=== PATIENT | female | born 1945 | race Caucasian/White ===

== ENCOUNTER 2018-11-21 12:35 | Emergency (ER) | payer MEDICARE, OTHER ==
[2018-11-21 12:49] VITALS: BP 170/72
--- NOTE | 2018-11-21 13:00 | EDM.PDOC ---
ED HPI GENERAL MEDICAL PROBLEM - General Chief Complaint: Respiratory Problem Stated Complaint: RESPIRATORY ISSUES Time Seen by Provider: 11/21/18 12:56 - History of Present Illness INITIAL COMMENTS - FREE TEXT/NARRATIVE: 73-year-old female presents emergency room with increasing shortness of breath. Patient has O2 dependent COPD she's on 2-1/2 L all the time. Yesterday she started coming down with a runny nose and when she woke up this morning she had worsening shortness of breath. Patient has nebulizers at home she uses albuterol once a day then she uses her inhalers later in the day if she needs them. She has not increased the use of her nebulizer. She's had some increasing chest discomfort with this shortness of breath. She's not aware of any fevers or chills. Left Flank Pain Score (Numeric/FACES): 8 - Related Data Allergies Allergy/AdvReac Type Severity Reaction Status Date / Time No Known Allergies Allergy Verified 11/21/18 12:49 Home Meds: Home Meds Abaloparatide [Tymlos] 1.56 ml SQ DAILY 08/13/17 [History] Acetaminophen/HYDROcodone [[place] 325-5 MG] 1 tab PO Q12H 08/13/17 [History] Acetaminophen/HYDROcodone [[place] 325-5 MG] 1 tab PO Q12H 08/13/17 [History] Albuterol [Proventil HFA] 2 puff INH Q6H 08/13/17 [History] Albuterol [Proventil Neb Soln] 1 dose NEB Q4H PRN 08/13/17 [History] Albuterol [Proventil Neb Soln] 1 dose NEB TID 08/13/17 [History] Allopurinol [Zyloprim] 100 mg PO BID 08/13/17 [History] Aspirin [Halfprin] 81 mg PO DAILY 08/13/17 [History] Clopidogrel [Plavix] 75 mg PO DAILY 08/13/17 [History] Cranberry Fruit Concentrate [Azo Cranberry] 1 tab PO DAILY 08/13/17 [History] Ezetimibe [Zetia] 10 mg PO DAILY 08/13/17 [History] Furosemide [Lasix] 20 mg PO DAILY 08/13/17 [History] Gabapentin [Gralise] 600 mg PO BID 08/13/17 [History] Insulin Detemir [Levemir] 30 units SQ DAILY 08/13/17 [History] Isosorbide Mononitrate [Imdur] 30 mg PO DAILY 08/13/17 [History] Losartan [Cozaar] 50 mg PO DAILY 08/13/17 [History] Metoprolol Tartrate [Lopressor] 25 mg PO BID 08/13/17 [History] Nitroglycerin [Nitrostat] 0.4 mg SL ASDIRECTED PRN 08/13/17 [History] Spironolactone [Aldactone] 25 mg PO QAM 08/13/17 [History] Tiotropium Br/Olodaterol HCl [Stiolto Respimat Inhal [place]] 2 puff INH DAILY [History] amLODIPine Besylate [Norvasc] 10 mg PO DAILY 08/13/17 [History] atorvaSTATin [Lipitor] 40 mg PO DAILY 08/13/17 [History] Doxycycline [Vibramycin] 100 mg PO Q12H #14 tab 11/21/18 [Rx] predniSONE 10 mg PO .TAPER #30 tab 11/21/18 [Rx] Past Medical History HEENT History: Reports: Impaired Vision Other HEENT History: Wears glasses Cardiovascular History: Reports: CAD, High Cholesterol, Hypertension, [place], Stents , Other (See Below) Other Cardiovascular History: edema, hypotension Respiratory History: Reports: COPD, Sleep Apnea, SOB, Other (See Below) Other Respiratory History: restrictive lung disease, oxygen at night and during Gastrointestinal History: Reports: GERD Other Genitourinary History: HX of Renal Insuff. 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 Musculoskeletal History: Reports: Arthritis, Osteoporosis Neurological History: Reports: Other (See Below) Other Neuro History: back surgery Psychiatric History: Reports: None Endocrine/Metabolic History: Reports: Diabetes, Type II Hematologic History: Reports: None Immunologic History: Reports: None Oncologic (Cancer) History: Reports: None Other Dermatologic History: eczema - Past Surgical History Head Surgeries/Procedures: Reports: None Cardiovascular Surgical History: Reports: None Respiratory Surgical History: Reports: None GI Surgical History: Reports: None Endocrine Surgical History: Reports: None Neurological Surgical History: Reports: None Musculoskeletal Surgical History: Reports: Arthroscopic Knee, Shoulder Surgery Other Musculoskeletal Surgeries/Procedures:: Knee surgery 3 months ago Social & Family History - Tobacco Use Smoking Status *Q: Never Smoker Second Hand Smoke Exposure: No - Caffeine Use Caffeine Use: Reports: Energy Drinks, Tea - Recreational Drug Use Recreational Drug Use: No ED ROS GENERAL - Review of Systems Review Of Systems: See Below Constitutional: Reports: No Symptoms HEENT: Reports: Rhinitis, Sinus Problem Respiratory: Reports: Shortness of Breath, Wheezing, Pleuritic Chest Pain, Cough , Sputum (Perhaps a little bit she is unsure if it's coming from her lungs or from postnasal drip). Denies: Hemoptysis Cardiovascular: Denies: Dyspnea on Exertion, Edema, Palpitations Endocrine: Reports: No Symptoms GI/Abdominal: Reports: No Symptoms : Reports: No Symptoms ED EXAM, GENERAL - Physical Exam Exam: See Below Exam Limited By: No Limitations General Appearance: Alert, No Apparent Distress Eye Exam: Bilateral Eye: Conjunctival Injection (Not much conjunctival injection she's got a fair amount of dried debris on the eyelashes most consistent with blepharitis.) Ears: Normal External Exam, Normal Canal, Hearing Grossly Normal Nose: Clear Rhinorrhea, Other (No sinus tenderness with percussion) Throat/Mouth: Normal Inspection, Normal Lips, Normal Oropharynx, Normal Voice, No Airway Compromise Head: Atraumatic, Normocephalic Neck: Normal Inspection, Supple, Non-Tender, Full Range of Motion Respiratory/Chest: No Respiratory Distress, Normal Breath Sounds, Crackles ( bilateral lung bases), Other (Slightly diminished breath sounds lung sounds otherwise clear). No: Lungs Clear Cardiovascular: Regular Rate, Rhythm, Systolic Murmur (3/6 heard best in the left upper sternal border) GI/Abdominal: Normal Bowel Sounds, Soft, Non-Tender, Other (Obese) Neurological: Alert, Oriented, Normal Cognition Course - Vital Signs Last Recorded V/S: Last Vital Signs Temp 37.2 C 11/21/18 12:48 Pulse 93 11/21/18 12:48 Resp 20 11/21/18 12:48 BP 170/72 H 11/21/18 12:48 Pulse Ox 90 L 11/21/18 13:19 - Orders/Labs/Meds Orders: Active Orders 24 hr Category Date Time Status EKG Documentation Completion [RC] STAT Care 11/21/18 13:20 Active RT Aerosol Therapy [RC] ASDIRECTED Care 11/21/18 13:19 Active Chest 1V Frontal [CR] Stat Exams 11/21/18 13:19 Taken Labs: Laboratory Tests 11/21/18 11/21/18 Range/Units 13:31 13:31 WBC 14.47 H (3.98-10.04) K/mm3 RBC 4.53 (3.98-5.22) M/mm3 Hgb 13.9 (11.2-15.7) gm/L Hct 42.2 (34.1-44.9) % MCV 93.2 (79.4-94.8) fl MCH 30.7 (25.6-32.2) pg MCHC 32.9 (32.2-35.5) g/dl RDW Std Deviation 43.5 (36.4-46.3) fL Plt Count 280 (182-369) K/mm3 MPV 9.1 L (9.4-12.3) fl Neutrophils % (Manual) 83 H (40-60) % Band Neutrophils % 0 (0-10) % Lymphocytes % (Manual) 9 L (20-40) % Atypical Lymphs % 0 % Monocytes % (Manual) 7 (2-10) % Eosinophils % (Manual) 1 (0.7-5.8) % Basophils % (Manual) 0 L (0.1-1.2) Platelet Estimate Adequate RBC Morph Comment Normal Sodium 138 (136-145) mEq/L Potassium 3.6 (3.5-5.1) mEq/L Chloride 103 (98-107) mEq/L Carbon Dioxide 25 (21-32) mEq/L Anion Gap 13.6 (5-15) BUN 14 (7-18) mg/dL Creatinine 1.0 (0.55-1.02) mg/dL Est Cr Clr Drug Dosing 34.91 mL/min Estimated GFR (MDRD) 54 (>60) mL/min BUN/Creatinine Ratio 14.0 (14-18) Glucose 116 H (83-115) mg/dL Calcium 9.6 (8.5-10.1) mg/dL Total Bilirubin 0.6 (0.2-1.0) mg/dL AST 20 (15-37) U/L ALT 16 (14-59) U/L Alkaline Phosphatase 105 (46-116) U/L Troponin I < 0.017 (0.00-0.056) ng/mL Total Protein 7.4 (6.4-8.2) g/dl Albumin 2.9 L (3.4-5.0) g/dl Globulin 4.5 gm/dL Albumin/Globulin Ratio 0.6 L (1-2) Meds: Medications Discontinued Medications Generic Name Dose Route Start Last Admin Trade Name Anival PRN Reason Stop Dose Admin Albuterol/Ipratropium 3 ml 11/21/18 13:19 11/21/18 13:27 Duoneb 3.0-0.5 Mg/3 Ml NEB 11/21/18 13:20 3 ml ONETIME ONE Administration Prednisone 60 mg 11/21/18 13:21 11/21/18 13:41 Prednisone PO 11/21/18 13:22 60 mg ONETIME ONE Administration - Re-Assessments/Exams Free Text/Narrative Re-Assessment/Exam: 11/21/18 15:17 Labs reviewed patient is doing much better and would really like to go home chest x-ray shows some atelectasis in the right lung base suspect she may have an infiltrate or some atelectasis behind the heart but I one view chest discomfort hard to know for sure. Discussed this with the patient she would like to go home we'll start her on doxycycline she'll increase her albuterol nebulizers to 4 times a day at home from once a day and put her on some oral steroids. Departure - Departure Time of Disposition: 15:19 Disposition: Home, Self-Care 01 Clinical Impression: COPD exacerbation, Blepharitis of both eyes - Discharge Information Prescriptions: Doxycycline [Vibramycin] 100 mg PO Q12H #14 tab predniSONE 10 mg PO .TAPER #30 tab Referrals: Man Corbett MD [Primary Care Provider] - Forms: ED Department Discharge Additional Instructions: Return to emergency room with any questions problems worsening symptoms. Take the medications as directed. You be on a prednisone taper and doxycycline twice daily for a week. Increase her nebulizers to at least 4 times a day every 6 hours and if needed may increase it to every 4 hours. Follow-up with Dr. Ballesteros early this next week. Use warm moist compresses over your eyes every couple hours while awake and first thing in the morning when in the shower use Pedro's baby shampoo over the eyelashes. - My Orders Last 24 Hours: My Active Orders 11/21/18 13:19 RT Aerosol Therapy [RC] ASDIRECTED Chest 1V Frontal [CR] Stat 11/21/18 13:20 EKG Documentation Completion [RC] STAT - Assessment/Plan Last 24 Hours: My Active Orders 11/21/18 13:19 RT Aerosol Therapy [RC] ASDIRECTED Chest 1V Frontal [CR] Stat 11/21/18 13:20 EKG Documentation Completion [RC] STAT
[2018-11-21] MEDS ORDERED: Albuterol/Ipratropium 3.0-0.5 MG/3 ML Neb Soln NEB ONE (13:19)
[2018-11-21] MEDS ORDERED: predniSONE 20 MG Tab PO ONE (13:21)
[2018-11-21] MEDS ORDERED: Doxycycline 100 MG Cap PO ONE (15:18)
--- NOTE | 2018-11-23 09:22 | CR ---
Chest: Portable view of the chest was obtained. Comparison: Prior chest CT study of 08/09/16 and chest x-ray of 05/01/09. Heart size and mediastinum are within normal limits for portable technique. Slight increased density is noted behind the left heart. Lungs otherwise are clear. Bony structures show degenerative change within both shoulders. Scoliosis and degenerative change are seen within the spine. Impression: 1. Slight increased density behind the left heart. Mild area of pneumonia is a possibility if patient has infectious symptoms. 2. Other findings believed to be chronic. Diagnostic code #3
== END 2018-11-21 15:38 | disposition home or self-care (01) ==
LOC: JD.ED 12:35
DX: J44.1 Chronic obstructive pulmonary disease with (acute) exacerbation (principal); H01.006 Unspecified blepharitis left eye, unspecified eyelid; H01.003 Unspecified blepharitis right eye, unspecified eyelid; I10 Essential (primary) hypertension; E11.9 Type 2 diabetes mellitus without complications; I25.2 Old myocardial infarction; E78.00 Pure hypercholesterolemia, unspecified; Z79.899 Other long term (current) drug therapy; Z79.51 Long term (current) use of inhaled steroids; Z79.82 Long term (current) use of aspirin; Z90.710 Acquired absence of both cervix and uterus
CPT/HCPCS: 36415; 71045; 80053; 84484; 85007; 85027; 93005; 94640; 99284; A9270; 99283; J7620-GY

== ENCOUNTER 2019-04-15 17:41 | Emergency (ER) | payer MEDICARE, OTHER ==
[2019-04-15 18:15] VITALS: BP 140/83; PULSE 83
--- NOTE | 2019-04-15 18:44 | EDM.PDOC ---
<Josselin Felix - Last Filed: 04/15/19 18:35> ED HPI GENERAL MEDICAL PROBLEM - General Chief Complaint: Respiratory Problem Stated Complaint: COLD Time Seen by Provider: 04/15/19 18:25 Source of Information: Reports: Patient History Limitations: Reports: No Limitations - History of Present Illness INITIAL COMMENTS - FREE TEXT/NARRATIVE: 73-year-old female presents with a productive cough and shortness of breath for a couple days. She states that she has a history of COPD and had an acute exacerbation in the fall for which she was placed on antibiotics. She has received her influenza vaccination and is a non-smoker. She describes this episode's cough as productive, but denies hemoptysis. She has also had chills but no fever. The patient states that she becomes very short of breath with activity, which mildly improves with rest. She has been using her home oxygen more frequently which has caused a few scant nosebleeds. The patient denies sinus congestion, ear pain, vomiting, and diarrhea. She has had body aches, nausea, and a mild sore throat. Onset: Other (a couple days ago) Location: Reports: Chest Improves with: Reports: Rest Worsens with: Reports: Movement Associated Symptoms: Reports: cough w sputum, Fever/Chills (chills, no fever ), Nausea/Vomiting (nausea, no vomiting), Shortness of Breath. 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 Shoulder Pain Score (Numeric/FACES): 5 - Related Data Allergies Allergy/AdvReac Type Severity Reaction Status Date / Time No Known Allergies Allergy Verified 02/01/19 15:44 Home Meds: Home Meds Abaloparatide [Tymlos] 1.56 ml SQ DAILY 08/13/17 [History] Acetaminophen/HYDROcodone [[place] 325-5 MG] 1 tab PO Q12H 08/13/17 [History] Acetaminophen/HYDROcodone [[place] 325-5 MG] 1 tab PO Q12H 08/13/17 [History] Albuterol [Proventil HFA] 2 puff INH Q6H 08/13/17 [History] Albuterol [Proventil Neb Soln] 1 dose NEB Q4H PRN 08/13/17 [History] Albuterol [Proventil Neb Soln] 1 dose NEB TID 08/13/17 [History] Aspirin [Halfprin] 81 mg PO DAILY 08/13/17 [History] Clopidogrel [Plavix] 75 mg PO DAILY 08/13/17 [History] Cranberry Fruit Concentrate [Azo Cranberry] 1 tab PO DAILY 08/13/17 [History] Ezetimibe [Zetia] 10 mg PO DAILY 08/13/17 [History] Furosemide [Lasix] 20 mg PO DAILY 08/13/17 [History] Gabapentin [Gralise] 600 mg PO BID 08/13/17 [History] Insulin Detemir [Levemir] 30 units SQ DAILY 08/13/17 [History] Isosorbide Mononitrate [Imdur] 30 mg PO DAILY 08/13/17 [History] Losartan [Cozaar] 50 mg PO DAILY 08/13/17 [History] Metoprolol Tartrate [Lopressor] 25 mg PO BID 08/13/17 [History] Nitroglycerin [Nitrostat] 0.4 mg SL ASDIRECTED PRN 08/13/17 [History] Spironolactone [Aldactone] 25 mg PO QAM 08/13/17 [History] Tiotropium Br/Olodaterol HCl [Stiolto Respimat Inhal [place]] 2 puff INH DAILY [History] allopurinoL [Zyloprim] 100 mg PO BID 08/13/17 [History] amLODIPine Besylate [Norvasc] 10 mg PO DAILY 08/13/17 [History] atorvaSTATin [Lipitor] 40 mg PO DAILY 08/13/17 [History] Doxycycline [Vibramycin] 100 mg PO Q12H #14 tab 11/21/18 [Rx] predniSONE 10 mg PO .TAPER #30 tab 11/21/18 [Rx] Doxycycline [Vibramycin] 100 mg PO BID #14 tab 04/15/19 [Rx] predniSONE 20 mg PO ASDIRECTED #15 tab 04/15/19 [Rx] Past Medical History HEENT History: Reports: Impaired Vision Other HEENT History: Wears glasses Cardiovascular History: Reports: CAD, High Cholesterol, Hypertension, [place], Stents , Other (See Below) Other Cardiovascular History: edema, hypotension Respiratory History: Reports: COPD, Sleep Apnea, SOB, Other (See Below) Other Respiratory History: restrictive lung disease, oxygen at night and during Gastrointestinal History: Reports: GERD Other Genitourinary History: HX of Renal Insuff. 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 Musculoskeletal History: Reports: Arthritis, Osteoporosis Neurological History: Reports: Other (See Below) Other Neuro History: back surgery Psychiatric History: Reports: None Endocrine/Metabolic History: Reports: Diabetes, Type II Hematologic History: Reports: None Immunologic History: Reports: None Oncologic (Cancer) History: Reports: None Other Dermatologic History: eczema - Past Surgical History Head Surgeries/Procedures: Reports: None Cardiovascular Surgical History: Reports: None Respiratory Surgical History: Reports: None GI Surgical History: Reports: None Female Surgical History: Reports: Hysterectomy Endocrine Surgical History: Reports: None Neurological Surgical History: Reports: None Musculoskeletal Surgical History: Reports: Arthroscopic Knee, Shoulder Surgery, Other (See Below) Other Musculoskeletal Surgeries/Procedures:: Knee surgery 3 months ago, back surgery. Social & Family History - Tobacco Use Smoking Status *Q: Never Smoker Second Hand Smoke Exposure: Yes - Caffeine Use Caffeine Use: Reports: Coffee, Energy Drinks, Tea - Recreational Drug Use Recreational Drug Use: No ED ROS GENERAL - Review of Systems Review Of Systems: See Below Constitutional: Reports: Chills, Fatigue. Denies: Fever HEENT: Reports: Nosebleed (scant from oxygen use), Throat Pain (mild). Denies: Ear Pain, Eye Pain, Sinus Problem, Throat Swelling Respiratory: Reports: Shortness of Breath, Cough, Sputum. Denies: Hemoptysis Cardiovascular: Reports: Dyspnea on Exertion. Denies: Chest Pain, Palpitations GI/Abdominal: Reports: Nausea. Denies: Abdominal Pain, Constipation, Diarrhea, Vomiting : Reports: No Symptoms Musculoskeletal: Reports: Other (generalized body aches) Skin: Reports: No Symptoms Neurological: Reports: No Symptoms Psychiatric: Reports: No Symptoms Immunologic: Reports: No Symptoms ED EXAM, GENERAL - Physical Exam Exam: See Below Exam Limited By: No Limitations General Appearance: Alert, WD/WN, Mild Distress Ears: Normal External Exam, Normal Canal, Hearing Grossly Normal, Normal TMs Nose: Normal Inspection, Normal Mucosa, No Blood Throat/Mouth: Normal Inspection, Normal Lips, Normal Teeth, Normal Gums, Normal Oropharynx, Normal Voice, No Airway Compromise Head: Atraumatic, Normocephalic Neck: Normal Inspection, Supple, Non-Tender, Full Range of Motion Respiratory/Chest: No Accessory Muscle Use, Chest Non-Tender, Respiratory Distress (mild), Crackles Cardiovascular: Normal Peripheral Pulses, Regular Rate, Rhythm, Systolic Murmur (2+) Neurological: Alert, Oriented, Normal Cognition Psychiatric: Normal Affect, Normal Mood Skin Exam: Warm, Dry, Intact, Normal Color, No Rash Course - Vital Signs Last Recorded V/S: Last Vital Signs Temp 97.7 F 04/15/19 18:03 Pulse 83 04/15/19 18:03 Resp 18 04/15/19 18:03 BP 140/83 04/15/19 18:03 Pulse Ox 90 L 04/15/19 18:39 - Orders/Labs/Meds Labs: Laboratory Tests 04/15/19 04/15/19 Range/Units 18:45 18:45 WBC 11.41 H (3.98-10.04) K/mm3 RBC 4.31 (3.98-5.22) M/mm3 Hgb 13.4 (11.2-15.7) gm/dl Hct 41.5 (34.1-44.9) % MCV 96.3 H (79.4-94.8) fl MCH 31.1 (25.6-32.2) pg MCHC 32.3 (32.2-35.5) g/dl RDW Std Deviation 48.7 H (36.4-46.3) fL Plt Count 274 (182-369) K/mm3 MPV 8.9 L (9.4-12.3) fl Neutrophils % (Manual) 82 H (40-60) % Band Neutrophils % 0 (0-10) % Lymphocytes % (Manual) 16 L (20-40) % Atypical Lymphs % 0 % Monocytes % (Manual) 2 (2-10) % Eosinophils % (Manual) 0 L (0.7-5.8) % Basophils % (Manual) 0 L (0.1-1.2) Platelet Estimate Adequate RBC Morph Comment Normal Sodium 138 (136-145) mEq/L Potassium 3.9 (3.5-5.1) mEq/L Chloride 102 (98-107) mEq/L Carbon Dioxide 27 (21-32) mEq/L Anion Gap 12.9 (5-15) BUN 13 (7-18) mg/dL Creatinine 1.2 H (0.55-1.02) mg/dL Est Cr Clr Drug Dosing 29.10 mL/min Estimated GFR (MDRD) 44 (>60) mL/min BUN/Creatinine Ratio 10.8 L (14-18) Glucose 90 (83-115) mg/dL Calcium 10.2 H (8.5-10.1) mg/dL Total Bilirubin 0.6 (0.2-1.0) mg/dL AST 33 (15-37) U/L ALT 26 (14-59) U/L Alkaline Phosphatase 115 (46-116) U/L Total Protein 7.7 (6.4-8.2) g/dl Albumin 3.3 L (3.4-5.0) g/dl Globulin 4.4 gm/dL Albumin/Globulin Ratio 0.8 L (1-2) Departure - Departure Disposition: Home, Self-Care 01 Clinical Impression: Bronchopneumonia, COPD exacerbation - Discharge Information Instructions: Chronic Obstructive Pulmonary Disease Exacerbation, [id number] Referrals: Man Corbett MD [Primary Care Provider] - Forms: ED Department Discharge Additional Instructions: You were evaluated in the ED today regarding your increased respiratory difficulty and cough. Laboratory evaluation demonstrates to have a mildly increased white count, and your chest x-ray was suggestive of a bronchopneumonia. You will be started on a course of prednisone; and doxycycline, an antibiotic. Please take 1 tab 2 times daily until gone. You may continue to use your home oxygen as tolerated, you may try to use some saline moisturizing gel to help provide lubrication to your nares to help prevent nosebleeds due to increased oxygen use. Please continue to use your albuterol inhalers/nebulizers as directed, you may want to try to increase your nebulizer to 4 times daily if you are not already doing so. This should help also relieve the work of breathing. Recommend a close follow-up with your family physician early next week, or seek re-evaluation sooner if your symptoms seem to change or worsen. Please return to the ED at any time if your symptoms change or worsen. Sepsis Event Note - Evaluation Sepsis Screening Result: No Definite Risk - Focused Exam Vital Signs: Vital Signs Temp Pulse Resp BP Pulse Ox Pulse Ox 04/15/19 18:39 90 L 04/15/19 18:03 97.7 F 83 18 140/83 88 L Date Exam was Performed: 04/15/19 Time Exam was Performed: 18:35 <Roseanne Quiroz - Last Filed: 04/15/19 20:04> Course - Re-Assessments/Exams Free Text/Narrative Re-Assessment/Exam: 04/15/19 19:10 I have read and reviewed the student's HPI and examined the patient and agree with NEERU Vasquez-student. Patient presents to the ED for the evaluation of a cough and increasing congestion. CBC, CMP, influenza screen, chest x-ray will be done at this time. If all are within normal limits, patient is likely having an exacerbation of her chronic lung disease. Patient will likely be treated with steroids and a possible antibiotic. 04/15/19 19:58 Patient's chest x-ray is read as increased lung markings within the right side of the chest, with lesser increased markings noted on the left side, findings presumably represent rather diffuse bronchopneumonia. And other incidental findings. Due to the patient's clinical course, her laboratory evaluation demonstrates a mildly elevated CBC at 11,000, patient will be treated with prednisone and antibiotics and sent home at this time with other general recommendations. Departure - Departure Time of Disposition: 20:00 Condition: Fair - Discharge Information *PRESCRIPTION DRUG MONITORING PROGRAM REVIEWED*: No *COPY OF PRESCRIPTION DRUG MONITORING REPORT IN PATIENT CRISTÓBAL: No Sepsis Event Note - Focused Exam Date Exam was Performed: 04/15/19 Time Exam was Performed: 19:58
--- NOTE | 2019-04-15 19:42 | CR ---
Chest: 2 views of the chest were obtained. Comparison: Prior chest x-ray of 02/15/19. Increased lung markings are noted within the right side of the chest. Lesser increased markings are noted on the left side. Heart size is normal. Upper mediastinum is normal. Scoliosis and degenerative change is noted within the spine. Impression: 1. Increased lung markings as described above. Findings presumably represent rather diffuse bronchopneumonia. 2. Other findings which are believed to be incidental as noted above. Diagnostic code #3 Study was dictated in [place] Standard Time
== END 2019-04-15 20:25 | disposition home or self-care (01) ==
LOC: JD.ED 17:41
DX: J18.0 Bronchopneumonia, unspecified organism (principal); J44.1 Chronic obstructive pulmonary disease with (acute) exacerbation; I25.10 Atherosclerotic heart disease of native coronary artery without angina pectoris; E78.00 Pure hypercholesterolemia, unspecified; I10 Essential (primary) hypertension; I25.2 Old myocardial infarction; M81.0 Age-related osteoporosis without current pathological fracture; E11.9 Type 2 diabetes mellitus without complications; Z95.5 Presence of coronary angioplasty implant and graft; Z79.82 Long term (current) use of aspirin; Z79.02 Long term (current) use of antithrombotics/antiplatelets; Z79.4 Long term (current) use of insulin; Z79.899 Other long term (current) drug therapy; Z79.51 Long term (current) use of inhaled steroids; Z79.52 Long term (current) use of systemic steroids
CPT/HCPCS: 36415; 71046; 71046-26; 80053; 85007; 85027; 87804; 99285-25

== ENCOUNTER 2019-05-19 14:15 | Inpatient (IN) | payer MEDICARE, OTHER ==
[2019-05-19] MEDS ORDERED: Sodium Chloride 0.9% 10 ML Syringe FLUSH PRN (14:34)
[2019-05-19] MEDS ORDERED: Albuterol/Ipratropium 3.0-0.5 MG/3 ML Neb Soln NEB ONE (14:35)
[2019-05-19] MEDS ORDERED: methylPREDNISolone Sodium Succinate 125 MG/2 ML SDV IVPUSH ONE (14:36)
--- NOTE | 2019-05-19 14:41 | EDM.PDOC ---
ED HPI GENERAL MEDICAL PROBLEM - General Chief Complaint: Respiratory Problem Stated Complaint: SOB Time Seen by Provider: 05/19/19 14:30 Source of Information: Reports: Patient History Limitations: Reports: No Limitations - History of Present Illness INITIAL COMMENTS - FREE TEXT/NARRATIVE: The patient presents for shortness of breath, chest pain and a cough. She has a history of COPD and she is on inhalers and nebs. She is also on home oxygen as needed. She said about 3 weeks ago she got over pneumonia and since then she has been coughing, short of breath and having chest pain. The pain is in the center of the chest and worse when taking a deep breath. She has no fever or chills. She has no abdominal pain, nausea or vomiting. She has no history of DVR or PE. She is on coumadin for a "clot in her heart." Onset: Gradual Duration: Week(s): Location: Reports: Chest Quality: Reports: Sharp Severity: Mild Improves with: Reports: None Worsens with: Reports: None Associated Symptoms: Reports: Chest Pain, Cough, Shortness of Breath. Denies: Fever/Chills, Headaches, Nausea/Vomiting - Related Data Allergies Allergy/AdvReac Type Severity Reaction Status Date / Time No Known Allergies Allergy Verified 05/19/19 14:34 Home Meds: Home Meds Abaloparatide [Tymlos] 1.56 ml SQ DAILY 08/13/17 [History] Acetaminophen/HYDROcodone [[place] 325-5 MG] 1 tab PO Q12H 08/13/17 [History] Albuterol [Proventil HFA] 2 puff INH Q6H 08/13/17 [History] Albuterol [Proventil Neb Soln] 1 dose NEB TID 08/13/17 [History] Aspirin [Halfprin] 81 mg PO DAILY 08/13/17 [History] Cranberry Fruit Concentrate [Azo Cranberry] 1 tab PO DAILY 08/13/17 [History] Ezetimibe [Zetia] 10 mg PO DAILY 08/13/17 [History] Furosemide [Lasix] 20 mg PO DAILY 08/13/17 [History] Gabapentin [Gralise] 600 mg PO BID 08/13/17 [History] Insulin Detemir [Levemir] 30 units SQ DAILY 08/13/17 [History] Isosorbide Mononitrate [Imdur] 30 mg PO DAILY 08/13/17 [History] Losartan [Cozaar] 50 mg PO DAILY 08/13/17 [History] Metoprolol Tartrate [Lopressor] 25 mg PO BID 08/13/17 [History] Nitroglycerin [Nitrostat] 0.4 mg SL ASDIRECTED PRN 08/13/17 [History] Spironolactone [Aldactone] 25 mg PO QAM 08/13/17 [History] Tiotropium Br/Olodaterol HCl [Stiolto Respimat Inhal [place]] 2 puff INH DAILY [History] allopurinoL [Zyloprim] 100 mg PO BID 08/13/17 [History] amLODIPine Besylate [Norvasc] 10 mg PO DAILY 08/13/17 [History] atorvaSTATin [Lipitor] 40 mg PO DAILY 08/13/17 [History] Insulin Aspart [NovoLOG] 6 unit SQ BEDTIME 05/19/19 [History] Warfarin Sodium [Coumadin] 2 mg PO MOWEFR 05/19/19 [History] Warfarin Sodium [Coumadin] 3 mg PO SUTUTHSA 05/19/19 [History] Past Medical History HEENT History: Reports: Impaired Vision Other HEENT History: Wears glasses Cardiovascular History: Reports: CAD, High Cholesterol, Hypertension, CT, Stents , Other (See Below) Other Cardiovascular History: edema, hypotension Respiratory History: Reports: COPD, Sleep Apnea, SOB, Other (See Below) Other Respiratory History: restrictive lung disease, oxygen at night and during Gastrointestinal History: Reports: GERD Other Genitourinary History: HX of Renal Insuff. Other PULL UP HAND History: hysterectomy Musculoskeletal History: Reports: Arthritis, Osteoporosis Neurological History: Reports: Other (See Below) Other Neuro History: back surgery Psychiatric History: Reports: None Endocrine/Metabolic History: Reports: Diabetes, Type II Hematologic History: Reports: None Immunologic History: Reports: None Oncologic (Cancer) History: Reports: None Other Dermatologic History: eczema - Past Surgical History Head Surgeries/Procedures: Reports: None Cardiovascular Surgical History: Reports: None Respiratory Surgical History: Reports: None GI Surgical History: Reports: None Female Surgical History: Reports: Hysterectomy Endocrine Surgical History: Reports: None Neurological Surgical History: Reports: None Musculoskeletal Surgical History: Reports: Arthroscopic Knee, Shoulder Surgery, Other (See Below) Other Musculoskeletal Surgeries/Procedures:: Knee surgery 3 months ago, back surgery. Social & Family History - Caffeine Use Caffeine Use: Reports: Coffee, Energy Drinks, Tea ED ROS GENERAL - Review of Systems Review Of Systems: See Below Constitutional: Reports: No Symptoms HEENT: Reports: No Symptoms Respiratory: Reports: Shortness of Breath, Cough Cardiovascular: Reports: Chest Pain Endocrine: Reports: No Symptoms GI/Abdominal: Reports: No Symptoms : Reports: No Symptoms Musculoskeletal: Reports: No Symptoms ED EXAM, GENERAL - Physical Exam Exam: See Below Exam Limited By: No Limitations General Appearance: Alert, No Apparent Distress Ears: Normal External Exam Nose: Normal Inspection Head: Atraumatic, Normocephalic Neck: Normal Inspection Respiratory/Chest: No Respiratory Distress, Decreased Breath Sounds Cardiovascular: Regular Rate, Rhythm, No Edema, No Murmur GI/Abdominal: Soft, Non-Tender, No Organomegaly, No Mass Back Exam: Normal Inspection Extremities: Normal Inspection Course - Vital Signs Last Recorded V/S: Last Vital Signs Temp 97.8 F 05/19/19 14:29 Pulse 102 H 05/19/19 14:29 Resp 27 H 05/19/19 14:29 BP 141/83 H 05/19/19 14:29 Pulse Ox 95 05/19/19 14:35 - Orders/Labs/Meds Orders: Active Orders 24 hr Category Date Time Status Cardiac Monitoring [RC] . DIRECTED Care 05/19/19 14:34 Active EKG Documentation Completion [RC] STAT Care 05/19/19 14:35 Active Oxygen Therapy [RC] PRN Care 05/19/19 14:34 Active Peripheral IV Care [RC] . DIRECTED Care 05/19/19 14:35 Active RT Aerosol Therapy [RC] ASDIRECTED Care 05/19/19 14:35 Active RT Aerosol Therapy [RC] ASDIRECTED Care 05/19/19 16:06 Active Chest 1V Frontal [CR] Stat Exams 05/19/19 14:35 Taken ABG [BLOOD GAS ARTERIAL] [BG] Stat Lab 05/19/19 16:19 Ordered PROCALCITONIN [REF] Stat Lab 05/19/19 16:18 Ordered Sodium Chloride 0.9% [Saline Flush] Med 05/19/19 14:34 Active 10 ml FLUSH ASDIRECTED PRN Peripheral IV Insertion Adult [OM.PC] Stat Oth 05/19/19 14:34 Ordered Medication Orders Sodium Chloride (Saline Flush) 10 ml FLUSH ASDIRECTED PRN PRN Reason: Keep Vein Open Labs: Laboratory Tests 05/19/19 05/19/19 05/19/19 Range/Units 15:05 15:05 15:05 WBC 10.38 H (3.98-10.04) K/mm3 RBC 4.52 (3.98-5.22) M/mm3 Hgb 13.8 (11.2-15.7) gm/dl Hct 43.0 (34.1-44.9) % MCV 95.1 H (79.4-94.8) fl MCH 30.5 (25.6-32.2) pg MCHC 32.1 L (32.2-35.5) g/dl RDW Std Deviation 48.6 H (36.4-46.3) fL Plt Count 431 H D (182-369) K/mm3 MPV 8.8 L (9.4-12.3) fl Neut % (Auto) 68.4 (34.0-71.1) % Lymph % (Auto) 18.1 L (19.3-51.7) % [place] % (Auto) 10.4 (4.7-12.5) % Eos % (Auto) 1.9 (0.7-5.8) Baso % (Auto) 0.6 (0.1-1.2) % Neut # (Auto) 7.10 H (1.56-6.13) K/mm3 Lymph # (Auto) 1.88 (1.18-3.74) K/mm3 [place] # (Auto) 1.08 H (0.24-0.36) K/mm3 Eos # (Auto) 0.20 (0.04-0.36) K/mm3 Baso # (Auto) 0.06 (0.01-0.08) K/mm3 Manual Slide Review Abnormal smear PT (9.7-12.0) SECONDS INR Sodium 141 (136-145) mEq/L Potassium 4.0 (3.5-5.1) mEq/L Chloride 104 (98-107) mEq/L Carbon Dioxide 26 (21-32) mEq/L Anion Gap 15.0 (5-15) BUN 18 (7-18) mg/dL Creatinine 1.3 H (0.55-1.02) mg/dL Est Cr Clr Drug Dosing 26.86 mL/min Estimated GFR (MDRD) 40 (>60) mL/min BUN/Creatinine Ratio 13.8 L (14-18) Glucose 137 H (83-115) mg/dL Calcium 10.9 H (8.5-10.1) mg/dL Total Bilirubin 0.4 (0.2-1.0) mg/dL AST 33 (15-37) U/L ALT 32 (14-59) U/L Alkaline Phosphatase 114 (46-116) U/L Troponin I < 0.017 (0.00-0.056) ng/mL NT-Pro-B Natriuret Pep 148 (0-450) pg/mL Total Protein 7.5 (6.4-8.2) g/dl Albumin 3.1 L (3.4-5.0) g/dl Globulin 4.4 gm/dL Albumin/Globulin Ratio 0.7 L (1-2) 03//20 Range/Units 15:05 WBC (3.98-10.04) K/mm3 RBC (3.98-5.22) M/mm3 Hgb (11.2-15.7) gm/dl Hct (34.1-44.9) % MCV (79.4-94.8) fl MCH (25.6-32.2) pg MCHC (32.2-35.5) g/dl RDW Std Deviation (36.4-46.3) fL Plt Count (182-369) K/mm3 MPV (9.4-12.3) fl Neut % (Auto) (34.0-71.1) % Lymph % (Auto) (19.3-51.7) % [place] % (Auto) (4.7-12.5) % Eos % (Auto) (0.7-5.8) Baso % (Auto) (0.1-1.2) % Neut # (Auto) (1.56-6.13) K/mm3 Lymph # (Auto) (1.18-3.74) K/mm3 [place] # (Auto) (0.24-0.36) K/mm3 Eos # (Auto) (0.04-0.36) K/mm3 Baso # (Auto) (0.01-0.08) K/mm3 Manual Slide Review PT 27.9 H (9.7-12.0) SECONDS INR 2.71 Sodium (136-145) mEq/L Potassium (3.5-5.1) mEq/L Chloride (98-107) mEq/L Carbon Dioxide (21-32) mEq/L Anion Gap (5-15) BUN (7-18) mg/dL Creatinine (0.55-1.02) mg/dL Est Cr Clr Drug Dosing mL/min Estimated GFR (MDRD) (>60) mL/min BUN/Creatinine Ratio (14-18) Glucose (83-115) mg/dL Calcium (8.5-10.1) mg/dL Total Bilirubin (0.2-1.0) mg/dL AST (15-37) U/L ALT (14-59) U/L Alkaline Phosphatase (46-116) U/L Troponin I (0.00-0.056) ng/mL NT-Pro-B Natriuret Pep (0-450) pg/mL Total Protein (6.4-8.2) g/dl Albumin (3.4-5.0) g/dl Globulin gm/dL Albumin/Globulin Ratio (1-2) Meds: Medications Generic Name Dose Route Start Last Admin Trade Name Freq PRN Reason Stop Dose Admin Sodium Chloride 10 ml 05/19/19 14:34 Saline Flush FLUSH ASDIRECTED PRN Keep Vein Open Discontinued Medications Generic Name Dose Route Start Last Admin Trade Name Freq PRN Reason Stop Dose Admin Albuterol 2.5 mg 05/19/19 16:06 Proventil Neb Soln NEB 05/19/19 16:07 ONETIME ONE Albuterol/Ipratropium 3 ml 05/19/19 14:35 05/19/19 15:02 Duoneb 3.0-0.5 Mg/3 Ml NEB 05/19/19 14:36 3 ml ONETIME ONE Administration Methylprednisolone Sodium Succinate 125 mg 05/19/19 14:36 05/19/19 15:10 Solu-Medrol IVPUSH 05/19/19 14:37 125 mg ONETIME ONE Administration - Re-Assessments/Exams Free Text/Narrative Re-Assessment/Exam: 05/19/19 14:40 I ordered oxygen, IV saline lock, labs, CXR, EKG, solu-medrol 125mg IV, and duoneb. Her oxygen saturations when she walked back was 79%. 05/19/19 16:20 Her EKG shows no acute changes. Her WBC was slightly elevated. Her creatinine was slightly elevated at 1.3. Her CXR shows no infiltrates. She feels a little better and she is moving more air. I will give her an albuterol treatment. I also feel she needs to be admitted for COPD exacerbation. I called Dr Dash and she agreed to the admission. Departure - Departure Time of Disposition: 16:25 Disposition: Refer to Observation Condition: Fair Clinical Impression: COPD exacerbation - Discharge Information Referrals: aMn Corbett MD [Primary Care Provider] - Forms: ED Department Discharge Sepsis Event Note - Evaluation Sepsis Screening Result: No Definite Risk - Focused Exam Vital Signs: Vital Signs Temp Pulse Resp BP Pulse Ox Pulse Ox 05/19/19 14:35 95 05/19/19 14:34 90 L 05/19/19 14:29 97.8 F 102 H 27 H 141/83 H 79 L Date Exam was Performed: 05/19/19 Time Exam was Performed: 16:20 - My Orders Last 24 Hours: My Active Orders 05/19/19 14:34 Cardiac Monitoring [RC] . DIRECTED Oxygen Therapy [RC] PRN Sodium Chloride 0.9% [Saline Flush] 10 ml FLUSH ASDIRECTED PRN Peripheral IV Insertion Adult [OM.PC] Stat 05/19/19 14:35 EKG Documentation Completion [RC] STAT Peripheral IV Care [RC] . DIRECTED RT Aerosol Therapy [RC] ASDIRECTED Chest 1V Frontal [CR] Stat 05/19/19 16:06 RT Aerosol Therapy [RC] ASDIRECTED 05/19/19 16:18 PROCALCITONIN [REF] Stat 05/19/19 16:19 ABG [BLOOD GAS ARTERIAL] [BG] Stat - Assessment/Plan Last 24 Hours: My Active Orders 05/19/19 14:34 Cardiac Monitoring [RC] . DIRECTED Oxygen Therapy [RC] PRN Sodium Chloride 0.9% [Saline Flush] 10 ml FLUSH ASDIRECTED PRN Peripheral IV Insertion Adult [OM.PC] Stat 05/19/19 14:35 EKG Documentation Completion [RC] STAT Peripheral IV Care [RC] . DIRECTED RT Aerosol Therapy [RC] ASDIRECTED Chest 1V Frontal [CR] Stat 05/19/19 16:06 RT Aerosol Therapy [RC] ASDIRECTED 05/19/19 16:18 PROCALCITONIN [REF] Stat 05/19/19 16:19 ABG [BLOOD GAS ARTERIAL] [BG] Stat
[2019-05-19] MEDS ORDERED: Albuterol 0.083% 2.5 MG/3 ML Neb Soln NEB ONE (16:06)
--- NOTE | 2019-05-19 16:38 | PCM.HP.2 ---
H&P History of Present Illness - General Date of Service: 05/19/19 - History of Present Illness Initial Comments - Free Text/Narative: This is a 73 year old female with past medical history of COPD, HTN and diabetes who comes to the ED complaining of worsening shortness of breath for approximately 3 weeks. As per patient she was in usual state of health up to 6 weeks ago when she was diagnosed with pneumonia, she was diagnosed in the ED and was sent home with 1 antibiotic to take for 1.5 weeks. She completed treatment and was "healthy or fine" for 1 day. Afterwards she started having increased coughing, sneezing, nasal congestion and productive cough of clear sputum and eventually turned green 4 days later. She started taking OTC medications for cold and sinus which she took for approximately 5 days. Her sinuses " cleared up" but she continued to have coughing episodes and runny nose associated with MARTINES. Once she noticed she was unable to ambulate a couple of feet without getting short of breath and O2 requirements during increased to 2LPM constantly she decided to come in for further evaluation Endorses headaches, pleuritic chest pain, productive green cough, chills, unquantified fever. Did get flu shot about 4 months ago States daughter, granddaughter where diagnosed with pneumonia. - Related Data Allergies/Adverse Reactions: Allergies Allergy/AdvReac Type Severity Reaction Status Date / Time No Known Allergies Allergy Verified 05/19/19 17:46 Home Medications: Home Meds Abaloparatide [Tymlos] 1.56 ml SQ DAILY 08/13/17 [History] Acetaminophen/HYDROcodone [[place] 325-5 MG] 1 tab PO Q12H 08/13/17 [History] Albuterol [Proventil HFA] 2 puff INH Q6H 08/13/17 [History] Albuterol [Proventil Neb Soln] 1 dose NEB TID 08/13/17 [History] Aspirin [Halfprin] 81 mg PO DAILY 08/13/17 [History] Cranberry Fruit Concentrate [Azo Cranberry] 1 tab PO DAILY 08/13/17 [History] Ezetimibe [Zetia] 10 mg PO DAILY 08/13/17 [History] Furosemide [Lasix] 20 mg PO DAILY 08/13/17 [History] Gabapentin [Gralise] 600 mg PO BID 08/13/17 [History] Insulin Detemir [Levemir] 30 units SQ DAILY 08/13/17 [History] Isosorbide Mononitrate [Imdur] 30 mg PO DAILY 08/13/17 [History] Losartan [Cozaar] 50 mg PO DAILY 08/13/17 [History] Metoprolol Tartrate [Lopressor] 25 mg PO BID 08/13/17 [History] Nitroglycerin [Nitrostat] 0.4 mg SL ASDIRECTED PRN 08/13/17 [History] Spironolactone [Aldactone] 25 mg PO QAM 08/13/17 [History] Tiotropium Br/Olodaterol HCl [Stiolto Respimat Inhal [place]] 2 puff INH DAILY [History] allopurinoL [Zyloprim] 100 mg PO BID 08/13/17 [History] amLODIPine Besylate [Norvasc] 10 mg PO DAILY 08/13/17 [History] atorvaSTATin [Lipitor] 40 mg PO DAILY 08/13/17 [History] Insulin Aspart [NovoLOG] 6 unit SQ BEDTIME 05/19/19 [History] Warfarin Sodium [Coumadin] 2 mg PO MOWEFR 05/19/19 [History] Warfarin Sodium [Coumadin] 3 mg PO SUTUTHSA 05/19/19 [History] Past Medical History HEENT History: Reports: Impaired Vision Other HEENT History: Wears glasses Cardiovascular History: Reports: CAD, High Cholesterol, Hypertension, [place], Stents , Other (See Below) Other Cardiovascular History: edema, hypotension Respiratory History: Reports: COPD, Sleep Apnea, SOB, Other (See Below) Other Respiratory History: restrictive lung disease, oxygen at night and during Gastrointestinal History: Reports: GERD Other Genitourinary History: HX of Renal Insuff. Other OB/BYN History: hysterectomy Musculoskeletal History: Reports: Arthritis, Osteoporosis Neurological History: Reports: Other (See Below) Other Neuro History: back surgery Psychiatric History: Reports: None Endocrine/Metabolic History: Reports: Diabetes, Type II Hematologic History: Reports: None Immunologic History: Reports: None Oncologic (Cancer) History: Reports: None Dermatologic History: Reports: Eczema Other Dermatologic History: eczema - Past Surgical History Head Surgeries/Procedures: Reports: None Cardiovascular Surgical History: Reports: None Respiratory Surgical History: Reports: None GI Surgical History: Reports: None Female Surgical History: Reports: Hysterectomy Endocrine Surgical History: Reports: None Neurological Surgical History: Reports: None Musculoskeletal Surgical History: Reports: Arthroscopic Knee, Shoulder Surgery, Other (See Below) Other Musculoskeletal Surgeries/Procedures:: Knee surgery 3 months ago, back surgery. Social & Family History - Tobacco Use Smoking Status *Q: Never Smoker - Caffeine Use Caffeine Use: Reports: Coffee, Energy Drinks, Tea - Recreational Drug Use Recreational Drug Use: No H&P Review of Systems - Review of Systems: Review Of Systems: See Below General: Reports: Fever, Chills, Malaise, Weakness, Fatigue, Weight Loss. Denies: Night Sweats, Decreased Appetite HEENT: Reports: Ear Pain, Headaches, Rhinitis, Post Nasal Drip, Sinus Congestion , Sore Throat Pulmonary: Reports: Shortness of Breath, Wheezing, Pleuritic Chest Pain, Cough, Sputum Cardiovascular: Reports: Chest Pain, Palpitations, Dyspnea on Exertion, Orthopnea. Denies: PND, Edema, Lightheadedness, Syncope Gastrointestinal: Reports: Anorexia, Decreased Appetite, Nausea. Denies: Abdominal Pain, Constipation, Diarrhea, Difficulty Swallowing, Vomiting Genitourinary: Denies: Dysuria, Frequency, Burning, Pain, Urgency Musculoskeletal: Reports: Back Pain, Joint Pain, Muscle Pain. Denies: Joint Swelling, Muscle Stiffness Psychiatric: Denies: Confusion, Depression Neurological: Reports: Dizziness, Headache. Denies: Confusion, Numbness, Paresthesia Exam - Exam Exam: See Below - Vital Signs Vital Signs: Last Vital Signs Temp 97.8 F 05/19/19 14:29 Pulse 102 H 05/19/19 14:29 Resp 27 H 05/19/19 14:29 BP 141/83 H 05/19/19 14:29 Pulse Ox 97 05/19/19 16:21 Weight: 73.482 kg - Exam Quality Assessment: Supplemental Oxygen General: Alert, Oriented, Cooperative, Mild Distress HEENT: Conjunctiva Clear, EACs Clear, EOMI, Hearing Intact, Mucosa Moist & [place] , Nares Patent, Normal Nasal Septum, Posterior Pharynx Clear Neck: Supple, Trachea Midline, +2 Carotid Pulse wo Bruit, Full Range of Motion. No: Lymphadenopathy Lungs: Normal Respiratory Effort, Decreased Breath Sounds, Crackles (worse at bases ). No: Rales, Rhonchi, Rub, Stridor, Wheezing Cardiovascular: Regular Rate, Regular Rhythm. No: Systolic Murmur, Diastolic Murmur, Rubs, Gallop/S3, Gallop/S4 GI/Abdominal Exam: Normal Bowel Sounds, Soft, Non-Tender. No: Distended, Guarding, Rigid, Rebound Back Exam: Normal Inspection. No: CVA Tenderness (L), CVA Tenderness (R) Extremities: Normal Inspection, Normal Range of Motion, Non-Tender, No Pedal Edema, Normal Capillary Refill Skin: Warm, Dry - Patient Data Result Diagrams: 05/19/19 15:05 05/19/19 15:05 Sepsis Event Note - Evaluation Sepsis Screening Result: No Definite Risk - Focused Exam Vital Signs: Vital Signs Temp Pulse Resp BP Pulse Ox Pulse Ox 05/19/19 16:21 97 05/19/19 14:35 95 05/19/19 14:34 90 L 05/19/19 14:29 97.8 F 102 H 27 H 141/83 H 79 L Date Exam was Performed: 05/19/19 Time Exam was Performed: 17:44 - Problem List (1) Community acquired bacterial pneumonia SNOMED Code(s): 902726325, 781855265 ICD Code: J15.9 - UNSPECIFIED BACTERIAL PNEUMONIA Status: Acute Current Visit: Yes (2) COPD (chronic obstructive pulmonary disease) SNOMED Code(s): 23064878 ICD Code: J44.9 - CHRONIC OBSTRUCTIVE PULMONARY DISEASE, UNSPECIFIED Status : Acute Current Visit: Yes (3) Diabetes mellitus SNOMED Code(s): 11791396 ICD Code: E11.9 - TYPE 2 DIABETES MELLITUS WITHOUT COMPLICATIONS Status: Acute Current Visit: Yes (4) Peripheral neuropathy SNOMED Code(s): 659700218 ICD Code: G62.9 - POLYNEUROPATHY, UNSPECIFIED Status: Acute Current Visit : Yes (5) Hypertension SNOMED Code(s): 73735160 ICD Code: I10 - ESSENTIAL (PRIMARY) HYPERTENSION Status: Acute Current Visit: Yes (6) Chronic anticoagulation SNOMED Code(s): 274096665 ICD Code: Z79.01 - TUNNEL KILN OPERATOR (CURRENT) USE OF ANTICOAGULANTS Status: Acute Current Visit: Yes (7) Warfarin anticoagulation SNOMED Code(s): 74057099, 192994900, 149888258 ICD Code: Z79.01 - TUNNEL KILN OPERATOR (CURRENT) USE OF ANTICOAGULANTS Status: Acute Current Visit: Yes (8) COPD exacerbation SNOMED Code(s): 030275172 ICD Code: J44.1 - CHRONIC OBSTRUCTIVE PULMONARY DISEASE W (ACUTE) EXACERBATION Status: Acute Current Visit: Yes (9) Dyslipidemia SNOMED Code(s): 424210911 ICD Code: E78.5 - HYPERLIPIDEMIA, UNSPECIFIED Status: Acute Current Visit : Yes (10) Coronary artery disease SNOMED Code(s): 21613247 ICD Code: I25.10 - ATHSCL HEART DISEASE OF [place] CORONARY ARTERY W/O ANG PCTRS Status: Acute Current Visit: Yes (11) Acute on chronic respiratory failure with hypoxemia SNOMED Code(s): 51373708717998937 ICD Code: J96.21 - ACUTE AND CHRONIC RESPIRATORY FAILURE WITH HYPOXIA Status: Acute Current Visit: Yes (12) Intracardiac thrombus SNOMED Code(s): 514236549 ICD Code: I51.3 - INTRACARDIAC THROMBOSIS, NOT ELSEWHERE CLASSIFIED Status : Acute Current Visit: Yes (13) Diastolic dysfunction SNOMED Code(s): 8273362 ICD Code: I51.89 - OTHER ILL-DEFINED HEART DISEASES Status: Acute Current Visit: Yes (14) Thrombocytosis SNOMED Code(s): 6227655 ICD Code: D47.3 - ESSENTIAL (HEMORRHAGIC) THROMBOCYTHEMIA Status: Acute Current Visit: Yes (15) Obstructive sleep apnea SNOMED Code(s): 91190899 ICD Code: G47.33 - OBSTRUCTIVE SLEEP APNEA (ADULT) (PEDIATRIC) Status: Acute Current Visit: Yes Problem List Initiated/Reviewed/Updated: Yes Assessment/Plan Comment:: Community acquired bacterial pneumonia vs COPD exacerbation Acute on chronic hypoxemic respiratory failure COPD (chronic obstructive pulmonary disease) Obstructive sleep apnea Evaluated in ED on 04/15 for productive cough and worsening shortness of breath for a couple of days --> "increased lung marking on R chest" + leukocytosis --> diagnosed with pneumonia and COPD exacerbation --> discharged on Doxycycline BID x 7 days As per patient felt better during treatment but had a couple of days after treatment where she felt ok She then started having worsening productive cough of white sputum which turned green eventually associated with rhinorrhea + chills + decreased appetite + headaches Did get flu vaccine 4 months ago Unclear etiology of COPD, patient denies smoking history --> no previous PFTs Usually on 2L NC during the night but has been using it at 2L constantly for at least 10 days CXR with very poor technique which precludes interpretation Due to worsening and suboptimal clinical improvement + sick contacts and hypoxemia will treat as both infectious and acute exacerbation process Did not hear any wheezing but was very wheezy and "tight" as per ED physician, given solumedrol in ED PLAN - Rocephin and Azithromycin - Procalcitonin to evaluate ATB usage - ABGs - DuoNebs q4h - Medrol dose taper - CPT with neb treatments - O2 supplementation for goal satO2 > 88% - RT assess and treat - Scheduled guaifenesin - Will evaluate need for budesonide in AM Diabetes mellitus, unknown HbA1c Peripheral neuropathy Admission glucose 137 Patient endorses compliance Home management with Levemir 30u QD PLAN - Accu checks pre-meals and HS - Start glargine 25u bedtime, adjust as necessary - Consistent carbohydrate diet - Hypoglycemia protocol - HbA1c Hypertension BP on admission 141/83 Home management with amlodipine, losartan and metoprolol PLAN - Reconcile home medications - PRN Hydralazine Thrombus in apical septal wall on echocardiogram 01/2019 on warfarin for anticoagulation INR on admission 2.71 PLAN - Pharmacy to dose warfarin - Daily INR Coronary artery disease s/p stent placement Stage 1 diastolic dysfunction Dyslipidemia Echocardiogram 01/2019 with abnormal septal motion with preserved EF at 50% Home management with aspirin, metoprolol, losartan, isosorbide mononitrate, furosemide, spironolactone, atorvastatin PLAN - Reconcile home medications - NO NEED FOR TELEMETRY PROPHYLAXIS DVT- Warfarin GI- not indicated CODE STATUS: FULL CODE DISPOSITION: Patient will be admitted to medsurg unit on scheduled nebulizations, IV antibiotics and respiratory therapy as well as oxygen supplementation. Anticipated LOS 2-3 days. From [place]. Lives at daughter's house with her, , granddaughter and great- granddaughter. Independent in ADLs, and IADLs except for transportation. PCP Dr. Ballesteros. - Mortality Measure Prognosis:: Good
[2019-05-19] MEDS ORDERED: Ondansetron 4 MG/2 ML SDV IV PRN (17:04)
[2019-05-19] MEDS ORDERED: Acetaminophen 325 MG Tab PO PRN (17:04)
[2019-05-19] MEDS ORDERED: 50% Dextrose in Water 50 ML Syringe IVPUSH PRN (17:04)
[2019-05-19] MEDS ORDERED: Ondansetron 4 MG Tab.DIS PO PRN (17:04)
[2019-05-19] MEDS ORDERED: hydrALAZINE 20 MG/ML SDV IVPUSH PRN (17:12)
[2019-05-19] MEDS: Albuterol/Ipratropium 3.0-0.5 MG/3 ML Neb Soln NEB SCH ×2 (17:42→21:31)
[2019-05-19 17:45] LABS: HEMOGLOBIN A1C 5.9 % (4.50-6.20)
[2019-05-19] MEDS ORDERED: cefTRIAXone 2 GM in Sodium Chloride 0.9% 100 ML IV SCH (18:00)
[2019-05-19] MEDS ORDERED: Warfarin Sliding Scale PO SCH (18:00)
[2019-05-19] MEDS ORDERED: Azithromycin 500 MG in Sodium Chloride 0.9% 250 ML IV SCH (18:30)
[2019-05-19] MEDS: cefTRIAXone 2 GM in Sodium Chloride 0.9% 100 ML IV SCH (18:51)
[2019-05-19] MEDS: Insulin Glarg,Human.Rec.Analog 100 Unit/ML SUBCUT SCH (21:57)
[2019-05-19] MEDS: Azithromycin 500 MG in Sodium Chloride 0.9% 250 ML IV SCH (21:59)
[2019-05-19] MEDS: guaiFENesin 600 MG Tab.ER PO SCH (22:00)
[2019-05-20] MEDS: Albuterol/Ipratropium 3.0-0.5 MG/3 ML Neb Soln NEB SCH ×6 (01:30→21:44)
--- NOTE | 2019-05-20 07:05 | CR ---
Chest: Portable view of the chest was obtained. Comparison: Prior chest x-ray of 04/15/19. Study is improved from prior chest x-ray. Lung markings are mildly increased which are felt to be accentuated from technique, although difficult to completely exclude mild bronchitis. Lungs otherwise are clear. Bony structures are grossly intact. Heart size is normal. Impression: 1. Nothing acute is definitely appreciated. 2. Findings are improved from recent exam. Diagnostic code #3 This report was dictated in [place] Standard Time
[2019-05-20] MEDS ORDERED: Enoxaparin 40 MG/0.4 ML Syringe SUBCUT SCH (09:00)
[2019-05-20] MEDS: guaiFENesin 600 MG Tab.ER PO SCH ×3 (10:19→20:11)
--- NOTE | 2019-05-20 12:36 | PCM.PN ---
- General Info Date of Service: 05/20/19 Subjective Update: Feeling better Shortness of breath improved Slept OK Tolerating diet Worked with PT No new complaints BM yesterday - Patient Data Vitals - Most Recent: Last Vital Signs Temp 98.6 F 05/20/19 11:37 Pulse 104 H 05/20/19 11:37 Resp 20 05/20/19 10:21 BP 113/60 05/20/19 11:37 Pulse Ox 93 L 05/20/19 11:37 Weight - Most Recent: 70.76 kg - Exam Quality Assessment: Supplemental Oxygen General: Alert, Oriented, Cooperative, No Acute Distress HEENT: Pupils Equal, Pupils Reactive, EOMI, Mucous Membr. Moist/[place] Neck: Supple, Trachea Midline, No JVD, No Thyromegaly, +2 Carotid Pulse wo Bruit. No: Lymphadenopathy Lungs: Normal Respiratory Effort, Decreased Breath Sounds, Crackles. No: Rales , Rhonchi, Rub, Wheezing Cardiovascular: Regular Rate, Regular Rhythm. No: Murmurs, Gallops, Rubs GI/Abdominal Exam: Normal Bowel Sounds, Soft, Non-Tender, No Organomegaly. No: Distended, Guarding, Rigid Back Exam: Normal Inspection. No: CVA Tenderness (L), CVA Tenderness (R), Paraspinal Tenderness, Vertebral Tenderness Extremities: Normal Inspection, Normal Range of Motion, Non-Tender, No Pedal Edema, Normal Capillary Refill Neurological: No New Focal Deficit Psy/Mental Status: Alert, Normal Affect, Normal Mood Sepsis Event Note - Evaluation Sepsis Screening Result: No Definite Risk - Focused Exam Vital Signs: Vital Signs Temp Pulse Resp BP Pulse Ox Pulse Ox 05/20/19 11:37 98.6 F 104 H 113/60 93 L 05/20/19 10:21 20 05/20/19 09:02 95 05/20/19 08:20 113 H 120/74 95 05/20/19 08:16 112 H 20 92 L 05/20/19 05:57 94 L 05/20/19 05:54 104 H 20 142/79 H 94 L 05/20/19 01:32 94 L Date Exam was Performed: 05/20/19 Time Exam was Performed: 12:28 - Problem List & Annotations (1) Community acquired bacterial pneumonia SNOMED Code(s): 082253165, 841130409 Code(s): J15.9 - UNSPECIFIED BACTERIAL PNEUMONIA Status: Acute Current Visit: Yes (2) COPD (chronic obstructive pulmonary disease) SNOMED Code(s): 41772138 Code(s): J44.9 - CHRONIC OBSTRUCTIVE PULMONARY DISEASE, UNSPECIFIED Status : Acute Current Visit: Yes (3) Diabetes mellitus SNOMED Code(s): 59617958 Code(s): E11.9 - TYPE 2 DIABETES MELLITUS WITHOUT COMPLICATIONS Status: Acute Current Visit: Yes (4) Peripheral neuropathy SNOMED Code(s): 186584035 Code(s): G62.9 - POLYNEUROPATHY, UNSPECIFIED Status: Acute Current Visit : Yes (5) Hypertension SNOMED Code(s): 97861981 Code(s): I10 - ESSENTIAL (PRIMARY) HYPERTENSION Status: Acute Current Visit: Yes (6) Chronic anticoagulation SNOMED Code(s): 490280834 Code(s): Z79.01 - ASSISTED (CURRENT) USE OF ANTICOAGULANTS Status: Acute Current Visit: Yes (7) Warfarin anticoagulation SNOMED Code(s): 25763280, 438026901, 324515562 Code(s): Z79.01 - PARALEGAL LEGAL SECRETARY (CURRENT) USE OF ANTICOAGULANTS Status: Acute Current Visit: Yes (8) COPD exacerbation SNOMED Code(s): 105346134 Code(s): J44.1 - CHRONIC OBSTRUCTIVE PULMONARY DISEASE W (ACUTE) EXACERBATION Status: Acute Current Visit: Yes (9) Dyslipidemia SNOMED Code(s): 788530523 Code(s): E78.5 - HYPERLIPIDEMIA, UNSPECIFIED Status: Acute Current Visit : Yes (10) Coronary artery disease SNOMED Code(s): 00819629 Code(s): I25.10 - ATHSCL HEART DISEASE OF [place] CORONARY ARTERY W/O ANG PCTRS Status: Acute Current Visit: Yes (11) Acute on chronic respiratory failure with hypoxemia SNOMED Code(s): 82056506520751980 Code(s): J96.21 - ACUTE AND CHRONIC RESPIRATORY FAILURE WITH HYPOXIA Status : Acute Current Visit: Yes (12) Intracardiac thrombus SNOMED Code(s): 464663404 Code(s): I51.3 - INTRACARDIAC THROMBOSIS, NOT ELSEWHERE CLASSIFIED Status: Acute Current Visit: Yes (13) Diastolic dysfunction SNOMED Code(s): 9618260 Code(s): I51.89 - OTHER ILL-DEFINED HEART DISEASES Status: Acute Current Visit: Yes (14) Thrombocytosis SNOMED Code(s): 1803104 Code(s): D47.3 - ESSENTIAL (HEMORRHAGIC) THROMBOCYTHEMIA Status: Acute Current Visit: Yes (15) Obstructive sleep apnea SNOMED Code(s): 17455669 Code(s): G47.33 - OBSTRUCTIVE SLEEP APNEA (ADULT) (PEDIATRIC) Status: Acute Current Visit: Yes (16) Hypomagnesemia SNOMED Code(s): 528322473 Code(s): E83.42 - HYPOMAGNESEMIA Status: Acute Current Visit: Yes - Problem List Review Problem List Initiated/Reviewed/Updated: Yes - Plan Plan:: Community acquired bacterial pneumonia vs COPD exacerbation Acute on chronic hypoxemic respiratory failure COPD (chronic obstructive pulmonary disease) Obstructive sleep apnea ED on 04/15 diagnosed with pneumonia and COPD exacerbation --> discharged on Doxycycline BID x 7 days--> minimal improvement Increased O2 requirements in past 10 days Due to worsening and suboptimal clinical improvement + sick contacts and hypoxemia will treat as both infectious and acute exacerbation process O2 sat >90% on 2.5L at rest WBC count improved Tmax 98.6 PLAN - Rocephin and Azithromycin day 2 - Procalcitonin to evaluate ATB usage - DuoNebs q4h - Medrol dose taper - CPT with neb treatments - O2 supplementation for goal satO2 > 88% - RT assess and treat - Scheduled guaifenesin Diabetes mellitus, HbA1c 5.9 Peripheral neuropathy Admission glucose 137 Glucose trend 137-355 Patient endorses compliance Home management with Levemir 30u QD PLAN - Accu checks pre-meals and HS - Continue glargine bedtime, adjust as necessary - Consistent carbohydrate diet - Hypoglycemia protocol Hypertension BP on admission 141/83, trend 136-142/75-81 Home management with amlodipine, losartan and metoprolol PLAN - Reconcile home medications - PRN Hydralazine Thrombus in apical septal wall on echocardiogram 01/2019 on warfarin for anticoagulation Mildly supratherapeutic INR INR on admission 2.71, 3.04 today likely 2/2 ATB PLAN - Pharmacy to dose warfarin - Daily INR Coronary artery disease s/p stent placement Stage 1 diastolic dysfunction Dyslipidemia Echocardiogram 01/2019 with abnormal septal motion with preserved EF at 50% Home management with aspirin, metoprolol, losartan, isosorbide mononitrate, furosemide, spironolactone, atorvastatin PLAN - Reconcile home medications - NO NEED FOR TELEMETRY PROPHYLAXIS DVT- Warfarin GI- not indicated CODE STATUS: FULL CODE DISPOSITION: Patient will remain admitted to medsurg unit on scheduled nebulizations, IV antibiotics and respiratory therapy as well as oxygen supplementation. Anticipated LOS 2-3 days. PT recommending front wheel walker and home with family From [place]. Lives at daughter's house with her, , granddaughter and great- granddaughter. Independent in ADLs, and IADLs except for transportation. PCP Dr. Ballesteros.
[2019-05-20] MEDS ORDERED: Warfarin Sliding Scale PO SCH (18:00)
[2019-05-20] MEDS: cefTRIAXone 2 GM in Sodium Chloride 0.9% 100 ML IV SCH (18:39)
[2019-05-20] MEDS: Acetaminophen/HYDROcodone 325-5 MG Tab PO SCH (18:41)
[2019-05-20] MEDS: Gabapentin 600 MG Tab PO SCH (20:12)
[2019-05-20] MEDS: Losartan 100 MG Tab PO SCH (20:12)
[2019-05-20] MEDS: Allopurinol 100 MG Tab PO SCH (20:12)
[2019-05-20] MEDS: Azithromycin 500 MG in Sodium Chloride 0.9% 250 ML IV SCH (20:16)
[2019-05-20] MEDS: Insulin Glarg,Human.Rec.Analog 100 Unit/ML SUBCUT SCH (20:16)
[2019-05-20] MEDS ORDERED: INSULIN DETEMIR 25 UNIT SQ SCH (21:00)
[2019-05-21] MEDS: Albuterol/Ipratropium 3.0-0.5 MG/3 ML Neb Soln NEB SCH ×5 (02:10→22:15)
[2019-05-21] MEDS: Acetaminophen/HYDROcodone 325-5 MG Tab PO SCH ×2 (06:07→18:02)
[2019-05-21] MEDS: guaiFENesin 600 MG Tab.ER PO SCH ×3 (08:52→20:54)
[2019-05-21] MEDS: Rosuvastatin 10 MG Tab PO SCH (08:52)
[2019-05-21] MEDS: Isosorbide Mononitrate 30 MG Tab.ER PO SCH (08:53)
[2019-05-21] MEDS: Aspirin 81 MG Tab.EC PO SCH (08:54)
[2019-05-21] MEDS: amLODIPine 10 MG Tab PO SCH (08:54)
[2019-05-21] MEDS: Furosemide 20 MG Tab PO SCH (08:54)
[2019-05-21] MEDS: Allopurinol 100 MG Tab PO SCH ×2 (08:54→20:54)
[2019-05-21] MEDS: Spironolactone 25 MG Tab PO SCH (08:54)
[2019-05-21] MEDS: Gabapentin 600 MG Tab PO SCH ×2 (08:54→20:54)
[2019-05-21] MEDS: Ezetimibe 10 MG Tab PO SCH (08:55)
--- NOTE | 2019-05-21 12:35 | PCM.PN ---
- General Info Date of Service: 05/21/19 Subjective Update: BM yesterday Slept OK Had an overall good night Functional Status: Reports: Pain Controlled, Tolerating Diet, Ambulating, Urinating, New Symptoms, Incentive Spirometry, Other (acapella ) - Review of Systems General: Reports: No Symptoms. Denies: Fever, Chills HEENT: Reports: No Symptoms. Denies: Headaches, Sore Throat Pulmonary: Reports: No Symptoms, Cough, Sputum. Denies: Shortness of Breath, Pleuritic Chest Pain, Wheezing Cardiovascular: Reports: No Symptoms. Denies: Chest Pain, Palpitations, Dyspnea on Exertion Gastrointestinal: Reports: No Symptoms. Denies: Abdominal Pain, Constipation, Diarrhea, Nausea, Vomiting Genitourinary: Reports: No Symptoms. Denies: Pain Musculoskeletal: Reports: No Symptoms Skin: Reports: No Symptoms. Denies: Cyanosis Neurological: Reports: No Symptoms. Denies: Confusion Psychiatric: Reports: No Symptoms - Patient Data Vitals - Most Recent: Last Vital Signs Temp 98.1 F 05/21/19 07:44 Pulse 96 05/21/19 07:44 Resp 16 05/21/19 07:44 BP 114/61 05/21/19 08:54 Pulse Ox 96 05/21/19 10:47 Weight - Most Recent: 160 lb I&O - Last 24 Hours: Intake & Output 05/20/19 05/21/19 05/21/19 22:59 06:59 14:59 Intake Total 1640 1450 Output Total 200 1100 Balance 1440 350 Lab Results Last 24 Hours: Laboratory Results - last 24 hr 05/19/19 05/19/19 05/20/19 Range/Units 15:05 18:58 11:39 WBC (3.98-10.04) K/mm3 RBC (3.98-5.22) M/mm3 Hgb (11.2-15.7) gm/dl Hct (34.1-44.9) % MCV (79.4-94.8) fl MCH (25.6-32.2) pg MCHC (32.2-35.5) g/dl RDW Std Deviation (36.4-46.3) fL Plt Count (182-369) K/mm3 MPV (9.4-12.3) fl Neut % (Auto) (34.0-71.1) % Lymph % (Auto) (19.3-51.7) % [place] % (Auto) (4.7-12.5) % Eos % (Auto) (0.7-5.8) Baso % (Auto) (0.1-1.2) % Neut # (Auto) (1.56-6.13) K/mm3 Lymph # (Auto) (1.18-3.74) K/mm3 [place] # (Auto) (0.24-0.36) K/mm3 Eos # (Auto) (0.04-0.36) K/mm3 Baso # (Auto) (0.01-0.08) K/mm3 Manual Slide Review PT (9.7-12.0) SECONDS INR Sodium (136-145) mEq/L Potassium (3.5-5.1) mEq/L Chloride (98-107) mEq/L Carbon Dioxide (21-32) mEq/L Anion Gap (5-15) BUN (7-18) mg/dL Creatinine (0.55-1.02) mg/dL Est Cr Clr Drug Dosing mL/min Estimated GFR (MDRD) (>60) mL/min BUN/Creatinine Ratio (14-18) Glucose (83-115) mg/dL POC Glucose 190 H (83-110) mg/dL Calcium (8.5-10.1) mg/dL Phosphorus (2.6-4.7) mg/dL Magnesium (1.8-2.4) mg/dl Procalcitonin 0.06 (<0.10) ng/mL Adenovirus (PCR) Not detected (Not Detected) B. pertussis DNA (PCR) Not detected (Not Detected) B.parapertussis DNA PCR Not detected (Not Detected) C. pneumoniae DNA (PCR) Not detected (Not Detected) Coronavirus (PCR) Not detected (Not Detected) Human Metapneumovir PCR Not detected (Not Detected) Influenza A (RT-PCR) Not detected (Not Detected) Influenza B (RT-PCR) Not detected (Not Detected) M. pneumoniae (PCR) Not detected (Not Detected) Parainfluen 1,2,3,4 PCR Not detected (Not Detected) RSV (PCR) Not detected (Not Detected) Entero/Rhino (PCR) Not detected (Not Detected) 03/08/0305/20/19 05/21/19 Range/Units 16:43 20:10 06:00 WBC (3.98-10.04) K/mm3 RBC (3.98-5.22) M/mm3 Hgb (11.2-15.7) gm/dl Hct (34.1-44.9) % MCV (79.4-94.8) fl MCH (25.6-32.2) pg MCHC (32.2-35.5) g/dl RDW Std Deviation (36.4-46.3) fL Plt Count (182-369) K/mm3 MPV (9.4-12.3) fl Neut % (Auto) (34.0-71.1) % Lymph % (Auto) (19.3-51.7) % [place] % (Auto) (4.7-12.5) % Eos % (Auto) (0.7-5.8) Baso % (Auto) (0.1-1.2) % Neut # (Auto) (1.56-6.13) K/mm3 Lymph # (Auto) (1.18-3.74) K/mm3 [place] # (Auto) (0.24-0.36) K/mm3 Eos # (Auto) (0.04-0.36) K/mm3 Baso # (Auto) (0.01-0.08) K/mm3 Manual Slide Review PT 25.0 H (9.7-12.0) SECONDS INR 2.41 Sodium (136-145) mEq/L Potassium (3.5-5.1) mEq/L Chloride (98-107) mEq/L Carbon Dioxide (21-32) mEq/L Anion Gap (5-15) BUN (7-18) mg/dL Creatinine (0.55-1.02) mg/dL Est Cr Clr Drug Dosing mL/min Estimated GFR (MDRD) (>60) mL/min BUN/Creatinine Ratio (14-18) Glucose (83-115) mg/dL POC Glucose 214 H 288 H (83-110) mg/dL Calcium (8.5-10.1) mg/dL Phosphorus (2.6-4.7) mg/dL Magnesium (1.8-2.4) mg/dl Procalcitonin (<0.10) ng/mL Adenovirus (PCR) (Not Detected) B. pertussis DNA (PCR) (Not Detected) B.parapertussis DNA PCR (Not Detected) C. pneumoniae DNA (PCR) (Not Detected) Coronavirus (PCR) (Not Detected) Human Metapneumovir PCR (Not Detected) Influenza A (RT-PCR) (Not Detected) Influenza B (RT-PCR) (Not Detected) M. pneumoniae (PCR) (Not Detected) Parainfluen 1,2,3,4 PCR (Not Detected) RSV (PCR) (Not Detected) Entero/Rhino (PCR) (Not Detected) 05/21/19 05/21/19 05/21/19 Range/Units 06:00 06:00 06:04 WBC 19.22 H (3.98-10.04) K/mm3 RBC 3.97 L (3.98-5.22) M/mm3 Hgb 12.1 (11.2-15.7) gm/dl Hct 38.3 (34.1-44.9) % MCV 96.5 H (79.4-94.8) fl MCH 30.5 (25.6-32.2) pg MCHC 31.6 L (32.2-35.5) g/dl RDW Std Deviation 47.9 H (36.4-46.3) fL Plt Count 334 (182-369) K/mm3 MPV 9.3 L (9.4-12.3) fl Neut % (Auto) 84.2 H (34.0-71.1) % Lymph % (Auto) 9.7 L (19.3-51.7) % [place] % (Auto) 5.4 (4.7-12.5) % Eos % (Auto) 0 L (0.7-5.8) Baso % (Auto) 0.1 (0.1-1.2) % Neut # (Auto) 16.19 H (1.56-6.13) K/mm3 Lymph # (Auto) 1.87 (1.18-3.74) K/mm3 [place] # (Auto) 1.03 H (0.24-0.36) K/mm3 Eos # (Auto) 0.00 L (0.04-0.36) K/mm3 Baso # (Auto) 0.02 (0.01-0.08) K/mm3 Manual Slide Review Abnormal smear PT (9.7-12.0) SECONDS INR Sodium 139 (136-145) mEq/L Potassium 4.4 (3.5-5.1) mEq/L Chloride 106 (98-107) mEq/L Carbon Dioxide 25 (21-32) mEq/L Anion Gap 12.4 (5-15) BUN 25 H (7-18) mg/dL Creatinine 0.9 (0.55-1.02) mg/dL Est Cr Clr Drug Dosing 38.79 mL/min Estimated GFR (MDRD) > 60 (>60) mL/min BUN/Creatinine Ratio 27.8 H (14-18) Glucose 128 H (83-115) mg/dL POC Glucose 114 H (83-110) mg/dL Calcium 10.0 (8.5-10.1) mg/dL Phosphorus 4.4 (2.6-4.7) mg/dL Magnesium 1.9 (1.8-2.4) mg/dl Procalcitonin (<0.10) ng/mL Adenovirus (PCR) (Not Detected) B. pertussis DNA (PCR) (Not Detected) B.parapertussis DNA PCR (Not Detected) C. pneumoniae DNA (PCR) (Not Detected) Coronavirus (PCR) (Not Detected) Human Metapneumovir PCR (Not Detected) Influenza A (RT-PCR) (Not Detected) Influenza B (RT-PCR) (Not Detected) M. pneumoniae (PCR) (Not Detected) Parainfluen 1,2,3,4 PCR (Not Detected) RSV (PCR) (Not Detected) Entero/Rhino (PCR) (Not Detected) 05/21/19 Range/Units 11:26 WBC (3.98-10.04) K/mm3 RBC (3.98-5.22) M/mm3 Hgb (11.2-15.7) gm/dl Hct (34.1-44.9) % MCV (79.4-94.8) fl MCH (25.6-32.2) pg MCHC (32.2-35.5) g/dl RDW Std Deviation (36.4-46.3) fL Plt Count (182-369) K/mm3 MPV (9.4-12.3) fl Neut % (Auto) (34.0-71.1) % Lymph % (Auto) (19.3-51.7) % [place] % (Auto) (4.7-12.5) % Eos % (Auto) (0.7-5.8) Baso % (Auto) (0.1-1.2) % Neut # (Auto) (1.56-6.13) K/mm3 Lymph # (Auto) (1.18-3.74) K/mm3 [place] # (Auto) (0.24-0.36) K/mm3 Eos # (Auto) (0.04-0.36) K/mm3 Baso # (Auto) (0.01-0.08) K/mm3 Manual Slide Review PT (9.7-12.0) SECONDS INR Sodium (136-145) mEq/L Potassium (3.5-5.1) mEq/L Chloride (98-107) mEq/L Carbon Dioxide (21-32) mEq/L Anion Gap (5-15) BUN (7-18) mg/dL Creatinine (0.55-1.02) mg/dL Est Cr Clr Drug Dosing mL/min Estimated GFR (MDRD) (>60) mL/min BUN/Creatinine Ratio (14-18) Glucose (83-115) mg/dL POC Glucose 84 (83-110) mg/dL Calcium (8.5-10.1) mg/dL Phosphorus (2.6-4.7) mg/dL Magnesium (1.8-2.4) mg/dl Procalcitonin (<0.10) ng/mL Adenovirus (PCR) (Not Detected) B. pertussis DNA (PCR) (Not Detected) B.parapertussis DNA PCR (Not Detected) C. pneumoniae DNA (PCR) (Not Detected) Coronavirus (PCR) (Not Detected) Human Metapneumovir PCR (Not Detected) Influenza A (RT-PCR) (Not Detected) Influenza B (RT-PCR) (Not Detected) M. pneumoniae (PCR) (Not Detected) Parainfluen 1,2,3,4 PCR (Not Detected) RSV (PCR) (Not Detected) Entero/Rhino (PCR) (Not Detected) Med Orders - Current: Current Medications Acetaminophen (Tylenol) 325 mg PO Q4H PRN PRN Reason: Pain (Mild 1-3)/fever Hydrocodone Bitart/Acetaminophen ([place] 325-5 Mg) 1 tab PO Q12H [facility] Last Admin: 05/21/19 06:07 Dose: 1 tab Albuterol/Ipratropium (Duoneb 3.0-0.5 Mg/3 Ml) 3 ml NEB Q6HRRT [facility] Allopurinol (Zyloprim) 100 mg PO BID [facility] Last Admin: 05/21/19 08:54 Dose: 100 mg Amlodipine Besylate (Norvasc) 10 mg PO DAILY [facility] Last Admin: 05/21/19 08:54 Dose: 10 mg Aspirin (Halfprin) 81 mg PO DAILY [facility] Last Admin: 05/21/19 08:54 Dose: 81 mg Azithromycin (Zithromax) 500 mg PO BEDTIME [facility] Cefdinir (Omnicef) 300 mg PO BID [facility] Dextrose/Water (Dextrose 50% In Water) 50 ml IVPUSH ASDIRECTED PRN PRN Reason: Hypoglycemia Ezetimibe (Zetia) 10 mg PO DAILY [facility] Last Admin: 05/21/19 08:55 Dose: 10 mg Furosemide (Lasix) 20 mg PO DAILY [facility] Last Admin: 05/21/19 08:54 Dose: 20 mg Gabapentin (Neurontin) 600 mg PO BID [facility] Last Admin: 05/21/19 08:54 Dose: 600 mg Guaifenesin (Mucinex) 600 mg PO TID [facility] Last Admin: 05/21/19 08:52 Dose: 600 mg Hydralazine HCl (Apresoline) 10 mg IVPUSH Q2H PRN PRN Reason: Hypertension Insulin Glargine (Lantus) 25 unit SUBCUT BEDTIME [facility] Last Admin: 05/20/19 20:16 Dose: 25 units Isosorbide Mononitrate (Imdur) 30 mg PO DAILY [facility] Last Admin: 05/21/19 08:53 Dose: 30 mg Losartan Potassium (Cozaar) 50 mg PO BEDTIME [facility] Last Admin: 05/20/19 20:12 Dose: 50 mg Methylprednisolone (Medrol) 16 mg PO DAILY [facility] Stop: 05/22/19 09:01 Methylprednisolone (Medrol) 12 mg PO DAILY [facility] Stop: 05/23/19 09:01 Methylprednisolone (Medrol) 8 mg PO DAILY [facility] Stop: 05/24/19 09:01 Methylprednisolone (Medrol) 4 mg PO DAILY [facility] Stop: 05/25/19 09:01 Ondansetron HCl (Zofran Odt) 4 mg PO Q6H PRN PRN Reason: nausea, able to take PO Ondansetron HCl (Zofran) 4 mg IV Q6H PRN PRN Reason: Nausea/Vomiting Rosuvastatin Calcium (Crestor) 10 mg PO DAILY [facility] Last Admin: 05/21/19 08:52 Dose: 10 mg Sodium Chloride (Saline Flush) 10 ml FLUSH ASDIRECTED PRN PRN Reason: Keep Vein Open Spironolactone (Aldactone) 25 mg PO QAM [facility] Last Admin: 05/21/19 08:54 Dose: 25 mg Warfarin Sodium (Pharmacy To Dose - Warfarin) 0 dose .XX ASDIRECTED PRN PRN Reason: RX TO DOSE COUMADIN Warfarin Sodium (Coumadin) 3 mg PO QPM [facility] Stop: 05/21/19 18:01 Discontinued Medications Albuterol (Proventil Neb Soln) 2.5 mg NEB ONETIME ONE Stop: 05/19/19 16:07 Last Admin: 05/19/19 16:21 Dose: 2.5 mg Albuterol/Ipratropium (Duoneb 3.0-0.5 Mg/3 Ml) 3 ml NEB ONETIME ONE Stop: 05/19/19 14:36 Last Admin: 05/19/19 15:02 Dose: 3 ml Albuterol/Ipratropium (Duoneb 3.0-0.5 Mg/3 Ml) 3 ml NEB Q4HRRT [facility] Last Admin: 05/21/19 10:45 Dose: 3 ml Enoxaparin Sodium (Lovenox) 40 mg SUBCUT DAILY [facility] Azithromycin 500 mg/ Sodium (Chloride) 250 mls @ 250 mls/hr IV Q24H [facility] Last Admin: 05/19/19 18:43 Dose: Not Given Ceftriaxone Sodium 2 gm/ (Sodium Chloride) 100 mls @ 200 mls/hr IV Q24H [facility] Last Admin: 05/19/19 18:42 Dose: Not Given Ceftriaxone Sodium 2 gm/ (Sodium Chloride) 100 mls @ 200 mls/hr IV Q24H [facility] Last Admin: 05/20/19 18:39 Dose: 200 mls/hr Azithromycin 500 mg/ Sodium (Chloride) 250 mls @ 250 mls/hr IV Q24H [facility] Last Admin: 05/20/19 20:16 Dose: 250 mls/hr Methylprednisolone (Medrol) 24 mg PO DAILY [facility] Stop: 05/20/19 09:01 Last Admin: 05/20/19 10:19 Dose: 24 mg Methylprednisolone (Medrol) 20 mg PO DAILY [facility] Stop: 05/21/19 09:01 Last Admin: 05/21/19 08:53 Dose: 20 mg Methylprednisolone Sodium Succinate (Solu-Medrol) 125 mg IVPUSH ONETIME ONE Stop: 05/19/19 14:37 Last Admin: 05/19/19 15:10 Dose: 125 mg Warfarin Sodium (Coumadin Sliding Scale) 0 each PO QPM DAYSI Stop: 05/19/19 21:00 Last Admin: 05/19/19 18:05 Dose: Not Given Warfarin Sodium (Coumadin Sliding Scale) 0 each PO QPM [facility] Stop: 05/20/19 18:01 Last Admin: 05/20/19 18:56 Dose: Not Given - Exam Quality Assessment: Supplemental Oxygen (2L), DVT Prophylaxis General: Alert, Oriented, Cooperative, No Acute Distress HEENT: Pupils Equal, Pupils Reactive, Mucous Membr. Moist/[place] Neck: Supple, Trachea Midline Lungs: Normal Respiratory Effort, Decreased Breath Sounds, Crackles Cardiovascular: Regular Rate, Regular Rhythm GI/Abdominal Exam: Normal Bowel Sounds, Soft, Non-Tender, No Distention (Female) Exam: Deferred Back Exam: Normal Inspection, Full Range of Motion Extremities: Normal Inspection, Normal Range of Motion, Non-Tender, No Pedal Edema, Normal Capillary Refill Peripheral Pulses: 2+: Radial (L), Radial (R), Dorsalis Pedis (L), Dorsalis Pedis (R) Skin: Warm, Dry, Intact Neurological: No New Focal Deficit Psy/Mental Status: Alert, Normal Affect, Normal Mood Sepsis Event Note - Evaluation Sepsis Screening Result: No Definite Risk - Focused Exam Vital Signs: Vital Signs Temp Pulse Resp BP Pulse Ox Pulse Ox 05/21/19 10:47 96 05/21/19 08:54 114/61 05/21/19 08:53 114/61 05/21/19 07:44 98.1 F 96 16 97/43 L 95 05/21/19 06:29 61 L 05/21/19 06:06 97.9 F 82 20 121/76 93 L 05/21/19 02:10 94 L Date Exam was Performed: 05/21/19 Time Exam was Performed: 13:46 - Problem List & Annotations (1) Acute on chronic respiratory failure with hypoxemia SNOMED Code(s): 57867986320796737 Code(s): J96.21 - ACUTE AND CHRONIC RESPIRATORY FAILURE WITH HYPOXIA Status : Acute Current Visit: Yes (2) COPD (chronic obstructive pulmonary disease) SNOMED Code(s): 13805630 Code(s): J44.9 - CHRONIC OBSTRUCTIVE PULMONARY DISEASE, UNSPECIFIED Status : Acute Current Visit: Yes (3) COPD exacerbation SNOMED Code(s): 823013819 Code(s): J44.1 - CHRONIC OBSTRUCTIVE PULMONARY DISEASE W (ACUTE) EXACERBATION Status: Acute Current Visit: Yes (4) Chronic anticoagulation SNOMED Code(s): 606988406 Code(s): Z79.01 - CEMENT SACK BREAKER (CURRENT) USE OF ANTICOAGULANTS Status: Acute Current Visit: Yes (5) Community acquired bacterial pneumonia SNOMED Code(s): 856429998, 119187346 Code(s): J15.9 - UNSPECIFIED BACTERIAL PNEUMONIA Status: Acute Current Visit: Yes (6) Coronary artery disease SNOMED Code(s): 38515364 Code(s): I25.10 - ATHSCL HEART DISEASE OF [place] CORONARY ARTERY W/O ANG PCTRS Status: Acute Current Visit: Yes (7) Diabetes mellitus SNOMED Code(s): 89586251 Code(s): E11.9 - TYPE 2 DIABETES MELLITUS WITHOUT COMPLICATIONS Status: Acute Current Visit: Yes (8) Diastolic dysfunction SNOMED Code(s): 0319235 Code(s): I51.89 - OTHER ILL-DEFINED HEART DISEASES Status: Acute Current Visit: Yes (9) Dyslipidemia SNOMED Code(s): 706461706 Code(s): E78.5 - HYPERLIPIDEMIA, UNSPECIFIED Status: Acute Current Visit : Yes (10) Hypertension SNOMED Code(s): 75003168 Code(s): I10 - ESSENTIAL (PRIMARY) HYPERTENSION Status: Acute Current Visit: Yes (11) Hypomagnesemia SNOMED Code(s): 781371650 Code(s): E83.42 - HYPOMAGNESEMIA Status: Acute Current Visit: Yes (12) Intracardiac thrombus SNOMED Code(s): 612572497 Code(s): I51.3 - INTRACARDIAC THROMBOSIS, NOT ELSEWHERE CLASSIFIED Status: Acute Current Visit: Yes (13) Obstructive sleep apnea SNOMED Code(s): 98770533 Code(s): G47.33 - OBSTRUCTIVE SLEEP APNEA (ADULT) (PEDIATRIC) Status: Acute Current Visit: Yes (14) Peripheral neuropathy SNOMED Code(s): 191368924 Code(s): G62.9 - POLYNEUROPATHY, UNSPECIFIED Status: Acute Current Visit : Yes (15) Thrombocytosis SNOMED Code(s): 1430418 Code(s): D47.3 - ESSENTIAL (HEMORRHAGIC) THROMBOCYTHEMIA Status: Acute Current Visit: Yes (16) Warfarin anticoagulation SNOMED Code(s): 94014591, 017926487, 050629963 Code(s): Z79.01 - CARE HOME (CURRENT) USE OF ANTICOAGULANTS Status: Acute Current Visit: Yes - Problem List Review Problem List Initiated/Reviewed/Updated: Yes - Plan Plan:: Community acquired bacterial pneumonia vs COPD exacerbation Acute on chronic hypoxemic respiratory failure COPD (chronic obstructive pulmonary disease) Obstructive sleep apnea ED on 04/15 diagnosed with pneumonia and COPD exacerbation --> discharged on Doxycycline BID x 7 days--> minimal improvement Increased O2 requirements in past 10 days Due to worsening and suboptimal clinical improvement + sick contacts and hypoxemia will treat as both infectious and acute exacerbation process O2 sat >90% on 2.5L at rest WBC count elevated 2/2 steroids Tmax 98.6 Procalcitonin 0.06 Negative RVP PLAN - ANX day 4 - change to PO azithromycin and cefdinir - Change DuoNebs q8h - Medrol dose taper - CPT with neb treatments - O2 supplementation for goal satO2 > 88% - RT assess and treat - Scheduled guaifenesin Diabetes mellitus, HbA1c 5.9 Peripheral neuropathy Admission glucose 137 Glucose trend 137-355 Patient endorses compliance Home management with Levemir 25u QD PLAN - Accu checks pre-meals and HS - Continue glargine bedtime, adjust as necessary - Consistent carbohydrate diet - Hypoglycemia protocol Hypertension BP on admission 141/83, trend 136-142/75-81 Home management with amlodipine, losartan and metoprolol PLAN - Reconcile home medications - PRN Hydralazine Thrombus in apical septal wall on echocardiogram 01/2019 on warfarin for anticoagulation Mildly supratherapeutic INR INR on admission 2.71, 2.41 today PLAN - Pharmacy to dose warfarin - Daily INR Coronary artery disease s/p stent placement Stage 1 diastolic dysfunction Dyslipidemia Echocardiogram 01/2019 with abnormal septal motion with preserved EF at 50% Home management with aspirin, metoprolol, losartan, isosorbide mononitrate, furosemide, spironolactone, atorvastatin PLAN - Reconcile home medications - NO NEED FOR TELEMETRY PROPHYLAXIS DVT- Warfarin GI- not indicated CODE STATUS: FULL CODE DISPOSITION: Patient will remain admitted to medsurg unit on scheduled nebulizations, IV antibiotics and respiratory therapy as well as oxygen supplementation. Anticipated LOS 2-3 days. PT recommending front wheel walker and home with family From [place]. Lives at daughter's house with her, , granddaughter and great- granddaughter. Independent in ADLs, and IADLs except for transportation. PCP Dr. Ballesteros.
[2019-05-21] MEDS ORDERED: Warfarin 3 MG Tab PO SCH (18:00)
[2019-05-21] MEDS: Cefdinir 300 MG Cap PO SCH (20:53)
[2019-05-21] MEDS: Azithromycin 250 MG Tab PO SCH (20:54)
[2019-05-21] MEDS: Losartan 100 MG Tab PO SCH (20:54)
[2019-05-21] MEDS: Insulin Glarg,Human.Rec.Analog 100 Unit/ML SUBCUT SCH (20:59)
[2019-05-22] MEDS: Albuterol/Ipratropium 3.0-0.5 MG/3 ML Neb Soln NEB SCH ×4 (03:20→21:49)
[2019-05-22] MEDS: Acetaminophen/HYDROcodone 325-5 MG Tab PO SCH ×2 (06:48→18:02)
[2019-05-22] MEDS: Allopurinol 100 MG Tab PO SCH ×2 (08:44→21:21)
[2019-05-22] MEDS: Cefdinir 300 MG Cap PO SCH ×2 (08:44→21:21)
[2019-05-22] MEDS: amLODIPine 10 MG Tab PO SCH (08:44)
[2019-05-22] MEDS: Aspirin 81 MG Tab.EC PO SCH (08:44)
[2019-05-22] MEDS: Spironolactone 25 MG Tab PO SCH (08:44)
[2019-05-22] MEDS: Ezetimibe 10 MG Tab PO SCH (08:44)
[2019-05-22] MEDS: Furosemide 20 MG Tab PO SCH (08:44)
[2019-05-22] MEDS: Gabapentin 600 MG Tab PO SCH ×2 (08:45→21:24)
[2019-05-22] MEDS: Rosuvastatin 10 MG Tab PO SCH (08:45)
[2019-05-22] MEDS: Isosorbide Mononitrate 30 MG Tab.ER PO SCH (08:45)
[2019-05-22] MEDS: guaiFENesin 600 MG Tab.ER PO SCH ×3 (08:45→21:20)
[2019-05-22] MEDS: Benzonatate 100 MG Cap PO SCH ×2 (14:28→21:24)
--- NOTE | 2019-05-22 18:35 | PCM.PN ---
- General Info Date of Service: 05/22/19 Subjective Update: BM today Slept OK Tolerating diet Ambulating with walker No current complaints - Patient Data Vitals - Most Recent: Last Vital Signs Temp 97.9 F 05/22/19 14:27 Pulse 91 05/22/19 14:27 Resp 20 05/22/19 14:27 BP 103/49 L 05/22/19 14:28 Pulse Ox 94 L 05/22/19 15:06 Weight - Most Recent: 73.074 kg - Exam Quality Assessment: Supplemental Oxygen General: Alert, Oriented, Cooperative, No Acute Distress HEENT: Pupils Equal, Pupils Reactive, EOMI, Mucous Membr. Moist/[place] Neck: Supple, Trachea Midline, No JVD, No Thyromegaly, +2 Carotid Pulse wo Bruit. No: Lymphadenopathy Lungs: Normal Respiratory Effort, Crackles. No: Rales, Rhonchi, Rub, Stridor, Wheezing Cardiovascular: Regular Rate, Regular Rhythm. No: Murmurs, Gallops, Rubs GI/Abdominal Exam: Normal Bowel Sounds, Soft, Non-Tender, No Organomegaly. No: Distended, Guarding, Rigid, Rebound Back Exam: Normal Inspection. No: CVA Tenderness (L), CVA Tenderness (R), Paraspinal Tenderness, Vertebral Tenderness Extremities: Normal Inspection, Normal Range of Motion, Non-Tender, No Pedal Edema, Normal Capillary Refill Skin: Warm, Dry Neurological: No New Focal Deficit Psy/Mental Status: Alert, Normal Affect, Normal Mood Sepsis Event Note - Evaluation Sepsis Screening Result: No Definite Risk - Focused Exam Vital Signs: Vital Signs Temp Pulse Resp BP Pulse Ox Pulse Ox 05/22/19 15:06 94 L 05/22/19 14:28 103/49 L 05/22/19 14:27 97.9 F 91 20 95 05/22/19 10:03 95 05/22/19 08:45 104/53 L 05/22/19 08:44 104/53 L 05/22/19 08:03 97.7 F 81 16 104/53 L 94 L Date Exam was Performed: 05/22/19 Time Exam was Performed: 18:35 - Problem List & Annotations (1) Community acquired bacterial pneumonia SNOMED Code(s): 055261185, 087101299 Code(s): J15.9 - UNSPECIFIED BACTERIAL PNEUMONIA Status: Acute Current Visit: Yes (2) COPD (chronic obstructive pulmonary disease) SNOMED Code(s): 10177683 Code(s): J44.9 - CHRONIC OBSTRUCTIVE PULMONARY DISEASE, UNSPECIFIED Status : Acute Current Visit: Yes (3) Diabetes mellitus SNOMED Code(s): 54745408 Code(s): E11.9 - TYPE 2 DIABETES MELLITUS WITHOUT COMPLICATIONS Status: Acute Current Visit: Yes (4) Peripheral neuropathy SNOMED Code(s): 342599408 Code(s): G62.9 - POLYNEUROPATHY, UNSPECIFIED Status: Acute Current Visit : Yes (5) Hypertension SNOMED Code(s): 96867234 Code(s): I10 - ESSENTIAL (PRIMARY) HYPERTENSION Status: Acute Current Visit: Yes (6) Chronic anticoagulation SNOMED Code(s): 346534219 Code(s): Z79.01 - HALF-WAY (CURRENT) USE OF ANTICOAGULANTS Status: Acute Current Visit: Yes (7) Warfarin anticoagulation SNOMED Code(s): 95172385, 942902584, 602117516 Code(s): Z79.01 - BEAM DYER RECESSED VAT (CURRENT) USE OF ANTICOAGULANTS Status: Acute Current Visit: Yes (8) COPD exacerbation SNOMED Code(s): 443451315 Code(s): J44.1 - CHRONIC OBSTRUCTIVE PULMONARY DISEASE W (ACUTE) EXACERBATION Status: Acute Current Visit: Yes (9) Dyslipidemia SNOMED Code(s): 500783631 Code(s): E78.5 - HYPERLIPIDEMIA, UNSPECIFIED Status: Acute Current Visit : Yes (10) Coronary artery disease SNOMED Code(s): 53999074 Code(s): I25.10 - ATHSCL HEART DISEASE OF [place] CORONARY ARTERY W/O ANG PCTRS Status: Acute Current Visit: Yes (11) Acute on chronic respiratory failure with hypoxemia SNOMED Code(s): 30812228289420964 Code(s): J96.21 - ACUTE AND CHRONIC RESPIRATORY FAILURE WITH HYPOXIA Status : Acute Current Visit: Yes (12) Intracardiac thrombus SNOMED Code(s): 256611901 Code(s): I51.3 - INTRACARDIAC THROMBOSIS, NOT ELSEWHERE CLASSIFIED Status: Acute Current Visit: Yes (13) Diastolic dysfunction SNOMED Code(s): 3168147 Code(s): I51.89 - OTHER ILL-DEFINED HEART DISEASES Status: Acute Current Visit: Yes (14) Thrombocytosis SNOMED Code(s): 6875484 Code(s): D47.3 - ESSENTIAL (HEMORRHAGIC) THROMBOCYTHEMIA Status: Acute Current Visit: Yes (15) Obstructive sleep apnea SNOMED Code(s): 79058722 Code(s): G47.33 - OBSTRUCTIVE SLEEP APNEA (ADULT) (PEDIATRIC) Status: Acute Current Visit: Yes (16) Hypomagnesemia SNOMED Code(s): 765174462 Code(s): E83.42 - HYPOMAGNESEMIA Status: Acute Current Visit: Yes - Problem List Review Problem List Initiated/Reviewed/Updated: Yes - Plan Plan:: Community acquired bacterial pneumonia vs COPD exacerbation Acute on chronic hypoxemic respiratory failure COPD (chronic obstructive pulmonary disease) Obstructive sleep apnea ED on 04/15 diagnosed with pneumonia and COPD exacerbation --> d/c Doxycycline BID x 7 days--> minimal improvement + increased O2 requirements past 10days Due to worsening and suboptimal clinical improvement + sick contacts and hypoxemia will treat as both infectious and acute exacerbation process O2 sat >93% on 2L at rest WBC count elevated but improving Tmax 98.6 Procalcitonin 0.06 Negative RVP PLAN - Antibiotic day 4 - DuoNebs q8h - Continue Medrol dose taper - CPT with neb treatments - O2 supplementation for goal satO2 > 88% - RT assess and treat - Scheduled des Diabetes mellitus, HbA1c 5.9 Peripheral neuropathy Admission glucose 137 Glucose trend 84-211 Patient endorses compliance Home management with Levemir 25u QD PLAN - Accu checks pre-meals and HS - Continue glargine bedtime, adjust as necessary - Consistent carbohydrate diet - Hypoglycemia protocol Hypertension BP on admission 141/83, trend 97-132/44-76 Home management with amlodipine, losartan and metoprolol PLAN - Reconcile home medications - PRN Hydralazine Thrombus in apical septal wall on echocardiogram 01/2019 on warfarin for anticoagulation Mildly supratherapeutic INR INR on admission 2.71-> 2.41 -> 2.0 today PLAN - Pharmacy to dose warfarin - Daily INR Coronary artery disease s/p stent placement Stage 1 diastolic dysfunction Dyslipidemia Echocardiogram 01/2019 with abnormal septal motion with preserved EF at 50% Home management with aspirin, metoprolol, losartan, isosorbide mononitrate, furosemide, spironolactone, atorvastatin PLAN - Continue home medications - NO NEED FOR TELEMETRY PROPHYLAXIS DVT- Warfarin GI- not indicated CODE STATUS: FULL CODE DISPOSITION: Patient will remain admitted to medsurg unit on PO antibiotics to complete one more day and scheduled nebulizations Discharge likely in AM PT recommending front wheel walker and home with family From [place]. Lives at daughter's house with her, , granddaughter and great- granddaughter. Independent in ADLs, and IADLs except for transportation. PCP Dr. Ballesteros.
[2019-05-22] MEDS: Azithromycin 250 MG Tab PO SCH (21:20)
[2019-05-22] MEDS: Losartan 100 MG Tab PO SCH (21:20)
[2019-05-22] MEDS: Insulin Glarg,Human.Rec.Analog 100 Unit/ML SUBCUT SCH (21:34)
[2019-05-23] MEDS: Albuterol/Ipratropium 3.0-0.5 MG/3 ML Neb Soln NEB SCH ×4 (04:11→20:58)
[2019-05-23] MEDS: Acetaminophen/HYDROcodone 325-5 MG Tab PO SCH ×2 (06:50→18:12)
[2019-05-23] MEDS: Cefdinir 300 MG Cap PO SCH ×2 (08:06→21:51)
[2019-05-23] MEDS: Ezetimibe 10 MG Tab PO SCH (08:06)
[2019-05-23] MEDS: Spironolactone 25 MG Tab PO SCH (08:07)
[2019-05-23] MEDS: Gabapentin 600 MG Tab PO SCH ×2 (08:07→21:50)
[2019-05-23] MEDS: amLODIPine 10 MG Tab PO SCH (08:07)
[2019-05-23] MEDS: Benzonatate 100 MG Cap PO SCH ×3 (08:07→21:52)
[2019-05-23] MEDS: Allopurinol 100 MG Tab PO SCH ×2 (08:07→21:51)
[2019-05-23] MEDS: Aspirin 81 MG Tab.EC PO SCH (08:07)
[2019-05-23] MEDS: Furosemide 20 MG Tab PO SCH (08:07)
[2019-05-23] MEDS: Isosorbide Mononitrate 30 MG Tab.ER PO SCH (08:08)
[2019-05-23] MEDS: guaiFENesin 600 MG Tab.ER PO SCH ×3 (08:08→21:52)
[2019-05-23] MEDS: Rosuvastatin 10 MG Tab PO SCH (08:08)
[2019-05-23] MEDS ORDERED: Bismuth Subsalicylate 262 MG/15 ML Susp 236 ML Bottle PO PRN (13:48)
--- NOTE | 2019-05-23 20:50 | PCM.PN ---
- General Info Date of Service: 05/23/19 Subjective Update: BM x2 today Slept OK Tolerating diet Ambulating with walker Has some reflux symptoms that made her cough last night SOB improved Feeling a lot better - Patient Data Vitals - Most Recent: Last Vital Signs Temp 97.5 F 05/23/19 15:00 Pulse 88 05/23/19 15:00 Resp 16 05/23/19 15:00 BP 124/73 05/23/19 15:00 Pulse Ox 96 05/23/19 16:28 Weight - Most Recent: 72.529 kg - Exam Quality Assessment: Supplemental Oxygen General: Alert, Oriented, Cooperative, No Acute Distress HEENT: Pupils Equal, EOMI, Mucous Membr. Moist/[place] Neck: Supple, Trachea Midline, No JVD, No Thyromegaly, +2 Carotid Pulse wo Bruit. No: Lymphadenopathy Lungs: Normal Respiratory Effort, Crackles. No: Clear to Auscultation, Rales, Rhonchi, Rub, Stridor, Wheezing Cardiovascular: Regular Rate, Regular Rhythm. No: Murmurs, Gallops, Rubs GI/Abdominal Exam: Normal Bowel Sounds, Soft, Non-Tender, No Organomegaly, No Distention. No: Guarding, Rigid, Rebound Back Exam: Normal Inspection, Paraspinal Tenderness. No: CVA Tenderness (L), CVA Tenderness (R), Vertebral Tenderness Extremities: Normal Inspection, Normal Range of Motion, Non-Tender, No Pedal Edema, Slow Capillary Refill Skin: Warm, Dry Neurological: No New Focal Deficit Psy/Mental Status: Normal Affect, Normal Mood Sepsis Event Note - Evaluation Sepsis Screening Result: No Definite Risk - Focused Exam Vital Signs: Vital Signs Temp Pulse Resp BP Pulse Ox Pulse Ox 05/23/19 16:28 96 05/23/19 15:00 97.5 F 88 16 124/73 97 Date Exam was Performed: 05/23/19 Time Exam was Performed: 20:45 - Problem List & Annotations (1) Community acquired bacterial pneumonia SNOMED Code(s): 905671870, 936953663 Code(s): J15.9 - UNSPECIFIED BACTERIAL PNEUMONIA Status: Acute Current Visit: Yes (2) COPD (chronic obstructive pulmonary disease) SNOMED Code(s): 27083392 Code(s): J44.9 - CHRONIC OBSTRUCTIVE PULMONARY DISEASE, UNSPECIFIED Status : Acute Current Visit: Yes (3) Diabetes mellitus SNOMED Code(s): 81685995 Code(s): E11.9 - TYPE 2 DIABETES MELLITUS WITHOUT COMPLICATIONS Status: Acute Current Visit: Yes (4) Peripheral neuropathy SNOMED Code(s): 049225964 Code(s): G62.9 - POLYNEUROPATHY, UNSPECIFIED Status: Acute Current Visit : Yes (5) Hypertension SNOMED Code(s): 55829245 Code(s): I10 - ESSENTIAL (PRIMARY) HYPERTENSION Status: Acute Current Visit: Yes (6) Chronic anticoagulation SNOMED Code(s): 970426675 Code(s): Z79.01 - CONSULTANT DIETITIAN (CURRENT) USE OF ANTICOAGULANTS Status: Acute Current Visit: Yes (7) Warfarin anticoagulation SNOMED Code(s): 07701015, 324317602, 266940548 Code(s): Z79.01 - NURSING HOME (CURRENT) USE OF ANTICOAGULANTS Status: Acute Current Visit: Yes (8) COPD exacerbation SNOMED Code(s): 006841599 Code(s): J44.1 - CHRONIC OBSTRUCTIVE PULMONARY DISEASE W (ACUTE) EXACERBATION Status: Acute Current Visit: Yes (9) Dyslipidemia SNOMED Code(s): 673511575 Code(s): E78.5 - HYPERLIPIDEMIA, UNSPECIFIED Status: Acute Current Visit : Yes (10) Coronary artery disease SNOMED Code(s): 85633814 Code(s): I25.10 - ATHSCL HEART DISEASE OF [place] CORONARY ARTERY W/O ANG PCTRS Status: Acute Current Visit: Yes (11) Acute on chronic respiratory failure with hypoxemia SNOMED Code(s): 00523857736641859 Code(s): J96.21 - ACUTE AND CHRONIC RESPIRATORY FAILURE WITH HYPOXIA Status : Acute Current Visit: Yes (12) Intracardiac thrombus SNOMED Code(s): 900996516 Code(s): I51.3 - INTRACARDIAC THROMBOSIS, NOT ELSEWHERE CLASSIFIED Status: Acute Current Visit: Yes (13) Diastolic dysfunction SNOMED Code(s): 2362205 Code(s): I51.89 - OTHER ILL-DEFINED HEART DISEASES Status: Acute Current Visit: Yes (14) Thrombocytosis SNOMED Code(s): 5289334 Code(s): D47.3 - ESSENTIAL (HEMORRHAGIC) THROMBOCYTHEMIA Status: Acute Current Visit: Yes (15) Obstructive sleep apnea SNOMED Code(s): 36803974 Code(s): G47.33 - OBSTRUCTIVE SLEEP APNEA (ADULT) (PEDIATRIC) Status: Acute Current Visit: Yes (16) Hypomagnesemia SNOMED Code(s): 386595262 Code(s): E83.42 - HYPOMAGNESEMIA Status: Acute Current Visit: Yes - Problem List Review Problem List Initiated/Reviewed/Updated: Yes - Plan Plan:: Community acquired bacterial pneumonia vs COPD exacerbation Acute on chronic hypoxemic respiratory failure COPD (chronic obstructive pulmonary disease) Obstructive sleep apnea ED on 04/15 diagnosed with pneumonia and COPD exacerbation --> d/c Doxycycline BID x 7 days--> minimal improvement + increased O2 requirements past 10days Due to worsening and suboptimal clinical improvement + sick contacts and hypoxemia will treat as both infectious and acute exacerbation process O2 sat >93% on 2L at rest WBC count trending down from 17.49-->14.22 Tmax 98.1 Procalcitonin 0.06 Negative RVP PLAN - Antibiotic day 5 - DuoNebs q8h - Continue Medrol dose taper - CPT with neb treatments and incentive spirometry - O2 supplementation for goal satO2 > 88% - RT assess and treat - Scheduled guaifenesin - Walk with RT to evaluate oxygen need prior to discharge Diabetes mellitus, HbA1c 5.9 Peripheral neuropathy Admission glucose 137 Glucose trend 90-234 Patient endorses compliance Home management with Levemir 25u QD PLAN - Accu checks pre-meals and HS - Continue glargine bedtime, adjust as necessary - Consistent carbohydrate diet - Hypoglycemia protocol Hypertension BP on admission 141/83, trend 103-144/47-53 Home management with amlodipine, losartan and metoprolol PLAN - Reconcile home medications - PRN Hydralazine Thrombus in apical septal wall on echocardiogram 01/2019 on warfarin for anticoagulation Mildly subtherapeutic INR INR on admission 2.71-> 2.41 -> 2.0-> 1.88 PLAN - Pharmacy to dose warfarin - Daily INR Coronary artery disease s/p stent placement Stage 1 diastolic dysfunction Dyslipidemia Echocardiogram 01/2019 with abnormal septal motion with preserved EF at 50% Home management with aspirin, metoprolol, losartan, isosorbide mononitrate, furosemide, spironolactone, atorvastatin PLAN - Continue home medications - NO NEED FOR TELEMETRY PROPHYLAXIS DVT- Warfarin GI- not indicated CODE STATUS: FULL CODE DISPOSITION: Patient will remain admitted to medsurg unit fro repeat labs in AM to make sure kidney function is not worsening, urine output subjectively preserved Discharge likely in AM PT recommending front wheel walker and home with family From [place]. Lives at daughter's house with her, , granddaughter and great- granddaughter. Independent in ADLs, and IADLs except for transportation. PCP Dr. Ballesteros.
[2019-05-23] MEDS ORDERED: Famotidine 20 MG Tab PO SCH (21:00)
[2019-05-23] MEDS: Azithromycin 250 MG Tab PO SCH (21:50)
[2019-05-23] MEDS: Losartan 100 MG Tab PO SCH (21:52)
[2019-05-23] MEDS: Insulin Glarg,Human.Rec.Analog 100 Unit/ML SUBCUT SCH (21:53)
[2019-05-24] MEDS: Albuterol/Ipratropium 3.0-0.5 MG/3 ML Neb Soln NEB SCH ×3 (03:31→14:09)
[2019-05-24] MEDS: Acetaminophen/HYDROcodone 325-5 MG Tab PO SCH (06:08)
[2019-05-24] MEDS: amLODIPine 10 MG Tab PO SCH (08:22)
[2019-05-24] MEDS: Furosemide 20 MG Tab PO SCH (08:22)
[2019-05-24] MEDS: Gabapentin 600 MG Tab PO SCH (08:23)
[2019-05-24] MEDS: Rosuvastatin 10 MG Tab PO SCH (08:23)
[2019-05-24] MEDS: Allopurinol 100 MG Tab PO SCH (08:23)
[2019-05-24] MEDS: Isosorbide Mononitrate 30 MG Tab.ER PO SCH (08:23)
[2019-05-24] MEDS: Benzonatate 100 MG Cap PO SCH ×2 (08:23→14:54)
[2019-05-24] MEDS: guaiFENesin 600 MG Tab.ER PO SCH ×2 (08:23→14:54)
[2019-05-24] MEDS: Spironolactone 25 MG Tab PO SCH (08:23)
[2019-05-24] MEDS: Aspirin 81 MG Tab.EC PO SCH (08:23)
[2019-05-24] MEDS: Ezetimibe 10 MG Tab PO SCH (08:23)
[2019-05-24] MEDS: Cefdinir 300 MG Cap PO SCH (08:24)
[2019-05-24 09:10] VITALS: BP 106/54; PULSE 84
--- NOTE | 2019-05-24 11:36 | PCM.DCSUM1 ---
Discharge Summary - Hospital Course HPI Initial Comments: This is a 73 year old female with past medical history of COPD, HTN and diabetes who comes to the ED complaining of worsening shortness of breath for approximately 3 weeks. As per patient she was in usual state of health up to 6 weeks ago when she was diagnosed with pneumonia, she was diagnosed in the ED and was sent home with 1 antibiotic to take for 1.5 weeks. She completed treatment and was "healthy or fine" for 1 day. Afterwards she started having increased coughing, sneezing, nasal congestion and productive cough of clear sputum and eventually turned green 4 days later. She started taking OTC medications for cold and sinus which she took for approximately 5 days. Her sinuses " cleared up" but she continued to have coughing episodes and runny nose associated with MARTINES. Once she noticed she was unable to ambulate a couple of feet without getting short of breath and O2 requirements during increased to 2LPM constantly she decided to come in for further evaluation Endorses headaches, pleuritic chest pain, productive green cough, chills, unquantified fever. Did get flu shot about 4 months ago States daughter, granddaughter where diagnosed with pneumonia. Diagnosis: Stroke: No - Discharge Data Discharge Date: 05/24/19 (Admit date: 05/19/19) Discharge Disposition: Home, Self-Care 01 Condition: Good - Referral to Home Health Primary Care Physician: Man Corbett MD - Discharge Diagnosis/Problem(s) (1) Acute on chronic respiratory failure with hypoxemia SNOMED Code(s): 17011275102990624 ICD Code: J96.21 - ACUTE AND CHRONIC RESPIRATORY FAILURE WITH HYPOXIA Status: Acute Current Visit: Yes (2) COPD (chronic obstructive pulmonary disease) SNOMED Code(s): 40040457 ICD Code: J44.9 - CHRONIC OBSTRUCTIVE PULMONARY DISEASE, UNSPECIFIED Status : Acute Current Visit: Yes (3) COPD exacerbation SNOMED Code(s): 819955296 ICD Code: J44.1 - CHRONIC OBSTRUCTIVE PULMONARY DISEASE W (ACUTE) EXACERBATION Status: Acute Current Visit: Yes (4) Chronic anticoagulation SNOMED Code(s): 355186233 ICD Code: Z79.01 - GROUP HOME (CURRENT) USE OF ANTICOAGULANTS Status: Acute Current Visit: Yes (5) Community acquired bacterial pneumonia SNOMED Code(s): 027897763, 109785454 ICD Code: J15.9 - UNSPECIFIED BACTERIAL PNEUMONIA Status: Acute Current Visit: Yes (6) Coronary artery disease SNOMED Code(s): 81253587 ICD Code: I25.10 - ATHSCL HEART DISEASE OF [place] CORONARY ARTERY W/O ANG PCTRS Status: Acute Current Visit: Yes (7) Diabetes mellitus SNOMED Code(s): 28503330 ICD Code: E11.9 - TYPE 2 DIABETES MELLITUS WITHOUT COMPLICATIONS Status: Acute Current Visit: Yes (8) Diastolic dysfunction SNOMED Code(s): 3320273 ICD Code: I51.89 - OTHER ILL-DEFINED HEART DISEASES Status: Acute Current Visit: Yes (9) Dyslipidemia SNOMED Code(s): 516355409 ICD Code: E78.5 - HYPERLIPIDEMIA, UNSPECIFIED Status: Acute Current Visit : Yes (10) Hypertension SNOMED Code(s): 19410352 ICD Code: I10 - ESSENTIAL (PRIMARY) HYPERTENSION Status: Acute Current Visit: Yes (11) Hypomagnesemia SNOMED Code(s): 966069354 ICD Code: E83.42 - HYPOMAGNESEMIA Status: Acute Current Visit: Yes (12) Intracardiac thrombus SNOMED Code(s): 883181175 ICD Code: I51.3 - INTRACARDIAC THROMBOSIS, NOT ELSEWHERE CLASSIFIED Status : Acute Current Visit: Yes (13) Obstructive sleep apnea SNOMED Code(s): 44820117 ICD Code: G47.33 - OBSTRUCTIVE SLEEP APNEA (ADULT) (PEDIATRIC) Status: Acute Current Visit: Yes (14) Peripheral neuropathy SNOMED Code(s): 939494865 ICD Code: G62.9 - POLYNEUROPATHY, UNSPECIFIED Status: Acute Current Visit : Yes (15) Thrombocytosis SNOMED Code(s): 3281035 ICD Code: D47.3 - ESSENTIAL (HEMORRHAGIC) THROMBOCYTHEMIA Status: Acute Current Visit: Yes (16) Warfarin anticoagulation SNOMED Code(s): 88200766, 213570274, 009916499 ICD Code: Z79.01 - GROUP HOME (CURRENT) USE OF ANTICOAGULANTS Status: Acute Current Visit: Yes - Patient Summary/Data Consults: Consultations 05/19/19 17:04 OT Evaluation and Treatment [CONS] Routine PT Evaluation and Treatment [CONS] Routine Labs Pending at D/C: Strep pneumoiae Procalcitonin Recommended Follow-up Testing/Procedures: Follow-up with primary care provider within 5-7 days of discharge, sooner if needed. Hospital Course: Traci was admitted to the hospital due to chronic hypoxemic respiratory failure and prior pneumonia versus COPD exacerbation. She does have underlying COPD disease and is on home oxygen, although she does admit that she tends to titrate this and will only use it when she feels like she needs it. She had been in the ED on 130 and diagnosed with pneumonia and COPD exacerbation. She was given days of twice daily doxycycline and had minimal improvement. She was noted to require more oxygen and had an elevated white count. She was started on IV Rocephin and azithromycin and transition to p.o. cefdinir and azithromycin. She completed 5 days worth of treatment and this was discontinued. Infectious work-up was otherwise negative. She was given a Medrol dose taper and will finish this tomorrow, 05/25/2019. She was started on Acapella and incentive spirometry and was told to continue this until her symptoms resolve. She was started on scheduled Mucinex and Tessalon Perles. She is qualified for oxygen at 2 L at all times and 4 L with activity. Is have a history of diabetes and A1c was found to be 5.9. Pharmacy did dose her home Coumadin and she was found to be appropriate at her home level. PT/OT did see her and recommended a pediatric walker due to her short stature. They are recommending home with family. She will be discharged on 5 more days of 3 times daily p.o. Mucinex and Tessalon Perles for cough and congestion. Also her home medications were otherwise continued. She was instructed to follow-up with her primary care provider within 5 to 7 days of discharge. She was discharged home today. Community acquired bacterial pneumonia vs COPD exacerbation Acute on chronic hypoxemic respiratory failure COPD (chronic obstructive pulmonary disease) Obstructive sleep apnea ED on 04/15 diagnosed with pneumonia and COPD exacerbation --> d/c Doxycycline BID x 7 days--> minimal improvement + increased O2 requirements past 10days Due to worsening and suboptimal clinical improvement + sick contacts and hypoxemia will treat as both infectious and acute exacerbation process O2 sat >93% on 2L at rest WBC count trending down from 17.49-->14.22 Tmax 98.1 Procalcitonin 0.06 Negative RVP PLAN - Antibiotic day 5 - DuoNebs q8h - Continue Medrol dose taper - CPT with neb treatments and incentive spirometry - O2 supplementation for goal satO2 > 88% - RT assess and treat - Scheduled guaifenesin - Walk with RT to evaluate oxygen need prior to discharge Diabetes mellitus, HbA1c 5.9 Peripheral neuropathy Admission glucose 137 Glucose trend 90-234 Patient endorses compliance Home management with Levemir 25u QD PLAN - Accu checks pre-meals and HS - Continue glargine bedtime, adjust as necessary - Consistent carbohydrate diet - Hypoglycemia protocol Hypertension BP on admission 141/83, trend 103-144/47-53 Home management with amlodipine, losartan and metoprolol PLAN - Reconcile home medications - PRN Hydralazine Thrombus in apical septal wall on echocardiogram 01/2019 on warfarin for anticoagulation Mildly subtherapeutic INR INR on admission 2.71-> 2.41 -> 2.0-> 1.88 PLAN - Pharmacy to dose warfarin - Daily INR Coronary artery disease s/p stent placement Stage 1 diastolic dysfunction Dyslipidemia Echocardiogram 01/2019 with abnormal septal motion with preserved EF at 50% Home management with aspirin, metoprolol, losartan, isosorbide mononitrate, furosemide, spironolactone, atorvastatin PLAN - Continue home medications - NO NEED FOR TELEMETRY PROPHYLAXIS DVT- Warfarin GI- not indicated CODE STATUS: FULL CODE DISPOSITION: Patient will remain admitted to medsur unit fro repeat labs in AM to make sure kidney function is not worsening, urine output subjectively preserved Discharge likely in AM PT recommending front wheel walker and home with family From [place]. Lives at daughter's house with her, , granddaughter and great- granddaughter. Independent in ADLs, and IADLs except for transportation. PCP Dr. Ballesteros. - Patient Instructions Diet: Diabetic Diet Activity: As Tolerated Driving: Do Not Drive Showering/Bathing: May Shower Notify Provider of: Fever, Increased Pain, Nausea and/or Vomiting Other/Special Instructions: Follow-up with primary care provider within 5-7 days of discharge, sooner if needed. Resume home medications as directed. You finished your antibiotic course of treatment while here. Take your new medications as prescribed. Continue to utilize your incentive spirometer (clear /blue device you inhale through) and acapella (green tube you blow through) until your symptoms resolve. Wear you oxygen at home 2L at all times. 4L with activity. Resume blood glucose checks per your prior routine. Should symtpoms return or worsen contact your primary care provider or return to the Emergency Departement. - Discharge Plan *PRESCRIPTION DRUG MONITORING PROGRAM REVIEWED*: No *COPY OF PRESCRIPTION DRUG MONITORING REPORT IN PATIENT CRISTÓBAL: No Prescriptions/Med Rec: Benzonatate [Tessalon Perle] 100 mg PO TID #15 capsule guaiFENesin [Mucinex] 600 mg PO TID #15 tab.er methylPREDNISolone [Medrol] 4 mg PO DAILY #1 tablet Home Medications: Home Meds Acetaminophen/HYDROcodone [[place] 325-5 MG] 1 tab PO Q12H 08/13/17 [History] Albuterol [Proventil Neb Soln] 1 dose NEB TID 08/13/17 [History] Aspirin [Halfprin] 81 mg PO DAILY 08/13/17 [History] Cranberry Fruit Concentrate [Azo Cranberry] 1 tab PO DAILY 08/13/17 [History] Ezetimibe [Zetia] 10 mg PO DAILY 08/13/17 [History] Furosemide [Lasix] 20 mg PO DAILY 08/13/17 [History] Gabapentin [Gralise] 600 mg PO BID 08/13/17 [History] Insulin Detemir [Levemir] 30 units SQ BEDTIME 08/13/17 [History] Isosorbide Mononitrate [Imdur] 30 mg PO DAILY 08/13/17 [History] Losartan [Cozaar] 50 mg PO DAILY 08/13/17 [History] Nitroglycerin [Nitrostat] 0.4 mg SL ASDIRECTED PRN 08/13/17 [History] Spironolactone [Aldactone] 25 mg PO QAM 08/13/17 [History] Tiotropium Br/Olodaterol HCl [Stiolto Respimat Inhal [place]] 2 puff INH DAILY [History] allopurinoL [Zyloprim] 100 mg PO BID 08/13/17 [History] amLODIPine Besylate [Norvasc] 10 mg PO DAILY 08/13/17 [History] atorvaSTATin [Lipitor] 40 mg PO DAILY 08/13/17 [History] Albuterol [Ventolin HFA] 2 puff INH Q6HR 05/19/19 [History] Denosumab [Prolia] 1 injection SQ ASDIRECTED 05/19/19 [History] Insulin Aspart [NovoLOG] 6 unit SQ DAILY 05/19/19 [History] Warfarin Sodium [Coumadin] 2 mg PO SUMOWETHSA 05/19/19 [History] Warfarin Sodium [Coumadin] 3 mg PO TUFR 05/19/19 [History] Benzonatate [Tessalon Perle] 100 mg PO TID #15 capsule 05/24/19 [Rx] guaiFENesin [Mucinex] 600 mg PO TID #15 tab.er 05/24/19 [Rx] methylPREDNISolone [Medrol] 4 mg PO DAILY #1 tablet 05/24/19 [Rx] Oxygen Therapy Mode: Room Air Oxygen Flow Rate (L/min): 2 (2L at all times, 4L with activity ) Maintain SPO2% less than: 88 Maintain SpO2% greater than: 92 Patient Handouts: Chronic Obstructive Pulmonary Disease Exacerbation, Easy-to- Read, Sepsis, Adult, Home Oxygen Use, Adult, Community-Acquired Pneumonia, Adult , [id number] Referrals: Man Corbett MD [Primary Care Provider] - 06/01/19 1:15 pm (please attend the scheduled follow up appointment as listed.) - Discharge Summary/Plan Comment DC Time >30 min.: Yes (45 mins ) - General Info Date of Service: 05/24/19 Subjective Update: BM x2 today Slept OK Tolerating diet Ambulating with walker Has some reflux symptoms that made her cough last night SOB improved Feeling a lot better Functional Status: Reports: Pain Controlled, Tolerating Diet, Ambulating, Urinating, Incentive Spirometry, Other (acapella ). Denies: New Symptoms - Review of Systems General: Reports: Weakness. Denies: Fever, Fatigue, Malaise, Chills HEENT: Reports: No Symptoms. Denies: Headaches, Sore Throat Pulmonary: Reports: Shortness of Breath (improved ), Cough (improved ). Denies : Sputum, Wheezing Cardiovascular: Reports: No Symptoms, Dyspnea on Exertion (improved ). Denies: Chest Pain, Palpitations Gastrointestinal: Reports: No Symptoms. Denies: Abdominal Pain, Constipation, Diarrhea, Nausea, Vomiting Genitourinary: Reports: No Symptoms. Denies: Pain Musculoskeletal: Reports: No Symptoms Skin: Reports: No Symptoms. Denies: Cyanosis Neurological: Reports: No Symptoms. Denies: Confusion, Difficulty Walking, Gait Disturbance Psychiatric: Reports: No Symptoms - Patient Data Vitals - Most Recent: Last Vital Signs Temp 97.5 F 05/24/19 08:45 Pulse 84 05/24/19 08:45 Resp 16 05/24/19 08:45 BP 106/54 L 05/24/19 08:45 Pulse Ox 95 05/24/19 08:45 Weight - Most Recent: 159 lb 3.2 oz I&O - Last 24 hours: Intake & Output 05/23/19 05/24/19 05/24/19 22:59 06:59 14:59 Intake Total 1800 800 Output Total 850 1200 Balance 950 -400 Lab Results - Last 24 hrs: Laboratory Results - last 24 hr 05/23/19 05/23/19 05/23/19 Range/Units 05:21 15:55 21:10 WBC 14.22 H (3.98-10.04) K/mm3 RBC 3.86 L (3.98-5.22) M/mm3 Hgb 11.7 D (11.2-15.7) gm/dl Hct 37.1 (34.1-44.9) % MCV 96.1 H (79.4-94.8) fl MCH 30.3 (25.6-32.2) pg MCHC 31.5 L (32.2-35.5) g/dl RDW Std Deviation 46.9 H (36.4-46.3) fL Plt Count 328 (182-369) K/mm3 MPV 9.6 (9.4-12.3) fl Neut % (Auto) 81.4 H (34.0-71.1) % Lymph % (Auto) 10.6 L (19.3-51.7) % [place] % (Auto) 7.0 (4.7-12.5) % Eos % (Auto) 0 L (0.7-5.8) Baso % (Auto) 0.1 (0.1-1.2) % Neut # (Auto) 11.58 H (1.56-6.13) K/mm3 Lymph # (Auto) 1.51 (1.18-3.74) K/mm3 [place] # (Auto) 0.99 H (0.24-0.36) K/mm3 Eos # (Auto) 0.00 L (0.04-0.36) K/mm3 Baso # (Auto) 0.01 (0.01-0.08) K/mm3 Manual Slide Review Normal smear PT (9.7-12.0) SECONDS INR Sodium (136-145) mEq/L Potassium (3.5-5.1) mEq/L Chloride (98-107) mEq/L Carbon Dioxide (21-32) mEq/L Anion Gap (5-15) BUN (7-18) mg/dL Creatinine (0.55-1.02) mg/dL Est Cr Clr Drug Dosing mL/min Estimated GFR (MDRD) (>60) mL/min BUN/Creatinine Ratio (14-18) Glucose (83-115) mg/dL POC Glucose 159 H (83-110) mg/dL Calcium (8.5-10.1) mg/dL Ur Random Creatinine 37.2 (30.0-125.0) mg/dL Ur Random Sodium (40-220) mEq/L 05/23/19 05/23/19 05/24/19 Range/Units 21:10 21:48 05:39 WBC (3.98-10.04) K/mm3 RBC (3.98-5.22) M/mm3 Hgb (11.2-15.7) gm/dl Hct (34.1-44.9) % MCV (79.4-94.8) fl MCH (25.6-32.2) pg MCHC (32.2-35.5) g/dl RDW Std Deviation (36.4-46.3) fL Plt Count (182-369) K/mm3 MPV (9.4-12.3) fl Neut % (Auto) (34.0-71.1) % Lymph % (Auto) (19.3-51.7) % [place] % (Auto) (4.7-12.5) % Eos % (Auto) (0.7-5.8) Baso % (Auto) (0.1-1.2) % Neut # (Auto) (1.56-6.13) K/mm3 Lymph # (Auto) (1.18-3.74) K/mm3 [place] # (Auto) (0.24-0.36) K/mm3 Eos # (Auto) (0.04-0.36) K/mm3 Baso # (Auto) (0.01-0.08) K/mm3 Manual Slide Review PT 21.0 H (9.7-12.0) SECONDS INR 2.00 Sodium (136-145) mEq/L Potassium (3.5-5.1) mEq/L Chloride (98-107) mEq/L Carbon Dioxide (21-32) mEq/L Anion Gap (5-15) BUN (7-18) mg/dL Creatinine (0.55-1.02) mg/dL Est Cr Clr Drug Dosing mL/min Estimated GFR (MDRD) (>60) mL/min BUN/Creatinine Ratio (14-18) Glucose (83-115) mg/dL POC Glucose 178 H (83-110) mg/dL Calcium (8.5-10.1) mg/dL Ur Random Creatinine (30.0-125.0) mg/dL Ur Random Sodium 51 (40-220) mEq/L 05/24/19 05/24/19 05/24/19 Range/Units 05:39 06:07 11:28 WBC (3.98-10.04) K/mm3 RBC (3.98-5.22) M/mm3 Hgb (11.2-15.7) gm/dl Hct (34.1-44.9) % MCV (79.4-94.8) fl MCH (25.6-32.2) pg MCHC (32.2-35.5) g/dl RDW Std Deviation (36.4-46.3) fL Plt Count (182-369) K/mm3 MPV (9.4-12.3) fl Neut % (Auto) (34.0-71.1) % Lymph % (Auto) (19.3-51.7) % [place] % (Auto) (4.7-12.5) % Eos % (Auto) (0.7-5.8) Baso % (Auto) (0.1-1.2) % Neut # (Auto) (1.56-6.13) K/mm3 Lymph # (Auto) (1.18-3.74) K/mm3 [place] # (Auto) (0.24-0.36) K/mm3 Eos # (Auto) (0.04-0.36) K/mm3 Baso # (Auto) (0.01-0.08) K/mm3 Manual Slide Review PT (9.7-12.0) SECONDS INR Sodium 140 (136-145) mEq/L Potassium 3.7 (3.5-5.1) mEq/L Chloride 104 (98-107) mEq/L Carbon Dioxide 27 (21-32) mEq/L Anion Gap 12.7 (5-15) BUN 36 H (7-18) mg/dL Creatinine 0.9 (0.55-1.02) mg/dL Est Cr Clr Drug Dosing 38.79 mL/min Estimated GFR (MDRD) > 60 (>60) mL/min BUN/Creatinine Ratio 40.0 H (14-18) Glucose 108 (83-115) mg/dL POC Glucose 104 123 H (83-110) mg/dL Calcium 9.3 (8.5-10.1) mg/dL Ur Random Creatinine (30.0-125.0) mg/dL Ur Random Sodium (40-220) mEq/L CELINE Results - Last 24 hrs: Microbiology 05/23/19 17:10 Helicobacter pylori Antigen - Final Stool / Feces NEGATIVE H. PYLORI AG REFERENCE RANGE: NEGATIVE Med Orders - Current: Current Medications Acetaminophen (Tylenol) 325 mg PO Q4H PRN PRN Reason: Pain (Mild 1-3)/fever Hydrocodone Bitart/Acetaminophen ([place] 325-5 Mg) 1 tab PO Q12H [facility] Last Admin: 05/24/19 06:08 Dose: 1 tab Albuterol/Ipratropium (Duoneb 3.0-0.5 Mg/3 Ml) 3 ml NEB Q6HRRT [facility] Last Admin: 05/24/19 08:24 Dose: 3 ml Allopurinol (Zyloprim) 100 mg PO BID [facility] Last Admin: 05/24/19 08:23 Dose: 100 mg Amlodipine Besylate (Norvasc) 10 mg PO DAILY [facility] Last Admin: 05/24/19 08:22 Dose: 10 mg Aspirin (Halfprin) 81 mg PO DAILY [facility] Last Admin: 05/24/19 08:23 Dose: 81 mg Benzonatate (Tessalon Perles) 100 mg PO TID [facility] Last Admin: 05/24/19 08:23 Dose: 100 mg Bismuth Subsalicylate (Pepto Bismol) 30 ml PO Q4H PRN PRN Reason: reflux Dextrose/Water (Dextrose 50% In Water) 50 ml IVPUSH ASDIRECTED PRN PRN Reason: Hypoglycemia Ezetimibe (Zetia) 10 mg PO DAILY [facility] Last Admin: 05/24/19 08:23 Dose: 10 mg Famotidine (Pepcid) 20 mg PO BEDTIME [facility] Last Admin: 05/23/19 21:51 Dose: 20 mg Furosemide (Lasix) 20 mg PO DAILY [facility] Last Admin: 05/24/19 08:22 Dose: 20 mg Gabapentin (Neurontin) 600 mg PO BID [facility] Last Admin: 05/24/19 08:23 Dose: 600 mg Guaifenesin (Mucinex) 600 mg PO TID [facility] Last Admin: 05/24/19 08:23 Dose: 600 mg Hydralazine HCl (Apresoline) 10 mg IVPUSH Q2H PRN PRN Reason: Hypertension Insulin Glargine (Lantus) 25 unit SUBCUT BEDTIME [facility] Last Admin: 05/23/19 21:53 Dose: 25 units Isosorbide Mononitrate (Imdur) 30 mg PO DAILY [facility] Last Admin: 05/24/19 08:23 Dose: 30 mg Losartan Potassium (Cozaar) 50 mg PO BEDTIME [facility] Last Admin: 05/23/19 21:52 Dose: 50 mg Methylprednisolone (Medrol) 4 mg PO DAILY [facility] Stop: 05/25/19 09:01 Ondansetron HCl (Zofran Odt) 4 mg PO Q6H PRN PRN Reason: nausea, able to take PO Ondansetron HCl (Zofran) 4 mg IV Q6H PRN PRN Reason: Nausea/Vomiting Rosuvastatin Calcium (Crestor) 10 mg PO DAILY [facility] Last Admin: 05/24/19 08:23 Dose: 10 mg Sodium Chloride (Saline Flush) 10 ml FLUSH ASDIRECTED PRN PRN Reason: Keep Vein Open Spironolactone (Aldactone) 25 mg PO QAM [facility] Last Admin: 05/24/19 08:23 Dose: 25 mg Warfarin Sodium (Pharmacy To Dose - Warfarin) 0 dose .XX ASDIRECTED PRN PRN Reason: RX TO DOSE COUMADIN Discontinued Medications Albuterol (Proventil Neb Soln) 2.5 mg NEB ONETIME ONE Stop: 05/19/19 16:07 Last Admin: 05/19/19 16:21 Dose: 2.5 mg Albuterol/Ipratropium (Duoneb 3.0-0.5 Mg/3 Ml) 3 ml NEB ONETIME ONE Stop: 05/19/19 14:36 Last Admin: 05/19/19 15:02 Dose: 3 ml Albuterol/Ipratropium (Duoneb 3.0-0.5 Mg/3 Ml) 3 ml NEB Q4HRRT [facility] Last Admin: 05/21/19 10:45 Dose: 3 ml Azithromycin (Zithromax) 500 mg PO BEDTIME [facility] Last Admin: 05/23/19 21:50 Dose: 500 mg Cefdinir (Omnicef) 300 mg PO BID [facility] Last Admin: 05/24/19 08:24 Dose: 300 mg Enoxaparin Sodium (Lovenox) 40 mg SUBCUT DAILY [facility] Azithromycin 500 mg/ Sodium (Chloride) 250 mls @ 250 mls/hr IV Q24H [facility] Last Admin: 05/19/19 18:43 Dose: Not Given Ceftriaxone Sodium 2 gm/ (Sodium Chloride) 100 mls @ 200 mls/hr IV Q24H [facility] Last Admin: 05/19/19 18:42 Dose: Not Given Ceftriaxone Sodium 2 gm/ (Sodium Chloride) 100 mls @ 200 mls/hr IV Q24H [facility] Last Admin: 05/20/19 18:39 Dose: 200 mls/hr Azithromycin 500 mg/ Sodium (Chloride) 250 mls @ 250 mls/hr IV Q24H [facility] Last Admin: 05/20/19 20:16 Dose: 250 mls/hr Methylprednisolone (Medrol) 24 mg PO DAILY [facility] Stop: 05/20/19 09:01 Last Admin: 05/20/19 10:19 Dose: 24 mg Methylprednisolone (Medrol) 20 mg PO DAILY [facility] Stop: 05/21/19 09:01 Last Admin: 05/21/19 08:53 Dose: 20 mg Methylprednisolone (Medrol) 16 mg PO DAILY [facility] Stop: 05/22/19 09:01 Last Admin: 05/22/19 08:45 Dose: 16 mg Methylprednisolone (Medrol) 12 mg PO DAILY [facility] Stop: 05/23/19 09:01 Last Admin: 05/23/19 08:08 Dose: 12 mg Methylprednisolone (Medrol) 8 mg PO DAILY [facility] Stop: 05/24/19 09:01 Last Admin: 05/24/19 08:23 Dose: 8 mg Methylprednisolone Sodium Succinate (Solu-Medrol) 125 mg IVPUSH ONETIME ONE Stop: 05/19/19 14:37 Last Admin: 05/19/19 15:10 Dose: 125 mg Warfarin Sodium (Coumadin Sliding Scale) 0 each PO QPM [facility] Stop: 05/19/19 21:00 Last Admin: 05/19/19 18:05 Dose: Not Given Warfarin Sodium (Coumadin Sliding Scale) 0 each PO QPM [facility] Stop: 05/20/19 18:01 Last Admin: 05/20/19 18:56 Dose: Not Given Warfarin Sodium (Coumadin) 3 mg PO QPM [facility] Stop: 05/21/19 18:01 Last Admin: 05/21/19 18:02 Dose: 3 mg Warfarin Sodium (Coumadin) 2 mg PO ONETIME ONE Stop: 05/22/19 18:01 Last Admin: 05/22/19 17:11 Dose: 2 mg Warfarin Sodium (Coumadin) 2 mg PO ONETIME ONE Stop: 05/23/19 18:01 Last Admin: 05/23/19 18:12 Dose: 2 mg - Exam Quality Assessment: Reports: Supplemental Oxygen (2L), DVT Prophylaxis General: Reports: Alert, Oriented, Cooperative, No Acute Distress HEENT: Reports: Pupils Equal, Pupils Reactive, Mucous Membr. Moist/[place] Neck: Reports: Supple, Trachea Midline Lungs: Reports: Normal Respiratory Effort, Decreased Breath Sounds, Crackles GI/Abdominal Exam: Normal Bowel Sounds, Soft, Non-Tender, No Distention (Female) Exam: Deferred Rectal (Female) Exam: Deferred Back Exam: Reports: Normal Inspection, Decreased Range of Motion Extremities: Normal Inspection, Normal Range of Motion, Non-Tender, No Pedal Edema, Normal Capillary Refill Skin: Reports: Warm, Dry, Intact Neurological: Reports: No New Focal Deficit Psy/Mental Status: Reports: Alert, Normal Affect, Normal Mood
== END 2019-05-24 15:09 | disposition home or self-care (01) | DRG 193 ==
LOC: JD.ED 14:15 → JD.MS 16:53 → OBSVTOIN 17:04
PROVIDERS: ADMIT Internal Medicine; ATTEND Internal Medicine
DX: J15.9 Unspecified bacterial pneumonia (principal); J96.21 Acute and chronic respiratory failure with hypoxia; J44.0 Chronic obstructive pulmonary disease with (acute) lower respiratory infection; J44.1 Chronic obstructive pulmonary disease with (acute) exacerbation; I10 Essential (primary) hypertension; Z95.5 Presence of coronary angioplasty implant and graft; E78.00 Pure hypercholesterolemia, unspecified; G47.30 Sleep apnea, unspecified; I25.10 Atherosclerotic heart disease of native coronary artery without angina pectoris; H54.7 Unspecified visual loss; K21.9 Gastro-esophageal reflux disease without esophagitis; E11.9 Type 2 diabetes mellitus without complications; M19.90 Unspecified osteoarthritis, unspecified site; M81.0 Age-related osteoporosis without current pathological fracture; E11.42 Type 2 diabetes mellitus with diabetic polyneuropathy; E83.42 Hypomagnesemia; R79.1 Abnormal coagulation profile; Z79.899 Other long term (current) drug therapy; R62.52 Short stature (child); E78.5 Hyperlipidemia, unspecified; I51.3 Intracardiac thrombosis, not elsewhere classified; D47.3 Essential (hemorrhagic) thrombocythemia; G47.33 Obstructive sleep apnea (adult) (pediatric); I51.89 Other ill-defined heart diseases; Z99.81 Dependence on supplemental oxygen; Z79.51 Long term (current) use of inhaled steroids; Z79.82 Long term (current) use of aspirin; Z79.4 Long term (current) use of insulin; Z79.01 Long term (current) use of anticoagulants; I25.2 Old myocardial infarction; Z90.710 Acquired absence of both cervix and uterus
CPT/HCPCS: 36415; 36600; 71045; 80053; 82803; 83036; 83880; 84145; 84484; 85025; 85610; 93005; 94640 ×2; 96374; 99285; J2930; 80048; 82570; 82962; 83605; 83735; 84100; 84300; 87338; 87486; 87581; 87632; 87798; 87899; 94667; 94668; 94761; 97110-GP; 97116-GP; 97161-GP; 97165-GO; 97535-GO; 99284; A9270-GY; J0456; J0696; J1815-GY; J7050; J7620-GY

== ENCOUNTER 2019-06-03 13:23 | Emergency (ER) | payer MEDICARE, OTHER ==
[2019-06-03 13:38] VITALS: BP 181/98; PULSE 105
[2019-06-03] MEDS ORDERED: 50% Dextrose in Water 50 ML Syringe ONE (13:47)
[2019-06-03] MEDS ORDERED: 50% Dextrose in Water 50 ML Syringe IVPUSH ONE (13:50)
--- NOTE | 2019-06-03 13:57 | EDM.PDOC ---
ED HPI GENERAL MEDICAL PROBLEM - General Chief Complaint: Neuro Symptoms/Deficits Stated Complaint: POSS STROKE Time Seen by Provider: 06/03/19 13:50 Source of Information: Reports: Patient, Family (daughter) History Limitations: Reports: No Limitations - History of Present Illness INITIAL COMMENTS - FREE TEXT/NARRATIVE: 73-year-old female brought to the ED by daughter after she identified her to experiencing neuro symptoms at home. She was in the back room and was staring off into space not answering appropriately and confused. She would just answer I do not know she was noted to be diaphoretic. He is an insulin-dependent diabetic having taken insulin after breakfast this morning and reports she did not really eat as much as normal. Has not yet eaten any dinner. Blood sugar in the ED was 39. Able to speak to me when I visited with her in the ED before giving her an amp of D50 percent. Ports that she is not been having a lot of hypoglycemic reactions. She states on the other hand her sugars have been running a bit higher than normal. She denies any other signs of illness such as any worsening cough or urinary tract symptoms. Onset: Today Onset Date: 06/03/19 Onset Time: 13:05 Duration: Minutes: Location: Reports: Generalized ( and was staring off into space.) Quality: Reports: Other (Acute onset of confusion disorientation and barely being able to be verbal.) Severity: Severe Improves with: Reports: Other (Proved spontaneously as her blood sugar returned to normal) Worsens with: Reports: None Context: Reports: Other (Acute). Denies: Activity, Exercise, Lifting, Sick Contact, Trauma Associated Symptoms: Reports: Confusion ( insulin reaction with hypoglycemia.), Cough, Malaise (Cough), Shortness of Breath, Weakness. Denies: Chest Pain, cough w sputum, Diaphoresis, Fever/Chills, Headaches, Loss of Appetite, Nausea/ Vomiting, Rash, Seizure, Syncope (On a daily smoker) Treatments HUMAN RESOURCES MANAGER: Reports: Other (see below) (Realized) - Related Data Allergies Allergy/AdvReac Type Severity Reaction Status Date / Time No Known Allergies Allergy Verified 06/03/19 13:38 Home Meds: Home Meds Acetaminophen/HYDROcodone [Reva 325-5 MG] 1 tab PO Q12H 08/13/17 [History] Albuterol [Proventil Neb Soln] 1 dose NEB TID 08/13/17 [History] Aspirin [Halfprin] 81 mg PO DAILY 08/13/17 [History] Cranberry Fruit Concentrate [Azo Cranberry] 1 tab PO DAILY 08/13/17 [History] Ezetimibe [Zetia] 10 mg PO DAILY 08/13/17 [History] Furosemide [Lasix] 20 mg PO DAILY 08/13/17 [History] Gabapentin [Gralise] 600 mg PO BID 08/13/17 [History] Insulin Detemir [Levemir] 30 units SQ BEDTIME 08/13/17 [History] Isosorbide Mononitrate [Imdur] 30 mg PO DAILY 08/13/17 [History] Losartan [Cozaar] 50 mg PO DAILY 08/13/17 [History] Nitroglycerin [Nitrostat] 0.4 mg SL ASDIRECTED PRN 08/13/17 [History] Spironolactone [Aldactone] 25 mg PO QAM 08/13/17 [History] Tiotropium Br/Olodaterol HCl [Stiolto Respimat Inhal Teague] 2 puff INH DAILY [History] allopurinoL [Zyloprim] 100 mg PO BID 08/13/17 [History] amLODIPine Besylate [Norvasc] 10 mg PO DAILY 08/13/17 [History] atorvaSTATin [Lipitor] 40 mg PO DAILY 08/13/17 [History] Albuterol [Ventolin HFA] 2 puff INH Q6HR 05/19/19 [History] Denosumab [Prolia] 1 injection SQ ASDIRECTED 05/19/19 [History] Insulin Aspart [NovoLOG] 6 unit SQ DAILY 05/19/19 [History] Warfarin Sodium [Coumadin] 2 mg PO SUMOWETHSA 05/19/19 [History] Warfarin Sodium [Coumadin] 3 mg PO TUFR 05/19/19 [History] Benzonatate [Tessalon Perle] 100 mg PO TID #15 capsule 05/24/19 [Rx] guaiFENesin [Mucinex] 600 mg PO TID #15 tab.er 05/24/19 [Rx] Past Medical History HEENT History: Reports: Impaired Vision Other HEENT History: Wears glasses Cardiovascular History: Reports: CAD, High Cholesterol, Hypertension, [place], Stents , Other (See Below) Other Cardiovascular History: edema, hypotension Respiratory History: Reports: COPD, Sleep Apnea, SOB, Other (See Below) Other Respiratory History: restrictive lung disease, continuous O2 Gastrointestinal History: Reports: GERD Genitourinary History: Reports: Other (See Below) Other Genitourinary History: HX of Renal Insuff. FAMILY NURSE History: Reports: Other FAMILY NURSE History: hysterectomy Musculoskeletal History: Reports: Arthritis, Osteoporosis Neurological History: Reports: Other (See Below) Other Neuro History: back surgery Psychiatric History: Reports: None Endocrine/Metabolic History: Reports: Diabetes, Type II, Obesity/BMI 30+ Hematologic History: Reports: None Immunologic History: Reports: None Oncologic (Cancer) History: Reports: None Dermatologic History: Reports: Eczema Other Dermatologic History: eczema - Infectious Disease History Infectious Disease History: Reports: Chicken Pox, Measles - Past Surgical History Head Surgeries/Procedures: Reports: None Cardiovascular Surgical History: Reports: None Respiratory Surgical History: Reports: None GI Surgical History: Reports: None Female Surgical History: Reports: Hysterectomy Endocrine Surgical History: Reports: None Neurological Surgical History: Reports: Lumbar Spine Musculoskeletal Surgical History: Reports: Arthroscopic Knee, Shoulder Surgery, Other (See Below) Other Musculoskeletal Surgeries/Procedures:: Knee surgery, back surgery. Social & Family History - Family History Family Medical History: Noncontributory - Tobacco Use Smoking Status *Q: Never Smoker - Caffeine Use Caffeine Use: Reports: None - Recreational Drug Use Recreational Drug Use: No - Living Situation & Occupation Living situation: Reports: Occupation: Retired ED ROS GENERAL - Review of Systems Review Of Systems: See Below Constitutional: Reports: Fatigue, Decreased Appetite, Weight Loss HEENT: Reports: Glasses Respiratory: Reports: Shortness of Breath, Wheezing ([place] from cigarette smoking), Cough Cardiovascular: Reports: Blood Pressure Problem, Dyspnea on Exertion, Lightheadedness. Denies: Chest Pain, Claudication, Orthopnea Endocrine: Reports: Fatigue (Chronically), High Glucose (Blood sugars run too high are often over 200) GI/Abdominal: Reports: Constipation (Occasional problems with constipation.) : Reports: Frequency, Incontinence (Both urge and stress components) Musculoskeletal: Reports: Back Pain, Joint Pain (Hips shoulders and neck at times) Skin: Reports: No Symptoms Neurological: Reports: Confusion, Dizziness (Today associated with development of hypoglycemic reaction.) Psychiatric: Reports: No Symptoms Hematologic/Lymphatic: Reports: No Symptoms Immunologic: Reports: No Symptoms ED EXAM, NEURO - Physical Exam Exam: See Below Exam Limited By: No Limitations General Appearance: Alert, WD/WN, No Apparent Distress, Other (36.1 pulse ox 95 % on room air heart rate 105 tachycardia at the bedside respiratory is 18) Eye Exam: Bilateral Eye: Normal Inspection Throat/Mouth: Normal Inspection, Normal Lips, Normal Oropharynx, Other Head Exam: Atraumatic, Normocephalic (Is mildly dry) Neck: Normal Inspection, Supple, Non-Tender, Full Range of Motion. No: Lymphadenopathy (L), Lymphadenopathy (R) Respiratory/Chest: No Respiratory Distress, Decreased Breath Sounds, Wheezing ( Creased breath sounds of the lower 25% lung yee bilaterally. Usual expiratory wheeze.), Other (Kyphosis thoracic spine). No: Lungs Clear, Normal Breath Sounds, Chest Non-Tender, Respiratory Distress Cardiovascular: No Edema, No Gallop (Sinus tachycardia 110/min), Tachycardia, Systolic Murmur (2 out of 6 pansystolic ejection murmur best heard at left lower sternal border complete with aortic stenosis. It radiates towards the right carotid artery). No: Normal Peripheral Pulses GI/Abdominal: Normal Bowel Sounds, Soft, Non-Tender, No Organomegaly, No Mass, Pelvis Stable Neurological: Alert, Normal Mood/Affect, Normal Dorsiflexion, CN II-XII Intact, Oriented x 3, Other (He has chronic peripheral neuropathy in both lower extremities.) DTR: 1+: Bicep (R), Bicep (L), Patella (R), Patella (L) Back Exam: Other (Mild kyphosis thoracic spine) Extremities: Normal Inspection, Normal Range of Motion, Non-Tender, Other ( Tensive degenerative arthritis both knees) Psychiatric: Normal Affect, Normal Mood Skin Exam: Warm, Dry, Intact, Normal Color, No Rash EKG INTERPRETATION EKG Date: 06/03/19 Time: 13:30 (Occasional PVCs) Rhythm: Other Rate (Beats/Min): 104 [place]: Normal P-Wave: Enlarged (Left atrial hypertrophy.) QRS: Other (She has near Q waves V1 V2 and definite Q wave in V2 V3 suggesting old anteroseptal myocardial infarction. Also Q waves in 3 and aVF consider old inferior wall myocardial infarction.) QT: Prolonged (Minimally prolonged) EKG Interpretation Comments: Abnormal ECG Course - Vital Signs Last Recorded V/S: Last Vital Signs Temp 36.1 C 06/03/19 13:32 Pulse 105 H 06/03/19 13:32 Resp 18 06/03/19 13:32 BP 181/98 H 06/03/19 13:32 Pulse Ox 95 06/03/19 13:32 - Orders/Labs/Meds Orders: Active Orders 24 hr Category Date Time Status EKG Documentation Completion [RC] STAT Care 06/03/19 13:52 Active GLYCOSYLATED HEMOGLOBIN,HGBA1C [CHEM] Stat Lab 06/03/19 13:48 Received URINALYSIS W/MICROSCOPIC [UA W/MICROSCOPIC] [URIN] Stat Lab 06/03/19 13:53 Ordered Dextrose 5%-0.9% NaCl [Dextrose 5%-Normal Saline] 1,000 Med 06/03/19 14:00 Active ml IV ASDIRECTED Medication Orders Dextrose/Sodium Chloride (Dextrose 5%-Normal Saline) 1,000 mls @ 150 mls/hr IV ASDIRECTED DAYSI Last Admin: 06/03/19 14:02 Dose: 150 mls/hr Labs: Laboratory Tests 06/03/19 06/03/19 06/03/19 Range/Units 13:46 13:48 13:48 WBC 16.37 H (3.98-10.04) K/mm3 RBC 4.37 (3.98-5.22) M/mm3 Hgb 13.2 D (11.2-15.7) gm/dl Hct 41.5 (34.1-44.9) % MCV 95.0 H (79.4-94.8) fl MCH 30.2 (25.6-32.2) pg MCHC 31.8 L (32.2-35.5) g/dl RDW Std Deviation 49.5 H (36.4-46.3) fL Plt Count 255 (182-369) K/mm3 MPV 9.3 L (9.4-12.3) fl Neut % (Auto) 83.3 H (34.0-71.1) % Lymph % (Auto) 8.2 L (19.3-51.7) % [place] % (Auto) 6.2 (4.7-12.5) % Eos % (Auto) 1.8 (0.7-5.8) Baso % (Auto) 0.2 (0.1-1.2) % Neut # (Auto) 13.63 H (1.56-6.13) K/mm3 Lymph # (Auto) 1.35 (1.18-3.74) K/mm3 [place] # (Auto) 1.01 H (0.24-0.36) K/mm3 Eos # (Auto) 0.29 (0.04-0.36) K/mm3 Baso # (Auto) 0.04 (0.01-0.08) K/mm3 Manual Slide Review Abnormal smear PT (9.7-12.0) SECONDS INR Sodium 144 (136-145) mEq/L Potassium 3.2 L (3.5-5.1) mEq/L Chloride 108 H (98-107) mEq/L Carbon Dioxide 25 (21-32) mEq/L Anion Gap 14.2 (5-15) BUN 12 (7-18) mg/dL Creatinine 0.9 (0.55-1.02) mg/dL Est Cr Clr Drug Dosing 38.79 mL/min Estimated GFR (MDRD) > 60 (>60) mL/min BUN/Creatinine Ratio 13.3 L (14-18) Glucose 39 L (83-115) mg/dL POC Glucose 39 L (83-110) mg/dL Calcium 9.8 (8.5-10.1) mg/dL Magnesium 1.7 L (1.8-2.4) mg/dl Total Bilirubin 0.4 (0.2-1.0) mg/dL AST 40 H (15-37) U/L ALT 43 (14-59) U/L Alkaline Phosphatase 91 (46-116) U/L Troponin I < 0.017 (0.00-0.056) ng/mL C-Reactive Protein 1.1 H* (<1.0) mg/dL NT-Pro-B Natriuret Pep (0-450) pg/mL Total Protein 7.2 (6.4-8.2) g/dl Albumin 3.2 L (3.4-5.0) g/dl Globulin 4.0 gm/dL Albumin/Globulin Ratio 0.8 L (1-2) 06/03/19 06/03/19 06/03/19 Range/Units 13:48 13:48 15:03 WBC (3.98-10.04) K/mm3 RBC (3.98-5.22) M/mm3 Hgb (11.2-15.7) gm/dl Hct (34.1-44.9) % MCV (79.4-94.8) fl MCH (25.6-32.2) pg MCHC (32.2-35.5) g/dl RDW Std Deviation (36.4-46.3) fL Plt Count (182-369) K/mm3 MPV (9.4-12.3) fl Neut % (Auto) (34.0-71.1) % Lymph % (Auto) (19.3-51.7) % [place] % (Auto) (4.7-12.5) % Eos % (Auto) (0.7-5.8) Baso % (Auto) (0.1-1.2) % Neut # (Auto) (1.56-6.13) K/mm3 Lymph # (Auto) (1.18-3.74) K/mm3 [place] # (Auto) (0.24-0.36) K/mm3 Eos # (Auto) (0.04-0.36) K/mm3 Baso # (Auto) (0.01-0.08) K/mm3 Manual Slide Review PT 37.5 H D (9.7-12.0) SECONDS INR 3.71 Sodium (136-145) mEq/L Potassium (3.5-5.1) mEq/L Chloride (98-107) mEq/L Carbon Dioxide (21-32) mEq/L Anion Gap (5-15) BUN (7-18) mg/dL Creatinine (0.55-1.02) mg/dL Est Cr Clr Drug Dosing mL/min Estimated GFR (MDRD) (>60) mL/min BUN/Creatinine Ratio (14-18) Glucose 147 H (83-115) mg/dL POC Glucose (83-110) mg/dL Calcium (8.5-10.1) mg/dL Magnesium (1.8-2.4) mg/dl Total Bilirubin (0.2-1.0) mg/dL AST (15-37) U/L ALT (14-59) U/L Alkaline Phosphatase (46-116) U/L Troponin I (0.00-0.056) ng/mL C-Reactive Protein (<1.0) mg/dL NT-Pro-B Natriuret Pep 179 (0-450) pg/mL Total Protein (6.4-8.2) g/dl Albumin (3.4-5.0) g/dl Globulin gm/dL Albumin/Globulin Ratio (1-2) 06/03/19 06/03/19 Range/Units 15:50 15:58 WBC (3.98-10.04) K/mm3 RBC (3.98-5.22) M/mm3 Hgb (11.2-15.7) gm/dl Hct (34.1-44.9) % MCV (79.4-94.8) fl MCH (25.6-32.2) pg MCHC (32.2-35.5) g/dl RDW Std Deviation (36.4-46.3) fL Plt Count (182-369) K/mm3 MPV (9.4-12.3) fl Neut % (Auto) (34.0-71.1) % Lymph % (Auto) (19.3-51.7) % [place] % (Auto) (4.7-12.5) % Eos % (Auto) (0.7-5.8) Baso % (Auto) (0.1-1.2) % Neut # (Auto) (1.56-6.13) K/mm3 Lymph # (Auto) (1.18-3.74) K/mm3 [place] # (Auto) (0.24-0.36) K/mm3 Eos # (Auto) (0.04-0.36) K/mm3 Baso # (Auto) (0.01-0.08) K/mm3 Manual Slide Review PT (9.7-12.0) SECONDS INR Sodium (136-145) mEq/L Potassium (3.5-5.1) mEq/L Chloride (98-107) mEq/L Carbon Dioxide (21-32) mEq/L Anion Gap (5-15) BUN (7-18) mg/dL Creatinine (0.55-1.02) mg/dL Est Cr Clr Drug Dosing mL/min Estimated GFR (MDRD) (>60) mL/min BUN/Creatinine Ratio (14-18) Glucose 212 H (83-115) mg/dL POC Glucose 191 H (83-110) mg/dL Calcium (8.5-10.1) mg/dL Magnesium (1.8-2.4) mg/dl Total Bilirubin (0.2-1.0) mg/dL AST (15-37) U/L ALT (14-59) U/L Alkaline Phosphatase (46-116) U/L Troponin I (0.00-0.056) ng/mL C-Reactive Protein (<1.0) mg/dL NT-Pro-B Natriuret Pep (0-450) pg/mL Total Protein (6.4-8.2) g/dl Albumin (3.4-5.0) g/dl Globulin gm/dL Albumin/Globulin Ratio (1-2) Meds: Medications Generic Name Dose Route Start Last Admin Trade Name Freq PRN Reason Stop Dose Admin Dextrose/Sodium Chloride 1,000 mls @ 150 mls/hr 06/03/19 14:00 06/03/19 14:02 Dextrose 5%-Normal Saline IV 150 mls/hr ASDIRECTED DAYSI Administration Discontinued Medications Generic Name Dose Route Start Last Admin Trade Name Freq PRN Reason Stop Dose Admin Dextrose/Water Confirm 06/03/19 13:47 06/03/19 13:54 Dextrose 50% In Water Administered 06/03/19 13:48 Not Given Dose 50 ml .ROUTE .STK-MED ONE Dextrose/Water 50 ml 06/03/19 13:50 06/03/19 13:54 Dextrose 50% In Water IVPUSH 06/03/19 13:51 50 ml ONETIME ONE Administration - Radiology Interpretation Free Text/Narrative:: 73-year-old female presents to the ED with a severe hypoglycemic insulin reaction. She was improved according to the daughter who brought her to the hospital from home where she could just stare off into space and not answer. Her blood sugar upon arrival in the ED was 39. She could talk and was much more alert at that time. She was given an amp of D50 IV. She will have routine labs performed and a urinalysis. IV will be D5 normal saline at 150 mils per hour. Blood sugars will be checked q. hourly. - Re-Assessments/Exams Free Text/Narrative Re-Assessment/Exam: 03/19/20 15:24 White count is elevated at 16.37. Differential is 83.3% neutrophils. Slide does not reveal any bands cells. Hemoglobin is 13.2 with hematocrit of 41.5. MCV is 95.0. Platelet counts 255,000. Sodium is 144 with potassium slightly low at 3.2. Chloride is 108 with a bicarb of 25. Anion gap is 14.2. BUN was 12 with a creatinine of 0.9. GFR is greater than 60. Glucose is 39 initially and she received an amp of D50 at that time. Calcium is 9.8 magnesium slightly low at 1.7. Bilirubin is normal at 0.4 AST was 40. Troponin I is less than 0.017 C-reactive protein 1.1 BNP 179 total protein 7.2 with an albumin fraction slightly low at 3.2. Patient has eaten a good dinner meal. Awaiting her most recent sugar level. 06/03/19 15:55 sugar at 1503 was 147. She is due for repeat blood sugar anytime now. 06/03/19 16:08 and blood sugar over the last 2 hours is now up to 191. This means the patient will be safe to send home. Her IV dextrose infusion will be discontinued. Her family left for short period of time but she will be discharged once they return. Departure - Departure Time of Disposition: 16:30 Disposition: Home, Self-Care 01 Condition: Fair Clinical Impression: Hypoglycemic reaction to insulin Insulin adverse reaction Qualifiers: Encounter type: initial encounter Qualified Code(s): T38.3X5A - Adverse effect of insulin and oral hypoglycemic [antidiabetic] drugs, initial encounter - Discharge Information *PRESCRIPTION DRUG MONITORING PROGRAM REVIEWED*: Not Applicable *COPY OF PRESCRIPTION DRUG MONITORING REPORT IN PATIENT CRISTÓBAL: Not Applicable Instructions: Hypoglycemia, [id number] Referrals: Man Corbett MD [Primary Care Provider] - Forms: ED Department Discharge Additional Instructions: Evaluation in the emergency room today in regards to development of an insulin reaction with blood sugar dropping likely below 39 as is what it was when he reached the emergency room and you were able to communicate fairly normally even at that level level. At home he was staring off into space and could not communicate normally suggesting that the blood sugar was even lower. Insulin was last taken at breakfast time this morning and it is likely that you did not eat enough this morning to cover for the insulin load although it is also possible that you gave herself too much insulin and created a hypoglycemic event. You were treated in the emergency room with a amp of D50 which brought your sugar up. 1 hour later your sugar was 143 and 2 hours later it is up to 191 after eating a good dinner. You were therefore discharged to home and you should eat supper tonight. Suggest using only two thirds of your normal dose of insulin tonight a instead of 30 units suggest only 20 units tonight but resume regular insulin use tomorrow. Sepsis Event Note - Evaluation Sepsis Screening Result: No Definite Risk - Focused Exam Vital Signs: Vital Signs Temp Pulse Resp BP Pulse Ox 06/03/19 13:32 36.1 C 105 H 18 181/98 H 95 Date Exam was Performed: 06/03/19 Time Exam was Performed: 17:11 - My Orders Last 24 Hours: My Active Orders 06/03/19 13:48 GLYCOSYLATED HEMOGLOBIN,HGBA1C [CHEM] Stat 06/03/19 13:52 EKG Documentation Completion [RC] STAT 06/03/19 13:53 URINALYSIS W/MICROSCOPIC [UA W/MICROSCOPIC] [URIN] Stat 06/03/19 14:00 Dextrose 5%-0.9% NaCl [Dextrose 5%-Normal Saline] 1,000 ml IV ASDIRECTED - Assessment/Plan Last 24 Hours: My Active Orders 06/03/19 13:48 GLYCOSYLATED HEMOGLOBIN,HGBA1C [CHEM] Stat 06/03/19 13:52 EKG Documentation Completion [RC] STAT 06/03/19 13:53 URINALYSIS W/MICROSCOPIC [UA W/MICROSCOPIC] [URIN] Stat 06/03/19 14:00 Dextrose 5%-0.9% NaCl [Dextrose 5%-Normal Saline] 1,000 ml IV ASDIRECTED
[2019-06-03] MEDS ORDERED: Dextrose 5%-0.9% NaCl 1,000 ML IV SCH (14:00)
[2019-06-03 17:49] LABS: HEMOGLOBIN A1C 5.9 % (4.50-6.20)
== END 2019-06-03 16:45 | disposition home or self-care (01) ==
LOC: JD.ED 13:23
DX: R41.0 Disorientation, unspecified (principal); T38.3X5A Adverse effect of insulin and oral hypoglycemic [antidiabetic] drugs, initial encounter
CPT/HCPCS: 36415; 80053; 82947; 82962; 83036; 83735; 83880; 84484; 85025; 85610; 86140; 93005; 96360; 96361; 99285; J7042; 93010; 99284

== ENCOUNTER 2019-09-08 03:55 | Emergency (ER) | payer MEDICARE, OTHER ==
[2019-09-08] MEDS ORDERED: 50% Dextrose in Water 50 ML Syringe ONE (04:08)
[2019-09-08] MEDS ORDERED: 50% Dextrose in Water 50 ML Syringe IVPUSH STA (04:11)
--- NOTE | 2019-09-08 04:30 | EDM.PDOC ---
ED HPI GENERAL MEDICAL PROBLEM - General Chief Complaint: General Stated Complaint: [facility] Time Seen by Provider: 09/08/19 04:05 Source of Information: Reports: Patient, Family (Daughter) History Limitations: Reports: No Limitations - History of Present Illness INITIAL COMMENTS - FREE TEXT/NARRATIVE: Mrs. Castillo is a very pleasant 74-year-old woman with a past medical history significant for insulin requiring diabetes and diabetic nephropathy, who is now brought to the ED by EMS for hypoglycemia. The patient was going to accompany her daughter to [place] this morning, and was woken at 02:30. Her daughter found her to be confused, therefore called EMS. EMS checked the patient's blood glucose, finding it to be 50. Patient was given milk and peanut butter sandwich, and a recheck blood glucose was over 200, however, the patient's mental status, while improved, was not back to normal, therefore the patient's daughter requested that the patient be brought to the ED for evaluation. Here in the ED, the patient's mental status is completely normal, however, an initial Accu-Chek finds her blood glucose to be under 30. The patient's initial BP is found to be low at 102/42, otherwise, she is hemodynamically stable, afebrile, saturating 98% on room air. The patient's daughter tells me that this is the third time that the patient has had a hypoglycemic reaction over the past 4 years. The patient states that she ate a normal meal and took her usual amount of insulin last night. She denies any recent illnesses such as recent fever, chills, sore throat, ear pain, nasal or sinus congestion, cough, dyspnea, chest pain, palpitations, nausea, vomiting, constipation, diarrhea, abdominal pain, urinary symptoms, recent weight gain or weight loss, recent bloody bowel movements or black bowel movements, recent joint aches, headaches, or rashes. The patient's PCP is Dr. Man Ballesteros. She does not recall the name of her Factorer. Her Orthopedic Surgeon is Dr. Raoul Bryson. - Related Data Allergies Allergy/AdvReac Type Severity Reaction Status Date / Time No Known Allergies Allergy Verified 09/08/19 04:07 Home Meds: Home Meds Acetaminophen/HYDROcodone [[place] 325-5 MG] 1 tab PO Q12H 08/13/17 [History] Albuterol [Proventil Neb Soln] 1 dose NEB TID 08/13/17 [History] Aspirin [Halfprin] 81 mg PO DAILY 08/13/17 [History] Cranberry Fruit Concentrate [Azo Cranberry] 1 tab PO DAILY 08/13/17 [History] Ezetimibe [Zetia] 10 mg PO DAILY 08/13/17 [History] Furosemide [Lasix] 20 mg PO DAILY 08/13/17 [History] Gabapentin [Gralise] 600 mg PO BID 08/13/17 [History] Insulin Detemir [Levemir] 30 units SQ BEDTIME 08/13/17 [History] Isosorbide Mononitrate [Imdur] 30 mg PO DAILY 08/13/17 [History] Losartan [Cozaar] 50 mg PO DAILY 08/13/17 [History] Nitroglycerin [Nitrostat] 0.4 mg SL ASDIRECTED PRN 08/13/17 [History] Spironolactone [Aldactone] 25 mg PO QAM 08/13/17 [History] Tiotropium Br/Olodaterol HCl [Stiolto Respimat Inhal [employer]] 2 puff INH DAILY 08/13/17 [History] allopurinoL [Zyloprim] 100 mg PO BID 08/13/17 [History] amLODIPine Besylate [Norvasc] 10 mg PO DAILY 08/13/17 [History] atorvaSTATin [Lipitor] 40 mg PO DAILY 08/13/17 [History] Albuterol [Ventolin HFA] 2 puff INH Q6HR 05/19/19 [History] Denosumab [Prolia] 1 injection SQ ASDIRECTED 05/19/19 [History] Insulin Aspart [NovoLOG] 6 unit SQ DAILY 05/19/19 [History] Warfarin Sodium [Coumadin] 2 mg PO SUMOWETHSA 05/19/19 [History] Warfarin Sodium [Coumadin] 3 mg PO TUFR 05/19/19 [History] Benzonatate [Tessalon Perle] 100 mg PO TID #15 capsule 05/24/19 [Rx] guaiFENesin [Mucinex] 600 mg PO TID #15 tab.er 05/24/19 [Rx] Past Medical History HEENT History: Reports: Impaired Vision (wears glasses), Other (See Below) (Dentures) Cardiovascular History: Reports: CAD, High Cholesterol, Hypertension, [place] (2013) Respiratory History: Reports: COPD (PFT-proven, on 3L O2 continulusly), Sleep Apnea (untreated) Gastrointestinal History: Reports: GERD Genitourinary History: Reports: Diabetic Nephropathy, Renal Calculus Musculoskeletal History: Reports: Osteoarthritis, Osteoporosis Endocrine/Metabolic History: Reports: Diabetes, Type II, Obesity/BMI 30+ Dermatologic History: Reports: Eczema - Infectious Disease History Infectious Disease History: Reports: Chicken Pox, Measles - Past Surgical History HEENT Surgical History: Reports: Oral Surgery (Dental extractions) Cardiovascular Surgical History: Reports: Coronary Artery Stent (x 3, 2013), Other (See Below) (Coronary angiogram x 1, 2013) Female Surgical History: Reports: Hysterectomy (partial) Neurological Surgical History: Reports: Lumbar Spine (X STOP intraspinous spacer implantation) Musculoskeletal Surgical History: Reports: Arthroscopic Knee (bilateral), Shoulder Surgery (right, open) Social & Family History - Family History Family Medical History: Noncontributory - Tobacco Use Smoking Status *Q: Never Smoker - Caffeine Use Caffeine Use: Reports: None - Alcohol Use Alcohol Use History: No - Recreational Drug Use Recreational Drug Use: No - Living Situation & Occupation Living situation: Reports: , with Family (Daughter, her , stepdaughter, grand-daughter) Occupation: Retired ED ROS GENERAL - Review of Systems Review Of Systems: Comprehensive ROS is negative, except as noted in HPI. ED EXAM, GENERAL - Physical Exam Exam: See Below Exam Limited By: No Limitations General Appearance: Alert, WD/WN, No Apparent Distress Eye Exam: Bilateral Eye: EOMI, Normal Inspection Ears: Normal External Exam, Hearing Grossly Normal Nose: Normal Inspection Throat/Mouth: Normal Inspection, Normal Lips, Normal Voice, No Airway Compromise Head: Atraumatic, Normocephalic Neck: Normal Inspection, Full Range of Motion Respiratory/Chest: No Respiratory Distress, Lungs Clear, Normal Breath Sounds, No Accessory Muscle Use Cardiovascular: Normal Peripheral Pulses, Regular Rate, Rhythm, No Edema, No Gallop, No JVD, No Murmur, No Rub Peripheral Pulses: 3+: Radial (L), Radial (R) GI/Abdominal: Normal Bowel Sounds, Soft, Non-Tender, No Organomegaly, No Distention, No Abnormal Bruit, No Mass (Female) Exam: Deferred Rectal (Female) Exam: Deferred Back Exam: Normal Inspection, Full Range of Motion, NT Extremities: Normal Inspection, Normal Range of Motion, No Pedal Edema, Normal Capillary Refill Neurological: Alert, Oriented, Normal Cognition, No Motor/Sensory Deficits Psychiatric: Normal Affect Skin Exam: Warm, Dry, Intact, Normal Color, No Rash EKG INTERPRETATION EKG Date: 09/08/19 Time: 04:31 Rhythm: NSR Rate (Beats/Min): 86 [place]: Normal P-Wave: Present (1st degree AVB) QRS: Normal ST-T: Normal QT: Normal Comparison: Change From Previous EKG (1st degree AVB new since 06/03/2019) Course - Vital Signs Last Recorded V/S: Last Vital Signs Temp 36.3 C 09/08/19 04:02 Pulse 83 09/08/19 04:02 Resp 18 09/08/19 04:02 BP 102/42 L 09/08/19 04:02 Pulse Ox 98 09/08/19 04:02 - Orders/Labs/Meds Orders: Active Orders 24 hr Category Date Time Status EKG Documentation Completion [RC] STAT Care 09/08/19 04:29 Active Labs: Laboratory Tests 09/08/19 09/08/19 09/08/19 Range/Units 04:40 04:40 04:44 WBC 10.70 H (3.98-10.04) K/mm3 RBC 4.26 (3.98-5.22) M/mm3 Hgb 12.9 (11.2-15.7) gm/dl Hct 40.9 (34.1-44.9) % MCV 96.0 H (79.4-94.8) fl MCH 30.3 (25.6-32.2) pg MCHC 31.5 L (32.2-35.5) g/dl RDW Std Deviation 49.2 H (36.4-46.3) fL Plt Count 248 (182-369) K/mm3 MPV 9.6 (9.4-12.3) fl Neutrophils % (Manual) 75 H (40-60) % Band Neutrophils % 3 (0-10) % Lymphocytes % (Manual) 15 L (20-40) % Atypical Lymphs % 0 % Monocytes % (Manual) 7 (2-10) % Eosinophils % (Manual) 0 L (0.7-5.8) % Basophils % (Manual) 0 L (0.1-1.2) Platelet Estimate Adequate Plt Morphology Comment Normal Hypochromasia 1+ slight Anisocytosis 2+ moderate Ovalocytes 2+ moderate RBC Morph Comment Not Reportable Sodium 142 (136-145) mEq/L Potassium 3.3 L (3.5-5.1) mEq/L Chloride 102 (98-107) mEq/L Carbon Dioxide 33 H (21-32) mEq/L Anion Gap 10.3 (5-15) BUN 23 H (7-18) mg/dL Creatinine 1.2 H (0.55-1.02) mg/dL Est Cr Clr Drug Dosing TNP Estimated GFR (MDRD) 44 (>60) mL/min BUN/Creatinine Ratio 19.2 H (14-18) Glucose 87 (83-115) mg/dL POC Glucose 88 (83-110) mg/dL Calcium 10.0 (8.5-10.1) mg/dL Magnesium 1.9 (1.8-2.4) mg/dl Total Bilirubin 0.5 (0.2-1.0) mg/dL AST 41 H (15-37) U/L ALT 35 (14-59) U/L Alkaline Phosphatase 87 (46-116) U/L Troponin I < 0.017 (0.00-0.056) ng/mL Total Protein 7.1 (6.4-8.2) g/dl Albumin 3.2 L (3.4-5.0) g/dl Globulin 3.9 gm/dL Albumin/Globulin Ratio 0.8 L (1-2) Urine Color (Yellow) Urine Appearance (Clear) Urine pH (5.0-8.0) Ur Specific [place] (1.005-1.030) Urine Protein (Negative) Urine Glucose (UA) (Negative) Urine Ketones (Negative) Urine Occult Blood (Negative) Urine Nitrite (Negative) Urine Bilirubin (Negative) Urine Urobilinogen (0.2-1.0) Ur Leukocyte Esterase (Negative) U Hyaline Cast (Auto) (0-5) /lpf Urine RBC (0-5) /hpf Urine WBC (0-5) /hpf Ur Squamous Epith Cells (0-5) /hpf Urine Bacteria (FEW) /hpf Urine Mucus (FEW) /hpf 09/08/19 09/08/19 09/08/19 Range/Units 05:15 05:18 06:06 WBC (3.98-10.04) K/mm3 RBC (3.98-5.22) M/mm3 Hgb (11.2-15.7) gm/dl Hct (34.1-44.9) % MCV (79.4-94.8) fl MCH (25.6-32.2) pg MCHC (32.2-35.5) g/dl RDW Std Deviation (36.4-46.3) fL Plt Count (182-369) K/mm3 MPV (9.4-12.3) fl Neutrophils % (Manual) (40-60) % Band Neutrophils % (0-10) % Lymphocytes % (Manual) (20-40) % Atypical Lymphs % % Monocytes % (Manual) (2-10) % Eosinophils % (Manual) (0.7-5.8) % Basophils % (Manual) (0.1-1.2) Platelet Estimate Plt Morphology Comment Hypochromasia Anisocytosis Ovalocytes RBC Morph Comment Sodium (136-145) mEq/L Potassium (3.5-5.1) mEq/L Chloride (98-107) mEq/L Carbon Dioxide (21-32) mEq/L Anion Gap (5-15) BUN (7-18) mg/dL Creatinine (0.55-1.02) mg/dL Est Cr Clr Drug Dosing Estimated GFR (MDRD) (>60) mL/min BUN/Creatinine Ratio (14-18) Glucose (83-115) mg/dL POC Glucose 97 83 (83-110) mg/dL Calcium (8.5-10.1) mg/dL Magnesium (1.8-2.4) mg/dl Total Bilirubin (0.2-1.0) mg/dL AST (15-37) U/L ALT (14-59) U/L Alkaline Phosphatase (46-116) U/L Troponin I (0.00-0.056) ng/mL Total Protein (6.4-8.2) g/dl Albumin (3.4-5.0) g/dl Globulin gm/dL Albumin/Globulin Ratio (1-2) Urine Color Yellow (Yellow) Urine Appearance Clear (Clear) Urine pH 5.5 (5.0-8.0) Ur Specific [place] 1.025 (1.005-1.030) Urine Protein Negative (Negative) Urine Glucose (UA) Negative (Negative) Urine Ketones Negative (Negative) Urine Occult Blood Negative (Negative) Urine Nitrite Negative (Negative) Urine Bilirubin Negative (Negative) Urine Urobilinogen 0.2 (0.2-1.0) Ur Leukocyte Esterase Negative (Negative) U Hyaline Cast (Auto) 10-20 H (0-5) /lpf Urine RBC 0-5 (0-5) /hpf Urine WBC 0-5 (0-5) /hpf Ur Squamous Epith Cells 0-5 (0-5) /hpf Urine Bacteria Rare (FEW) /hpf Urine Mucus Few (FEW) /hpf Meds: Medications Discontinued Medications Generic Name Dose Route Start Last Admin Trade Name Freq PRN Reason Stop Dose Admin Dextrose/Water Confirm 09/08/19 04:08 09/08/19 04:12 Dextrose 50% In Water Administered 09/08/19 04:09 Not Given Dose 50 ml .ROUTE .STK-MED ONE Dextrose/Water 25 ml 09/08/19 04:11 09/08/19 04:12 Dextrose 50% In Water IVPUSH 09/08/19 04:12 25 ml ASDIRECTED STA Administration - Re-Assessments/Exams Free Text/Narrative Re-Assessment/Exam: 09/08/19 04:25 As above, the patient was confused when woken around 02:30 this morning. Her blood glucose was 50 when the paramedics arrived, but over 200 after she was given some milk and a peanut butter sandwich. Her mental status was not back to normal, however, therefore the patient was brought to the ED, where her initial blood glucose is under 30, although her mental status is now back to normal. I have ordered half an amp of D50, and we will keep a close eye on her blood glucose. If it continues to be low, we will need to start her on a dextrose drip. In the meantime, I have ordered a work-up that includes blood work, a urinalysis, and an ECG. 09/08/19 04:45 Notified by Mag IBRAHIM that the patient's blood glucose is 88. We will recheck it in half an hour. 09/08/19 05:27 Notified by Mag IBRAHIM that the patient's blood glucose is up to 97. 09/08/19 05:43 The patient's CBC is remarkable for a WBC count elevated at 10.70, but with only 3% bandemia. The remainder of her CBC is unremarkable. Her CMP is remarkable for a potassium slightly low at 3.3, with a bicarbonate slightly elevated at 33. Her BUN/Cr are elevated at 23/1.2, with the remainder of her CMP being unremarkable. Her magnesium level is within normal limits at 1.9. Her troponin is undetectably low. Her urinalysis is unremarkable. 09/08/19 06:08 Notified by Mag IBRAHIM that the patient's most recent Accu-Chek is 83. We will get her something to eat. 09/08/19 06:50 Test results discussed with the patient (her daughter is not currently present). I do not have an explanation as to why the patient became hypoglycemic. She ate a snack and is feeling well. I will discharge her home. I would like her to follow-up with Dr. Ballesteros. Departure - Departure Time of Disposition: 06:51 Disposition: Home, Self-Care 01 Condition: Good Clinical Impression: Hypoglycemic reaction - Discharge Information *PRESCRIPTION DRUG MONITORING PROGRAM REVIEWED*: Not Applicable *COPY OF PRESCRIPTION DRUG MONITORING REPORT IN PATIENT [place]: Not Applicable Instructions: Hypoglycemia, [id number] Referrals: Man Corbett MD [Primary Care Provider] - Raoul Bryson MD [Physician] - Forms: ED Department Discharge Additional Instructions: You were seen in the emergency room after you were found to be confused, and your blood glucose was found to be low. Work-up in the ER included blood work, a urinalysis, and an ECG. Other than mild renal insufficiency, the remainder of your work-up was unremarkable, and does not explain the cause of your hypoglycemia. We recommend that you continue to eat your usual diet and take your usual amount of insulin. We recommend that you follow-up with your PCP, Dr. Man Ballesteros, at the next available appointment. If any other problems, please do not hesitate to return to the ER. Sepsis Event Note (ED) - Evaluation Sepsis Screening Result: No Definite Risk - Focused Exam Vital Signs: Vital Signs Temp Pulse Resp BP Pulse Ox 09/08/19 04:02 36.3 C 83 18 102/42 L 98 - My Orders Last 24 Hours: My Active Orders 09/08/19 04:29 EKG Documentation Completion [RC] STAT - Assessment/Plan Last 24 Hours: My Active Orders 09/08/19 04:29 EKG Documentation Completion [RC] STAT
[2019-09-08 07:11] VITALS: BP 107/71; PULSE 75
== END 2019-09-08 07:10 | disposition home or self-care (01) ==
LOC: JD.ED 03:55
DX: E11.649 Type 2 diabetes mellitus with hypoglycemia without coma (principal); E66.9 Obesity, unspecified; E87.6 Hypokalemia; E11.21 Type 2 diabetes mellitus with diabetic nephropathy; M19.90 Unspecified osteoarthritis, unspecified site; I25.10 Atherosclerotic heart disease of native coronary artery without angina pectoris; E78.00 Pure hypercholesterolemia, unspecified; I10 Essential (primary) hypertension; I25.2 Old myocardial infarction; Z99.81 Dependence on supplemental oxygen; J44.9 Chronic obstructive pulmonary disease, unspecified; Z79.82 Long term (current) use of aspirin; Z79.899 Other long term (current) drug therapy; Z79.01 Long term (current) use of anticoagulants; Z79.4 Long term (current) use of insulin
CPT/HCPCS: 36415; 80053; 81001; 82962; 83735; 84484; 85007; 85027; 93005; 96374; 99285-25

== ENCOUNTER 2020-05-25 17:23 | Emergency (ER) | payer MEDICARE, OTHER ==
[2020-05-25] MEDS ORDERED: Sodium Chloride 0.9% 10 ML Syringe FLUSH PRN (17:37)
[2020-05-25] MEDS ORDERED: HYDROmorphone 0.5 MG/0.5 ML Syringe IVPUSH ONE (17:37)
--- NOTE | 2020-05-25 17:44 | EDM.PDOC ---
ED HPI GENERAL MEDICAL PROBLEM - General Chief Complaint: Trauma Stated Complaint: RT SHOULDER INJURY Time Seen by Provider: 05/25/20 17:29 Source of Information: Reports: Patient, RN Notes Reviewed - History of Present Illness INITIAL COMMENTS - FREE TEXT/NARRATIVE: 74 yr old female female fell a short time ago at home. Came down hard on R elbow and R shoulder. Has severe R upper arm and shoulder pain. Pain is worse with any type of motion of her R arm and shoulder. She is on some type of blood thinner. Not sure which one but "not coumadin". She denies hitting her head. No head, neck, back or chest pain. She denies hip or pelvic. pain. This was called a trauma alert due to fall and being on a blood thinner. Right Shoulder Pain Score (Numeric/FACES): 10 - Related Data Allergies Allergy/AdvReac Type Severity Reaction Status Date / Time No Known Allergies Allergy Verified 05/25/20 17:36 Home Meds: Home Meds Acetaminophen/HYDROcodone [[place] 325-5 MG] 1 tab PO Q12H 08/13/17 [History] Albuterol [Proventil Neb Soln] 1 dose NEB TID 08/13/17 [History] Aspirin [Halfprin] 81 mg PO DAILY 08/13/17 [History] Cranberry Fruit Concentrate [Azo Cranberry] 1 tab PO DAILY 08/13/17 [History] Ezetimibe [Zetia] 10 mg PO DAILY 08/13/17 [History] Furosemide [Lasix] 20 mg PO DAILY 08/13/17 [History] Gabapentin [Gralise] 600 mg PO BID 08/13/17 [History] Insulin Detemir [Levemir] 30 units SQ BEDTIME 08/13/17 [History] Isosorbide Mononitrate [Imdur] 30 mg PO DAILY 08/13/17 [History] Losartan [Cozaar] 50 mg PO DAILY 08/13/17 [History] Nitroglycerin [Nitrostat] 0.4 mg SL ASDIRECTED PRN 08/13/17 [History] Spironolactone [Aldactone] 25 mg PO QAM 08/13/17 [History] Tiotropium Br/Olodaterol HCl [Stiolto Respimat Inhal [place]] 2 puff INH DAILY 08/13/17 [History] allopurinoL [Zyloprim] 100 mg PO BID 08/13/17 [History] amLODIPine Besylate [Norvasc] 10 mg PO DAILY 08/13/17 [History] atorvaSTATin [Lipitor] 40 mg PO DAILY 08/13/17 [History] Albuterol [Ventolin HFA] 2 puff INH Q6HR 05/19/19 [History] Denosumab [Prolia] 1 injection SQ ASDIRECTED 05/19/19 [History] Insulin Aspart [NovoLOG] 6 unit SQ DAILY 05/19/19 [History] Warfarin Sodium [Coumadin] 2 mg PO SUMOWETHSA 05/19/19 [History] Warfarin Sodium [Coumadin] 3 mg PO TUFR 05/19/19 [History] Benzonatate [Tessalon Perle] 100 mg PO TID #15 capsule 05/24/19 [Rx] guaiFENesin [Mucinex] 600 mg PO TID #15 tab.er 05/24/19 [Rx] Past Medical History HEENT History: Reports: Impaired Vision (wears glasses), Other (See Below) (Dentures) Other HEENT History: Wears glasses Cardiovascular History: Reports: CAD, High Cholesterol, Hypertension, [place] (2013) Other Cardiovascular History: edema, hypotension Respiratory History: Reports: COPD (PFT-proven, on 3L O2 continulusly), Sleep Apnea (untreated) Other Respiratory History: restrictive lung disease, continuous O2 Gastrointestinal History: Reports: GERD Genitourinary History: Reports: Diabetic Nephropathy, Renal Calculus Other Genitourinary History: HX of Renal Insuff. 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 Musculoskeletal History: Reports: Osteoarthritis, Osteoporosis Neurological History: Reports: Other (See Below) Other Neuro History: back surgery Psychiatric History: Reports: None Endocrine/Metabolic History: Reports: Diabetes, Type II, Obesity/BMI 30+ Hematologic History: Reports: None Immunologic History: Reports: None Oncologic (Cancer) History: Reports: None Dermatologic History: Reports: Eczema Other Dermatologic History: eczema - Infectious Disease History Infectious Disease History: Reports: Chicken Pox, Measles - Past Surgical History HEENT Surgical History: Reports: Oral Surgery (Dental extractions) Cardiovascular Surgical History: Reports: Coronary Artery Stent (x 3, 2012), Other (See Below) (Coronary angiogram x 1, 2012) Female Surgical History: Reports: Hysterectomy (partial) Neurological Surgical History: Reports: Lumbar Spine (X STOP intraspinous spacer implantation) Musculoskeletal Surgical History: Reports: Arthroscopic Knee (bilateral), Shoulder Surgery (right, open) Social & Family History - Family History Family Medical History: No Pertinent Family History - Tobacco Use Tobacco Use Status *Q: Never Tobacco User Second Hand Smoke Exposure: No - Caffeine Use Caffeine Use: Reports: None - Recreational Drug Use Recreational Drug Use: No - Living Situation & Occupation Living situation: Reports: , with Family (Daughter, her , stepdaughter, grand-daughter) Occupation: Retired Review of Systems - Review of Systems Review Of Systems: See Below Ears: Reports: No Symptoms Nose: Reports: No Symptoms Mouth/Throat: Reports: No Symptoms Respiratory: Denies: Shortness of Breath Cardiovascular: Denies: Chest Pain GI/Abdominal: Denies: Abdominal Pain, Nausea Musculoskeletal: Reports: Shoulder Pain Skin: Reports: Other (has a small abrasion R post. elbow) Neurological: Denies: Numbness, Tingling, Weakness ED EXAM, GENERAL - Physical Exam Exam: See Below General Appearance: Alert, Moderate Distress Throat/Mouth: Normal Inspection Head: Atraumatic Neck: Non-Tender Respiratory/Chest: No Respiratory Distress, Lungs Clear, Normal Breath Sounds Cardiovascular: Regular Rate, Rhythm GI/Abdominal: Soft, Non-Tender Extremities: Arm Pain (R upper arm, small abrasion post. elbow, no swelling or deformity, no bony tenderness of the elbow), Limited Range of Motion (R shoulder), Other (tender R ant., superior, lateral and post. shoulder. No visible deformity) Neurological: Alert, Oriented, No Motor/Sensory Deficits Skin Exam: Warm, Dry, Normal Color Course - Vital Signs Last Recorded V/S: Last Vital Signs Temp 97.5 F 05/25/20 19:14 Pulse 65 05/25/20 19:14 Resp 18 05/25/20 19:14 BP 140/77 05/25/20 19:14 Pulse Ox 95 05/25/20 19:14 - Orders/Labs/Meds Orders: Active Orders 24 hr Category Date Time Status Peripheral IV Care [RC] . DIRECTED Care 05/25/20 17:38 Active Sodium Chloride 0.9% [Saline Flush] Med 05/25/20 17:37 Active 10 ml FLUSH ASDIRECTED PRN Durable Medical Equipment for Discharge [DME for Oth 05/25/20 18:40 Ordered Discharge] [COMM] Stat Peripheral IV Insertion Adult [OM.PC] Stat Oth 05/25/20 17:37 Ordered Labs: Laboratory Tests 05/25/20 05/25/20 Range/Units 17:45 17:45 WBC 11.69 H (3.98-10.04) K/mm3 RBC 4.43 (3.98-5.22) M/mm3 Hgb 13.4 D (11.2-15.7) gm/dl Hct 41.9 (34.1-44.9) % MCV 94.6 D (79.4-94.8) fl MCH 30.2 (25.6-32.2) pg MCHC 32.0 L (32.2-35.5) g/dl RDW Std Deviation 43.3 (36.4-46.3) fL Plt Count 303 (182-369) K/mm3 MPV 8.8 L (9.4-12.3) fl Neut % (Auto) 71.2 H (34.0-71.1) % Lymph % (Auto) 20.7 (19.3-51.7) % [place] % (Auto) 7.0 (4.7-12.5) % Eos % (Auto) 0.6 L (0.7-5.8) Baso % (Auto) 0.2 (0.1-1.2) % Neut # (Auto) 8.32 H (1.56-6.13) K/mm3 Lymph # (Auto) 2.42 (1.18-3.74) K/mm3 [place] # (Auto) 0.82 H (0.24-0.36) K/mm3 Eos # (Auto) 0.07 (0.04-0.36) K/mm3 Baso # (Auto) 0.02 (0.01-0.08) K/mm3 Sodium 140 (136-145) mEq/L Potassium 3.2 L (3.5-5.1) mEq/L Chloride 98 (98-107) mEq/L Carbon Dioxide 29 (21-32) mEq/L Anion Gap 16.2 H (5-15) BUN 20 H (7-18) mg/dL Creatinine 1.1 H (0.55-1.02) mg/dL Est Cr Clr Drug Dosing TNP Estimated GFR (MDRD) 48 (>60) mL/min BUN/Creatinine Ratio 18.2 H (14-18) Glucose 159 H (83-115) mg/dL Calcium 9.6 (8.5-10.1) mg/dL Total Bilirubin 0.6 (0.2-1.0) mg/dL AST 31 (15-37) U/L ALT 34 (14-59) U/L Alkaline Phosphatase 107 (46-116) U/L Total Protein 8.1 (6.4-8.2) g/dl Albumin 3.7 (3.4-5.0) g/dl Globulin 4.4 gm/dL Albumin/Globulin Ratio 0.8 L (1-2) - Re-Assessments/Exams Free Text/Narrative Re-Assessment/Exam: 05/25/20 18:54 Xrays show impacted fx neck of proximal humerus. Labs are good. Her daughter states that she does have very mild dementia so her daughter lives with her, will be able to provide the help and assistance she will need. Will treat with sling. Have given dilaudid 0.5 mg IV. That has really helped her pain. Will give a dose of tylenol as well. Departure - Departure Time of Disposition: 18:57 Disposition: Home, Self-Care 01 Condition: Fair Clinical Impression: Fall Qualifiers: Encounter type: initial encounter Qualified Code(s): W19.XXXA - Unspecified fall, initial encounter Fracture, humerus closed Qualifiers: Encounter type: initial encounter Humerus Location: surgical neck Fracture morphology: 2-part Fracture alignment: nondisplaced Laterality: right Qualified Code(s): S42.224A - 2-part nondisplaced fracture of surgical neck of right humerus, initial encounter for closed fracture - Discharge Information Instructions: Humerus Fracture Treated With Immobilization, [id number] Referrals: Man Corbett MD [Primary Care Provider] - Forms: ED Department Discharge Additional Instructions: Arm sling. Frequent ice packs R shoulder, protect shoulder with a towel under the ice pack. Tylenol 500 3 to 4 times daily. You may take 1/4 tablet hydrodone in between doses of tylenol on occasion if needed for severe pain. Be aware of the side effects of hydrocodone as discussed. See Dr Bryson or Anamaria Ambrose next week at [facility] here in [place]. Call for appointment Friday. Return to ED as needed. Sepsis Event Note (ED) - Evaluation Sepsis Screening Result: No Definite Risk - Focused Exam Vital Signs: Vital Signs Temp Pulse Resp BP Pulse Ox 05/25/20 19:14 97.5 F 65 18 140/77 95 05/25/20 17:35 97.5 F 66 17 166/72 H 98 - My Orders Last 24 Hours: My Active Orders 05/25/20 17:37 Sodium Chloride 0.9% [Saline Flush] 10 ml FLUSH ASDIRECTED PRN Peripheral IV Insertion Adult [OM.PC] Stat 05/25/20 17:38 Peripheral IV Care [RC] . DIRECTED 05/25/20 18:40 Durable Medical Equipment for Discharge [DME for Discharge] [COMM] Stat - Assessment/Plan Last 24 Hours: My Active Orders 05/25/20 17:37 Sodium Chloride 0.9% [Saline Flush] 10 ml FLUSH ASDIRECTED PRN Peripheral IV Insertion Adult [OM.PC] Stat 05/25/20 17:38 Peripheral IV Care [RC] . DIRECTED 05/25/20 18:40 Durable Medical Equipment for Discharge [DME for Discharge] [COMM] Stat
--- NOTE | 2020-05-25 18:14 | CR ---
Right shoulder: 3 views right shoulder were obtained. Impacted fracture within the neck of the proximal humerus is seen. Degenerative change is seen within the glenohumeral joint. Degenerative change is seen within the acromioclavicular joints. Osteopenia is seen. Impression: 1. Impacted fracture within the neck of the proximal humerus. 2. Osteopenia and degenerative change. Diagnostic code #3
[2020-05-25] MEDS ORDERED: Acetaminophen 325 MG Tab PO ONE (18:39)
[2020-05-25 19:15] VITALS: BP 140/77; PULSE 65
== END 2020-05-25 19:20 | disposition home or self-care (01) ==
LOC: JD.ED 17:23
DX: S42.224A 2-part nondisplaced fracture of surgical neck of right humerus, initial encounter for closed fracture (principal); I25.10 Atherosclerotic heart disease of native coronary artery without angina pectoris; E78.00 Pure hypercholesterolemia, unspecified; I10 Essential (primary) hypertension; J44.9 Chronic obstructive pulmonary disease, unspecified; E11.21 Type 2 diabetes mellitus with diabetic nephropathy; E66.9 Obesity, unspecified; M19.90 Unspecified osteoarthritis, unspecified site; Z79.82 Long term (current) use of aspirin; Z79.01 Long term (current) use of anticoagulants; Z79.4 Long term (current) use of insulin; W19.XXXA Unspecified fall, initial encounter; Y92.009 Unspecified place in unspecified non-institutional (private) residence as the place of occurrence of the external cause
CPT/HCPCS: 36415; 73030; 80053; 85025; 96374; 99284; A9270; J1170; 99283

== ENCOUNTER 2021-10-18 11:42 | Emergency (ER) | payer MEDICARE, OTHER ==
[2021-10-18 11:58] VITALS: BP 117/105; PULSE 103
[2021-10-18] MEDS ORDERED: Sodium Chloride 0.9% 10 ML Syringe FLUSH PRN (12:09)
[2021-10-18 13:07] LABS: HEMOGLOBIN A1C 5.5 %
[2021-10-18 13:09] LABS: ESTIMATED GFR 65 mL/min (>60)
[2021-10-18] MEDS ORDERED: Cefdinir 300 MG Cap PO ONE (14:12)
== END 2021-10-18 14:40 | disposition home or self-care (01) ==
LOC: JD.ED 11:42 → SUPCPDRO 11:42 → JD.ED 14:40
DX: E11.649 Type 2 diabetes mellitus with hypoglycemia without coma (principal); N39.0 Urinary tract infection, site not specified; I25.10 Atherosclerotic heart disease of native coronary artery without angina pectoris; J44.9 Chronic obstructive pulmonary disease, unspecified; I10 Essential (primary) hypertension; I25.2 Old myocardial infarction; E66.9 Obesity, unspecified; Z68.30 Body mass index [BMI] 30.0-30.9, adult; Z79.899 Other long term (current) drug therapy; Z79.82 Long term (current) use of aspirin; Z79.4 Long term (current) use of insulin; Z79.01 Long term (current) use of anticoagulants
CPT/HCPCS: 36415; 80053; 81001; 82947; 83036; 83605; 83735; 85025; 86140; 87086; 87088; 87186; 99284; A9270; J3490

== ENCOUNTER 2022-05-04 21:32 | Emergency (ER) | payer MEDICARE, OTHER ==
[2022-05-05 00:52] LABS: ESTIMATED GFR 46 mL/min (>60)
[2022-05-05] MEDS ORDERED: Cefdinir 300 MG Cap PO ONE (02:37)
[2022-05-05 03:08] VITALS: BP 135/74; PULSE 85
== END 2022-05-05 03:00 | disposition home or self-care (01) ==
LOC: JD.ED 21:32
DX: N39.0 Urinary tract infection, site not specified (principal); R31.9 Hematuria, unspecified; I25.10 Atherosclerotic heart disease of native coronary artery without angina pectoris; E78.00 Pure hypercholesterolemia, unspecified; I10 Essential (primary) hypertension; I25.2 Old myocardial infarction; J44.9 Chronic obstructive pulmonary disease, unspecified; E11.21 Type 2 diabetes mellitus with diabetic nephropathy; E66.9 Obesity, unspecified; Z68.28 Body mass index [BMI] 28.0-28.9, adult; Z77.22 Contact with and (suspected) exposure to environmental tobacco smoke (acute) (chronic); Z79.82 Long term (current) use of aspirin; Z79.4 Long term (current) use of insulin; Z79.899 Other long term (current) drug therapy
CPT/HCPCS: 36415; 74176; 80053; 81001; 83690; 83735; 85025; 86140; 99284; A9270

== ENCOUNTER 2022-10-09 07:01 | Day surgery (SDC) | payer MEDICARE, OTHER ==
[~2022-10-09 07:01] MED LIST: Lactated Ringers 1,000 ML IV SCH; Sodium Chloride 0.9% 10 ML Syringe FLUSH PRN; Sodium Chloride 0.9% 10 ML Syringe FLUSH SCH
[2022-10-09] MEDS ORDERED: Propofol 200 MG/20 ML SDV ONE ×2 (07:21→09:34)
[2022-10-09] MEDS ORDERED: Lidocaine 1% 4 ML ONE (07:23)
[2022-10-09] MEDS ORDERED: 50% Dextrose in Water 50 ML Syringe IVPUSH ONE (08:02)
[2022-10-09] MEDS ORDERED: Bupivacaine 0.5% 30 ML SDV ONE (09:46)
[2022-10-09 11:07] VITALS: BP 138/78; PULSE 70
== END 2022-10-09 10:50 | disposition home or self-care (01) ==
LOC: JD.SDS 07:01
PROVIDERS: ATTEND Surgery
DX: D12.3 Benign neoplasm of transverse colon (principal); K21.9 Gastro-esophageal reflux disease without esophagitis; K29.80 Duodenitis without bleeding; K31.89 Other diseases of stomach and duodenum; K29.50 Unspecified chronic gastritis without bleeding; K44.9 Diaphragmatic hernia without obstruction or gangrene; K57.30 Diverticulosis of large intestine without perforation or abscess without bleeding; K64.4 Residual hemorrhoidal skin tags; K64.8 Other hemorrhoids; Z53.09 Procedure and treatment not carried out because of other contraindication; M15.9 Polyosteoarthritis, unspecified; E78.00 Pure hypercholesterolemia, unspecified; I25.119 Atherosclerotic heart disease of native coronary artery with unspecified angina pectoris; M54.50 Low back pain, unspecified; G89.29 Other chronic pain; I11.0 Hypertensive heart disease with heart failure; I50.9 Heart failure, unspecified; E11.21 Type 2 diabetes mellitus with diabetic nephropathy; M81.0 Age-related osteoporosis without current pathological fracture; I25.2 Old myocardial infarction; E66.9 Obesity, unspecified; Z79.01 Long term (current) use of anticoagulants; Z90.710 Acquired absence of both cervix and uterus; Z98.890 Other specified postprocedural states; Z79.4 Long term (current) use of insulin; Z79.899 Other long term (current) drug therapy; Z91.040 Latex allergy status; Z68.30 Body mass index [BMI] 30.0-30.9, adult
CPT/HCPCS: 43239; 45380; 46221; 82947; J2704; J3490; J7120

== ENCOUNTER 2023-03-15 13:10 | Emergency (ER) | payer MEDICARE, OTHER ==
[2023-03-15 13:21] VITALS: PULSE 78
[2023-03-15] MEDS ORDERED: Sodium Chloride 0.9% 10 ML Syringe FLUSH PRN ×2 (13:32→14:05)
[2023-03-15] MEDS ORDERED: Sodium Chloride 0.9% 1,000 ML IV STA (13:33)
[2023-03-15] MEDS ORDERED: Ondansetron 4 MG/2 ML SDV IVPUSH ONE (13:33)
[2023-03-15] MEDS ORDERED: HYDROmorphone 0.5 MG/0.5 ML Syringe IVPUSH ONE (13:33)
[2023-03-15 13:58] LABS: BASOPHILS ABSOLUTE AUTO 0.1 K/mm3 (0.0-0.2); BASOPHILS PERCENT AUTO 0.5 % (0.0-1.0); EOSINOPHILS ABSOLUTE AUTO 0.1 K/mm3 (0.0-0.4); EOSINOPHILS PERCENT AUTO 1.2 % (0.0-6.0); HEMATOCRIT 36.5 % (37.0-47.0); HEMOGLOBIN 12.4 gm/dl (12.0-16.0); IMMATURE GRAN ABSOLUTE AUTO 0.02 K/mm3 (0.00-0.05); IMMATURE GRAN PERCENT AUTO 0.2 % (0.0-0.4); LYMPHOCYTES ABSOLUTE AUTO 1.7 K/mm3 (1.0-4.8); LYMPHOCYTES PERCENT AUTO 15.7 % (24.0-44.0); MEAN CORPUSCULAR HEMOGLOBIN 30.8 pg (28.0-32.0); MEAN CORPUSCULAR VOLUME 90.6 fl (83.0-99.0); MEAN PLATELET VOLUME 8.8 fl (9.4-12.3); MONOCYTES ABSOLUTE AUTO 0.7 K/mm3 (0.0-0.8); MONOCYTES PERCENT AUTO 6.7 % (0.0-8.0); NEUTROPHILS ABSOLUTE AUTO 8.4 K/mm3 (1.8-7.7); NEUTROPHILS PERCENT AUTO 75.7 % (41.0-71.0); PLATELET COUNT,PLT 261 K/mm3 (150-400); RED BLOOD CELL COUNT 4.03 M/mm3 (4.10-5.30); WHITE BLOOD CELL COUNT,WBC 11.08 K/mm3 (3.9-11.3)
[2023-03-15 14:00] LABS: APPEARANCE,URINE SLT CLOUDY (Clear); BILIRUBIN,URINE NEGATIVE (Negative); COLOR,URINE LIGHT YELLOW (Yellow); GLUCOSE,URINE NEGATIVE (Negative); KETONES,URINE NEGATIVE (Negative); LEUKOCYTE ESTERASE,URINE TRACE (Negative); NITRITE,URINE POSITIVE (Negative); OCCULT BLOOD,URINE TRACE-LYSED (Negative); PROTEIN,URINE NEGATIVE (Negative); UROBILINOGEN,URINE 0.2 (0.2-1.0)
[2023-03-15] MEDS ORDERED: Iopamidol 612 MG/ML 100 ML Bottle IVPUSH ONE (14:05)
[2023-03-15 14:17] LABS: BACTERIA,URINE MANY /hpf (FEW); MUCUS,URINE FEW /hpf (FEW); RBC,URINE 0-5 /hpf (0-5); SQUAMOUS EPITHELIAL CELLS,UR 0-5 /hpf (0-5)
[2023-03-15 14:22] LABS: A/G RATIO 0.8 (1-2); ALANINE AMINOTRANSFERASE,ALT 26 U/L (14-59); ALBUMIN 3.6 g/dl (3.4-5.0); ALKALINE PHOSPHATASE 113 U/L (46-116); ANION GAP 10.9 (5-15); ASPARTATE AMNIOTRANSFERASE,AST 33 U/L (15-37); BILIRUBIN TOTAL 0.8 mg/dL (0.2-1.0); BLOOD UREA NITROGEN,BUN 14 mg/dL (7-18); C-REACTIVE PROTEIN < 0.2 mg/dL (<1.0); CALCIUM 9.6 mg/dL (8.5-10.1); CARBON DIOXIDE,CO2 27 mEq/L (21-32); CHLORIDE,CL 102 mEq/L (98-107); EST CRCL DRUG DOSING (CG) 32.77 mL/min; ESTIMATED GFR 57 mL/min (>60); GLUCOSE RANDOM 96 mg/dL (70-99); POTASSIUM,K 3.9 mEq/L (3.5-5.1); PROTEIN TOTAL,TP 8.3 g/dl (6.4-8.2); SODIUM,NA 136 mEq/L (136-145)
[2023-03-15] MEDS ORDERED: cefTRIAXone 2 GM in Sodium Chloride 0.9% 100 ML IV ONE (16:45)
[2023-03-15 17:39] VITALS: BP 122/78
== END 2023-03-15 17:35 | disposition home or self-care (01) ==
LOC: JD.ED 13:10
DX: N39.0 Urinary tract infection, site not specified (principal); D13.6 Benign neoplasm of pancreas; I10 Essential (primary) hypertension; I25.2 Old myocardial infarction; J44.9 Chronic obstructive pulmonary disease, unspecified; M19.90 Unspecified osteoarthritis, unspecified site; E11.9 Type 2 diabetes mellitus without complications; E66.9 Obesity, unspecified; Z68.29 Body mass index [BMI] 29.0-29.9, adult; Z86.16 Personal history of COVID-19; Z79.82 Long term (current) use of aspirin
CPT/HCPCS: 36415; 74177; 80053; 81001; 82947; 85025; 86140; 87086; 87088; 87186; 96365; 96375; 99284; J0696; J1170; J2405; J3490; J7030

== ENCOUNTER 2023-06-21 00:50 | Emergency (ER) | payer MEDICARE, OTHER ==
[2023-06-21 01:18] LABS: BASOPHILS ABSOLUTE AUTO 0.1 K/mm3 (0.0-0.2); BASOPHILS PERCENT AUTO 0.7 % (0.0-1.0); EOSINOPHILS ABSOLUTE AUTO 0.4 K/mm3 (0.0-0.4); EOSINOPHILS PERCENT AUTO 3.6 % (0.0-6.0); HEMATOCRIT 35.4 % (37.0-47.0); HEMOGLOBIN 11.7 gm/dl (12.0-16.0); IMMATURE GRAN ABSOLUTE AUTO 0.04 K/mm3 (0.00-0.05); IMMATURE GRAN PERCENT AUTO 0.4 % (0.0-0.4); LYMPHOCYTES ABSOLUTE AUTO 2.8 K/mm3 (1.0-4.8); LYMPHOCYTES PERCENT AUTO 28.4 % (24.0-44.0); MEAN CORPUSCULAR HEMOGLOBIN 30.5 pg (28.0-32.0); MEAN CORPUSCULAR HGB CONC 33.1 g/dl (32.0-36.0); MEAN CORPUSCULAR VOLUME 92.4 fl (83.0-99.0); MEAN PLATELET VOLUME 8.6 fl (9.4-12.3); MONOCYTES ABSOLUTE AUTO 0.8 K/mm3 (0.0-0.8); NEUTROPHILS ABSOLUTE AUTO 5.7 K/mm3 (1.8-7.7); NEUTROPHILS PERCENT AUTO 58.9 % (41.0-71.0); PLATELET COUNT,PLT 290 K/mm3 (150-400); RED BLOOD CELL COUNT 3.83 M/mm3 (4.10-5.30); WHITE BLOOD CELL COUNT,WBC 9.69 K/mm3 (3.9-11.3)
[2023-06-21] MEDS: Aspirin 81 MG Tab.Chew PO ONE (01:36)
[2023-06-21 01:48] LABS: INR 1.03
[2023-06-21 01:49] LABS: PTT,PARTIAL THROMBOPLSTIN TIME 25.4 SECONDS (21.7-31.4)
[2023-06-21 01:53] LABS: D-DIMER QUANTITATIVE 1.62 mg/L (0.19-0.50)
[2023-06-21 01:59] LABS: A/G RATIO 0.7 (1-2); ALBUMIN 3.2 g/dl (3.4-5.0); ANION GAP 12.8 (5-15); BILIRUBIN TOTAL 0.4 mg/dL (0.2-1.0); BUN/CREATININE RATIO 19.1 (14-18); CALCIUM 10.1 mg/dL (8.5-10.1); CREATININE 1.1 mg/dL (0.55-1.02); EST CRCL DRUG DOSING (CG) 29.79 mL/min; MAGNESIUM 1.7 mg/dL (1.8-2.4); POTASSIUM,K 3.8 mEq/L (3.5-5.1); PROTEIN TOTAL,TP 7.5 g/dl (6.4-8.2)
[2023-06-21 02:14] LABS: APPEARANCE,URINE SLT CLOUDY (Clear); BILIRUBIN,URINE NEGATIVE (Negative); COLOR,URINE LIGHT YELLOW (Yellow); GLUCOSE,URINE NEGATIVE (Negative); KETONES,URINE NEGATIVE (Negative); LEUKOCYTE ESTERASE,URINE 2+ (Negative); NITRITE,URINE POSITIVE (Negative); OCCULT BLOOD,URINE TRACE-LYSED (Negative); PH,URINE 6.5 (5.0-8.0); PROTEIN,URINE NEGATIVE (Negative); UROBILINOGEN,URINE 0.2 (0.2-1.0)
[2023-06-21] MEDS: Iopamidol 755 Mg/ML 100 ML Bottle IVPUSH ONE (02:20)
[2023-06-21] MEDS ORDERED: Sodium Chloride 0.9% 100 ML IV SCH (02:30)
[2023-06-21] MEDS: Sodium Chloride 0.9% 10 ML Syringe FLUSH PRN (02:36)
[2023-06-21 02:45] LABS: BACTERIA,URINE MANY /hpf (FEW); HYALINE CASTS,URINE 0-5 /lpf (0-5); MUCUS,URINE FEW /hpf (FEW); WBC,URINE 20-30 /hpf (0-5)
[2023-06-21] MEDS: cefTRIAXone 1 GM in Sodium Chloride 0.9% 100 ML IV ONE (05:15)
[2023-06-21 06:01] VITALS: BP 105/75; PULSE 77
== END 2023-06-21 05:55 | disposition home or self-care (01) ==
LOC: JD.ED 00:50
DX: R07.89 Other chest pain (principal); N39.0 Urinary tract infection, site not specified; I13.0 Hypertensive heart and chronic kidney disease with heart failure and stage 1 through stage 4 chronic kidney disease, or unspecified chronic kidney disease; I50.9 Heart failure, unspecified; N18.9 Chronic kidney disease, unspecified; I25.10 Atherosclerotic heart disease of native coronary artery without angina pectoris; I25.2 Old myocardial infarction; E11.22 Type 2 diabetes mellitus with diabetic chronic kidney disease; K21.9 Gastro-esophageal reflux disease without esophagitis; M19.90 Unspecified osteoarthritis, unspecified site; Z79.82 Long term (current) use of aspirin; Z79.51 Long term (current) use of inhaled steroids; Z79.899 Other long term (current) drug therapy; Z86.16 Personal history of COVID-19; Z95.5 Presence of coronary angioplasty implant and graft
CPT/HCPCS: 36415; 71045; 71275; 80053; 81001; 83690; 83735; 84484; 85025; 85379; 85610; 85730; 87086; 87088; 87186; 93005; 96365; 99285; A9270; J0696; J3490; Q9967; 93010; 99284

== ENCOUNTER 2023-06-26 15:35 | Emergency (ER) | payer MEDICARE, OTHER ==
[2023-06-26 16:37] LABS: BASOPHILS ABSOLUTE AUTO 0.1 K/mm3 (0.0-0.2); BASOPHILS PERCENT AUTO 0.6 % (0.0-1.0); EOSINOPHILS ABSOLUTE AUTO 0.2 K/mm3 (0.0-0.4); EOSINOPHILS PERCENT AUTO 1.4 % (0.0-6.0); HEMATOCRIT 35.9 % (37.0-47.0); HEMOGLOBIN 11.8 gm/dl (12.0-16.0); IMMATURE GRAN ABSOLUTE AUTO 0.04 K/mm3 (0.00-0.05); IMMATURE GRAN PERCENT AUTO 0.4 % (0.0-0.4); LYMPHOCYTES ABSOLUTE AUTO 2.4 K/mm3 (1.0-4.8); MEAN CORPUSCULAR HEMOGLOBIN 30.4 pg (28.0-32.0); MEAN CORPUSCULAR HGB CONC 32.9 g/dl (32.0-36.0); MEAN CORPUSCULAR VOLUME 92.5 fl (83.0-99.0); MEAN PLATELET VOLUME 9.2 fl (9.4-12.3); MONOCYTES ABSOLUTE AUTO 0.9 K/mm3 (0.0-0.8); MONOCYTES PERCENT AUTO 7.9 % (0.0-8.0); NEUTROPHILS ABSOLUTE AUTO 7.4 K/mm3 (1.8-7.7); NEUTROPHILS PERCENT AUTO 67.7 % (41.0-71.0); PLATELET COUNT,PLT 301 K/mm3 (150-400); RED BLOOD CELL COUNT 3.88 M/mm3 (4.10-5.30); WHITE BLOOD CELL COUNT,WBC 10.88 K/mm3 (3.9-11.3)
[2023-06-26 16:42] LABS: INR 1.03
[2023-06-26] MEDS: Aspirin 81 MG Tab.Chew PO ONE (16:44)
[2023-06-26] MEDS: Sodium Chloride 0.9% 10 ML Syringe FLUSH PRN (16:44)
[2023-06-26 16:50] LABS: A/G RATIO 0.8 (1-2); ALBUMIN 3.3 g/dl (3.4-5.0); BILIRUBIN TOTAL 0.4 mg/dL (0.2-1.0); CALCIUM 9.3 mg/dL (8.5-10.1); D-DIMER QUANTITATIVE 1.3 mg/L (0.19-0.50); EST CRCL DRUG DOSING (CG) 32.77 mL/min; MAGNESIUM 1.8 mg/dL (1.8-2.4); PROTEIN TOTAL,TP 7.6 g/dl (6.4-8.2)
[2023-06-26] MEDS: Iopamidol 755 Mg/ML 100 ML Bottle IVPUSH ONE (17:25)
[2023-06-26] MEDS ORDERED: Sodium Chloride 0.9% 100 ML IV SCH (17:30)
[2023-06-26] MEDS: Sodium Chloride 0.9% 1,000 ML IV SCH (17:46)
[2023-06-26 20:42] VITALS: BP 139/71; PULSE 89
== END 2023-06-26 20:08 | disposition home or self-care (01) ==
LOC: JD.ED 15:35
DX: K86.2 Cyst of pancreas (principal); R07.89 Other chest pain; I13.10 Hypertensive heart and chronic kidney disease without heart failure, with stage 1 through stage 4 chronic kidney disease, or unspecified chronic kidney disease; N18.9 Chronic kidney disease, unspecified; I50.9 Heart failure, unspecified; I25.10 Atherosclerotic heart disease of native coronary artery without angina pectoris; I25.2 Old myocardial infarction; E78.00 Pure hypercholesterolemia, unspecified; I48.91 Unspecified atrial fibrillation; K21.9 Gastro-esophageal reflux disease without esophagitis; E11.9 Type 2 diabetes mellitus without complications; Z86.16 Personal history of COVID-19; Z95.5 Presence of coronary angioplasty implant and graft; Z90.710 Acquired absence of both cervix and uterus; Z79.82 Long term (current) use of aspirin; Z79.51 Long term (current) use of inhaled steroids; Z79.899 Other long term (current) drug therapy
CPT/HCPCS: 36415; 71045; 71275; 80053; 83735; 84484; 85025; 85379; 85610; 93005; 96360; 96361; 99285; A9270; J3490; J7030; Q9967; 93010; 99284

== ENCOUNTER 2023-09-13 10:15 | Emergency (ER) | payer MEDICARE, OTHER ==
[2023-09-13] MEDS: Sodium Chloride 0.9% 10 ML Syringe FLUSH PRN (11:15)
[2023-09-13 11:36] LABS: BASOPHILS PERCENT AUTO 0.4 % (0.0-1.0); EOSINOPHILS ABSOLUTE AUTO 0.2 K/mm3 (0.0-0.4); EOSINOPHILS PERCENT AUTO 1.7 % (0.0-6.0); HEMOGLOBIN 12.4 gm/dl (12.0-16.0); IMMATURE GRAN ABSOLUTE AUTO 0.08 K/mm3 (0.00-0.05); IMMATURE GRAN PERCENT AUTO 0.9 % (0.0-0.4); LYMPHOCYTES ABSOLUTE AUTO 1.4 K/mm3 (1.0-4.8); LYMPHOCYTES PERCENT AUTO 15.6 % (24.0-44.0); MEAN CORPUSCULAR HEMOGLOBIN 30.6 pg (28.0-32.0); MEAN CORPUSCULAR HGB CONC 33.5 g/dl (32.0-36.0); MEAN CORPUSCULAR VOLUME 91.4 fl (83.0-99.0); MEAN PLATELET VOLUME 8.9 fl (9.4-12.3); MONOCYTES ABSOLUTE AUTO 0.6 K/mm3 (0.0-0.8); MONOCYTES PERCENT AUTO 7.1 % (0.0-8.0); NEUTROPHILS ABSOLUTE AUTO 6.7 K/mm3 (1.8-7.7); NEUTROPHILS PERCENT AUTO 74.3 % (41.0-71.0); PLATELET COUNT,PLT 280 K/mm3 (150-400); RED BLOOD CELL COUNT 4.05 M/mm3 (4.10-5.30); WHITE BLOOD CELL COUNT,WBC 8.99 K/mm3 (3.9-11.3)
[2023-09-13 11:52] LABS: A/G RATIO 0.9 (1-2); ALBUMIN 3.5 g/dl (3.4-5.0); ANION GAP 14.3 (5-15); BILIRUBIN TOTAL 0.5 mg/dL (0.2-1.0); BUN/CREATININE RATIO 21.4 (14-18); CALCIUM 9.7 mg/dL (8.5-10.1); CREATININE 1.4 mg/dL (0.55-1.02); EST CRCL DRUG DOSING (CG) 23.02 mL/min; POTASSIUM,K 4.3 mEq/L (3.5-5.1); PROTEIN TOTAL,TP 7.5 g/dl (6.4-8.2)
[2023-09-13 12:07] LABS: INR 1.02; PROTHROMBIN TIME 10.9 SECONDS (9.7-12.0)
[2023-09-13 12:08] LABS: PTT,PARTIAL THROMBOPLSTIN TIME 30.2 SECONDS (21.7-31.4)
[2023-09-13 13:59] LABS: APPEARANCE,URINE CLEAR (Clear); BILIRUBIN,URINE NEGATIVE (Negative); COLOR,URINE YELLOW (Yellow); GLUCOSE,URINE NEGATIVE (Negative); KETONES,URINE NEGATIVE (Negative); LEUKOCYTE ESTERASE,URINE 1+ (Negative); NITRITE,URINE POSITIVE (Negative); OCCULT BLOOD,URINE TRACE-INTACT (Negative); PROTEIN,URINE TRACE (Negative); UROBILINOGEN,URINE 0.2 (0.2-1.0)
[2023-09-13 14:24] LABS: BACTERIA,URINE MANY /hpf (FEW); EPITHELIAL CELLS,URINE 0-5 /hpf (0-5); MUCUS,URINE FEW /hpf (FEW)
[2023-09-13 15:12] VITALS: BP 127/69; PULSE 82
== END 2023-09-13 14:41 | disposition home or self-care (01) ==
LOC: JD.ED 10:15
DX: I20.9 Angina pectoris, unspecified (principal); N39.0 Urinary tract infection, site not specified; R31.9 Hematuria, unspecified; I11.0 Hypertensive heart disease with heart failure; I50.9 Heart failure, unspecified; I25.2 Old myocardial infarction; K21.9 Gastro-esophageal reflux disease without esophagitis; E78.00 Pure hypercholesterolemia, unspecified; E11.9 Type 2 diabetes mellitus without complications; Z86.16 Personal history of COVID-19; Z90.710 Acquired absence of both cervix and uterus; Z95.5 Presence of coronary angioplasty implant and graft; Z79.82 Long term (current) use of aspirin; Z79.899 Other long term (current) drug therapy
CPT/HCPCS: 36415; 71045; 80053; 81001; 83735; 83880; 84484; 85025; 85610; 85730; 87086; 93005; 94762; 99285; J3490; 87088; 87186; 93010; 99283

== ENCOUNTER 2023-10-31 11:53 | Emergency (ER) | payer MEDICARE, OTHER ==
[2023-10-31] MEDS ORDERED: Sodium Chloride 0.9% 10 ML Syringe FLUSH PRN (13:17)
[2023-10-31 14:34] LABS: BASOPHILS ABSOLUTE AUTO 0.1 K/mm3 (0.0-0.2); BASOPHILS PERCENT AUTO 0.5 % (0.0-1.0); EOSINOPHILS ABSOLUTE AUTO 0.1 K/mm3 (0.0-0.4); HEMATOCRIT 36.3 % (37.0-47.0); HEMOGLOBIN 12.2 gm/dl (12.0-16.0); IMMATURE GRAN ABSOLUTE AUTO 0.04 K/mm3 (0.00-0.05); IMMATURE GRAN PERCENT AUTO 0.4 % (0.0-0.4); LYMPHOCYTES ABSOLUTE AUTO 2.2 K/mm3 (1.0-4.8); MEAN CORPUSCULAR HEMOGLOBIN 30.9 pg (28.0-32.0); MEAN CORPUSCULAR HGB CONC 33.6 g/dl (32.0-36.0); MEAN CORPUSCULAR VOLUME 91.9 fl (83.0-99.0); MEAN PLATELET VOLUME 9.4 fl (9.4-12.3); MONOCYTES ABSOLUTE AUTO 0.8 K/mm3 (0.0-0.8); MONOCYTES PERCENT AUTO 7.9 % (0.0-8.0); NEUTROPHILS ABSOLUTE AUTO 6.8 K/mm3 (1.8-7.7); NEUTROPHILS PERCENT AUTO 68.2 % (41.0-71.0); PLATELET COUNT,PLT 270 K/mm3 (150-400); RED BLOOD CELL COUNT 3.95 M/mm3 (4.10-5.30); WHITE BLOOD CELL COUNT,WBC 10.01 K/mm3 (3.9-11.3)
[2023-10-31 15:03] LABS: A/G RATIO 0.9 (1-2); ALANINE AMINOTRANSFERASE,ALT 21 U/L (14-59); ALBUMIN 3.4 g/dl (3.4-5.0); ALKALINE PHOSPHATASE 77 U/L (46-116); ANION GAP 14.4 (5-15); ASPARTATE AMNIOTRANSFERASE,AST 38 U/L (15-37); BILIRUBIN TOTAL 0.6 mg/dL (0.2-1.0); BLOOD UREA NITROGEN,BUN 20 mg/dL (7-18); BUN/CREATININE RATIO 16.7 (14-18); CALCIUM 9.1 mg/dL (8.5-10.1); CARBON DIOXIDE,CO2 24 mEq/L (21-32); CHLORIDE,CL 104 mEq/L (98-107); CREATININE 1.2 mg/dL (0.55-1.02); EST CRCL DRUG DOSING (CG) 26.86 mL/min; ESTIMATED GFR 46 mL/min (>60); GLUCOSE RANDOM 100 mg/dL (70-99); LIPASE 41 U/L (16-77); MAGNESIUM 1.7 mg/dL (1.8-2.4); POTASSIUM,K 3.4 mEq/L (3.5-5.1); PROTEIN TOTAL,TP 7.1 g/dl (6.4-8.2); SODIUM,NA 139 mEq/L (136-145); TROPONIN I HIGH SENSITIVITY 8 pg/mL (<=51)
[2023-10-31 15:10] LABS: APPEARANCE,URINE CLEAR (Clear); BILIRUBIN,URINE NEGATIVE (Negative); COLOR,URINE YELLOW (Yellow); GLUCOSE,URINE NEGATIVE (Negative); KETONES,URINE TRACE (Negative); LEUKOCYTE ESTERASE,URINE TRACE (Negative); NITRITE,URINE NEGATIVE (Negative); OCCULT BLOOD,URINE NEGATIVE (Negative); PROTEIN,URINE NEGATIVE (Negative); UROBILINOGEN,URINE 0.2 (0.2-1.0)
[2023-10-31 15:10] LABS: LACTIC ACID 1.3 mmol/L (0.4-2.0)
[2023-10-31 15:25] LABS: C-REACTIVE PROTEIN < 0.05 mg/dL (<0.30)
[2023-10-31 15:28] LABS: BACTERIA,URINE FEW /hpf (FEW); EPITHELIAL CELLS,URINE 0-5 /hpf (0-5); HYALINE CASTS,URINE 0-5 /lpf (0-5); MUCUS,URINE FEW /hpf (FEW); RBC,URINE 0-5 /hpf (0-5)
[2023-10-31 16:35] VITALS: BP 131/50; PULSE 75
== END 2023-10-31 16:10 | disposition home or self-care (01) ==
LOC: JD.ED 11:53
DX: R06.02 Shortness of breath (principal); R11.2 Nausea with vomiting, unspecified; I13.0 Hypertensive heart and chronic kidney disease with heart failure and stage 1 through stage 4 chronic kidney disease, or unspecified chronic kidney disease; I50.9 Heart failure, unspecified; N18.9 Chronic kidney disease, unspecified; I48.91 Unspecified atrial fibrillation; I25.10 Atherosclerotic heart disease of native coronary artery without angina pectoris; I25.2 Old myocardial infarction; K21.9 Gastro-esophageal reflux disease without esophagitis; E11.22 Type 2 diabetes mellitus with diabetic chronic kidney disease; Z86.16 Personal history of COVID-19; Z79.82 Long term (current) use of aspirin; Z79.899 Other long term (current) drug therapy; Z95.5 Presence of coronary angioplasty implant and graft
CPT/HCPCS: 36415; 71045; 80053; 81001; 83605; 83690; 83735; 83880; 84484; 85025; 86140; 87086; 93005; 99285; U0002

== ENCOUNTER 2024-07-16 20:40 | Emergency (ER) | payer MEDICARE, OTHER ==
[2024-07-16] MEDS ORDERED: Sodium Chloride 0.9% 10 ML Syringe FLUSH PRN (20:57)
[2024-07-16 21:17] VITALS: PULSE 80
[2024-07-16 21:17] LABS: BASOPHILS ABSOLUTE AUTO 0.1 K/mm3 (0.0-0.2); BASOPHILS PERCENT AUTO 0.5 % (0.0-1.0); EOSINOPHILS PERCENT AUTO 0.4 % (0.0-6.0); HEMATOCRIT 37.5 % (37.0-47.0); HEMOGLOBIN 12.3 gm/dl (12.0-16.0); IMMATURE GRAN ABSOLUTE AUTO 0.06 K/mm3 (0.00-0.05); IMMATURE GRAN PERCENT AUTO 0.5 % (0.0-0.4); LYMPHOCYTES ABSOLUTE AUTO 2.4 K/mm3 (1.0-4.8); LYMPHOCYTES PERCENT AUTO 21.3 % (24.0-44.0); MEAN CORPUSCULAR HEMOGLOBIN 30.7 pg (28.0-32.0); MEAN CORPUSCULAR HGB CONC 32.8 g/dl (32.0-36.0); MEAN CORPUSCULAR VOLUME 93.5 fl (83.0-99.0); MEAN PLATELET VOLUME 8.9 fl (9.4-12.3); MONOCYTES ABSOLUTE AUTO 0.7 K/mm3 (0.0-0.8); MONOCYTES PERCENT AUTO 6.1 % (0.0-8.0); NEUTROPHILS PERCENT AUTO 71.2 % (41.0-71.0); PLATELET COUNT,PLT 311 K/mm3 (150-400); RED BLOOD CELL COUNT 4.01 M/mm3 (4.10-5.30); WHITE BLOOD CELL COUNT,WBC 11.28 K/mm3 (3.9-11.3)
[2024-07-16 21:35] LABS: INR 1.06; PROTHROMBIN TIME 11.2 SECONDS (9.7-12.0)
[2024-07-16 21:40] LABS: A/G RATIO 0.7 (1-2); ALBUMIN 3.1 g/dl (3.4-5.0); ANION GAP 13.6 (5-15); BILIRUBIN TOTAL 0.4 mg/dL (0.2-1.0); BUN/CREATININE RATIO 13.6 (14-18); CALCIUM 9.8 mg/dL (8.5-10.1); CREATININE 1.1 mg/dL (0.55-1.02); EST CRCL DRUG DOSING (CG) 29.3 mL/min; PROTEIN TOTAL,TP 7.5 g/dl (6.4-8.2)
[2024-07-16 21:45] LABS: POTASSIUM,K 3.6 mEq/L (3.5-5.1)
[2024-07-16 23:18] VITALS: BP 122/80
== END 2024-07-16 23:28 | disposition home or self-care (01) ==
LOC: JD.ED 20:40
DX: S80.02XA Contusion of left knee, initial encounter (principal); S00.33XA Contusion of nose, initial encounter; I25.10 Atherosclerotic heart disease of native coronary artery without angina pectoris; I25.2 Old myocardial infarction; I13.0 Hypertensive heart and chronic kidney disease with heart failure and stage 1 through stage 4 chronic kidney disease, or unspecified chronic kidney disease; I50.9 Heart failure, unspecified; N18.9 Chronic kidney disease, unspecified; K21.9 Gastro-esophageal reflux disease without esophagitis; E11.22 Type 2 diabetes mellitus with diabetic chronic kidney disease; Z86.16 Personal history of COVID-19; Z95.5 Presence of coronary angioplasty implant and graft; Z79.82 Long term (current) use of aspirin; Z79.51 Long term (current) use of inhaled steroids; Z79.899 Other long term (current) drug therapy; W19.XXXA Unspecified fall, initial encounter
CPT/HCPCS: 36415; 70450; 70450-26; 70486; 70486-26; 71045; 71045-26; 72125; 72125-26; 72128; 72128-26; 80053; 83880; 85025; 85610; 93005; 93010; 99284

== ENCOUNTER 2024-09-25 13:29 | Emergency (ER) | payer MEDICARE, OTHER ==
[2024-09-25] MEDS: Acetaminophen/HYDROcodone 325-5 MG Tab PO ONE (14:32)
[2024-09-25 16:08] VITALS: BP 142/77; PULSE 88
== END 2024-09-25 15:55 | disposition home or self-care (01) ==
LOC: JD.ED 13:29
DX: M62.830 Muscle spasm of back (principal); G89.29 Other chronic pain; E78.00 Pure hypercholesterolemia, unspecified; I11.0 Hypertensive heart disease with heart failure; I50.9 Heart failure, unspecified; I25.10 Atherosclerotic heart disease of native coronary artery without angina pectoris; K21.9 Gastro-esophageal reflux disease without esophagitis; Z79.82 Long term (current) use of aspirin; Z86.16 Personal history of COVID-19; W19.XXXA Unspecified fall, initial encounter
CPT/HCPCS: 72131; 99283; A9270

== ENCOUNTER 2025-02-05 17:54 | Emergency (ER) | payer MEDICARE, OTHER ==
[2025-02-05 18:15] LABS: BASOPHILS ABSOLUTE AUTO 0.1 K/mm3 (0.0-0.2); BASOPHILS PERCENT AUTO 0.4 % (0.0-1.0); EOSINOPHILS ABSOLUTE AUTO 0.1 K/mm3 (0.0-0.4); EOSINOPHILS PERCENT AUTO 0.7 % (0.0-6.0); IMMATURE GRAN ABSOLUTE AUTO 0.06 K/mm3 (0.00-0.05); IMMATURE GRAN PERCENT AUTO 0.4 % (0.0-0.4); LYMPHOCYTES ABSOLUTE AUTO 1.5 K/mm3 (1.0-4.8); LYMPHOCYTES PERCENT AUTO 10.8 % (24.0-44.0); MEAN PLATELET VOLUME 9.0 fl (9.4-12.3); MONOCYTES ABSOLUTE AUTO 0.8 K/mm3 (0.0-0.8); MONOCYTES PERCENT AUTO 5.9 % (0.0-8.0); NEUTROPHILS ABSOLUTE AUTO 11.0 K/mm3 (1.8-7.7); NEUTROPHILS PERCENT AUTO 81.8 % (41.0-71.0); NRBC ABSOLUTE 0.00 (0.00-0.02); NRBC PERCENT 0.0 % (0.0-0.2); PLATELET COUNT,PLT 260 K/mm3 (150-400); RED BLOOD CELL COUNT 4.43 M/mm3 (4.10-5.30); WHITE BLOOD CELL COUNT,WBC 13.42 K/mm3 (3.9-11.3)
[2025-02-05 18:39] LABS: A/G RATIO 0.9 (1-2); ALANINE AMINOTRANSFERASE,ALT 21.0 U/L (14-59); ASPARTATE AMNIOTRANSFERASE,AST 28.0 U/L (15-37); BILIRUBIN TOTAL 0.4 mg/dL (0.2-1.0); BLOOD UREA NITROGEN,BUN 24.0 mg/dL (7-18); CARBON DIOXIDE,CO2 31.0 mEq/L (21-32); CHLORIDE,CL 101.0 mEq/L (98-107); CREATININE 1.3 mg/dL (0.55-1.02); EST CRCL DRUG DOSING (CG) 24.38 mL/min; ESTIMATED GFR 41.0 mL/min (>60); GLUCOSE RANDOM 177.0 mg/dL (70-99); POTASSIUM,K 3.2 mEq/L (3.5-5.1); PROTEIN TOTAL,TP 7.7 g/dl (6.4-8.2); SODIUM,NA 142.0 mEq/L (136-145); TROPONIN I HIGH SENSITIVITY 10.0 pg/mL (<=51)
[2025-02-05 19:32] VITALS: BP 127/79; PULSE 81
== END 2025-02-05 19:16 | disposition home or self-care (01) ==
LOC: JD.ED 17:54
DX: S00.83XA Contusion of other part of head, initial encounter (principal); I13.0 Hypertensive heart and chronic kidney disease with heart failure and stage 1 through stage 4 chronic kidney disease, or unspecified chronic kidney disease; I50.9 Heart failure, unspecified; I25.2 Old myocardial infarction; I25.10 Atherosclerotic heart disease of native coronary artery without angina pectoris; I48.91 Unspecified atrial fibrillation; E11.9 Type 2 diabetes mellitus without complications; M19.90 Unspecified osteoarthritis, unspecified site; N18.9 Chronic kidney disease, unspecified; Z86.16 Personal history of COVID-19; Z90.710 Acquired absence of both cervix and uterus; W01.198A Fall on same level from slipping, tripping and stumbling with subsequent striking against other object, initial encounter
CPT/HCPCS: 36415; 70450; 70450-26; 80053; 84484; 85025; 93005; 93010; 99283; 99284